=== PATIENT | male | born 1955 | race Caucasian/White ===

== ENCOUNTER 2021-01-13 07:46 | Outpatient (REF) | payer MEDICARE, SELFPAY ==
[2021-01-13 11:33] LABS: Basophils Absolute Auto 0.1 X10*3/uL (0.0-0.2); Imm Gran Pct Auto 0.3 % (0.0-0.4); MANUAL DIFF FLAG SCAN; Neutrophils Percent Auto 70.7 % (45-73); Red Blood Count 5.29 X10*6/uL (4.60-5.80); SCAN SMEAR FLAG 1
[2021-01-13 11:35] LABS: Eosinophils Absolute Auto 0.4 X10*3/uL (0.0-0.4); Eosinophils Percent Auto 3.5 % (0-4); Hematocrit 48.9 % (42-52); Hemoglobin 17.1 g/dl (14.0-18.0); Imm Gran Abs Auto 0.04 X10*3/uL (0.00-0.03); Lymphocytes Absolute Auto 2.1 X10*3/uL (1.2-4.9); Lymphocytes Percent Auto 17.7 % (20-40); Mean Corpuscular Hemoglobin 32.3 pg (27.0-33.0); Mean Corpuscular Volume 92.4 fL (80-98); Monocytes Absolute Auto 0.8 X10*3/uL (0.1-1.2); Monocytes Percent Auto 6.8 % (2-11); Neutrophils Absolute Auto 8.3 X10*3/uL (2.0-8.3); PLT ABN DIST 1; PLT CLUMP 1; Red Cell Distribution Width 12.3 % (11.0-16.0)
[2021-01-13 12:03] LABS: White Blood Count 11.7 X10*3/uL (4.8-10.8)
[2021-01-13 12:04] LABS: Platelet Count 174 X10*3/uL (160-400); SLIDE REVIEW VERIFIED
== END 2021-01-13 07:47 | disposition home or self-care (01) ==
LOC: HO.WFDLDS 07:46
PROVIDERS: Visit Provider Student in an Organized Health Care Education/Training Program
DX: J44.9 Chronic obstructive pulmonary disease, unspecified (principal)
CPT/HCPCS: 36415; 85025

== ENCOUNTER 2021-04-29 11:26 | Outpatient (REF) | payer MEDICARE, SELFPAY ==
[2021-04-29 14:57] LABS: Prostate Specific Antigen Scr < 0.05 ng/mL (<0.05-4.0); TSH reflex Free T4 0.65 uIU/mL (0.32-4.0)
[2021-04-29 15:07] LABS: Alanine Aminotransferase 53 U/L (0-40); Alkaline Phosphatase 85 U/L (39-117); Anion Gap 10 (12-20); Aspartate Amino Transferase 38 U/L (5-37); Bilirubin Total 0.3 mg/dL (0.0-1.0); Blood Urea Nitrogen 22 mg/dL (9-16); Carbon Dioxide 29 mmol/L (22-29); Chloride 107 mmol/L (96-108); Cholesterol 89 mg/dL; Estimated Glomerular Filt Rate > 60; Glucose Fasting 89 mg/dL (60-99); HDL Cholesterol 24 mg/dL; LDL Cholesterol Calculated 54 mg/dl; Potassium 4.1 mmol/L (3.3-5.1); Sodium 142 mmol/L (135-145); Total Protein 6.6 g/dL (6.5-8.0); Triglycerides 57 mg/dL
== END 2021-04-29 11:27 | disposition home or self-care (01) ==
LOC: HO.WFDLDS 11:26
PROVIDERS: Visit Provider Family Medicine
DX: Z00.00 Encounter for general adult medical examination without abnormal findings (principal); Z12.5 Encounter for screening for malignant neoplasm of prostate
CPT/HCPCS: 36415; 80053; 80061; 84153; 84443

== ENCOUNTER → 2021-05-19 10:18 | Outpatient (BNVA) | payer MEDICARE, SELFPAY | PROVIDERS: PCP Family Medicine; Visit Provider Surgery Vascular Surgery | DX: I73.9 Peripheral vascular disease, unspecified (principal); I65.21 Occlusion and stenosis of right carotid artery; Z79.82 Long term (current) use of aspirin; Z79.899 Other long term (current) drug therapy | CPT/HCPCS: 99202 ==

== ENCOUNTER → 2021-06-02 13:10 | Outpatient (BNVA) | payer MEDICARE, SELFPAY | PROVIDERS: PCP Family Medicine; Referring Provider Family Medicine; Visit Provider Internal Medicine | DX: I25.10 Atherosclerotic heart disease of native coronary artery without angina pectoris (principal); I10 Essential (primary) hypertension; I73.9 Peripheral vascular disease, unspecified; F17.200 Nicotine dependence, unspecified, uncomplicated; I25.2 Old myocardial infarction; Z79.82 Long term (current) use of aspirin; Z79.899 Other long term (current) drug therapy; Z95.5 Presence of coronary angioplasty implant and graft | CPT/HCPCS: 93005; 99202 ==

== ENCOUNTER 2021-06-16 10:06 | Outpatient (REF) | payer MEDICARE, SELFPAY ==
--- NOTE | ~2021-06-16 | US_ITS ---
EXAMINATION: US EXTRACRANIAL CAROTID DUPLEX, BILATERAL CLINICAL INFORMATION: History of endarterectomy. COMPARISON: None TECHNIQUE: Real-time ultrasound and Doppler techniques (integrating B-mode 2-D vascular images, Doppler spectral analysis and color-flow Doppler imaging) were utilized to interrogate the extracranial carotid arteries, the vertebral arteries and proximal subclavian arteries bilaterally. The degree of stenosis is determined by criteria similar to NASCET. FINDINGS: Right Side: 1. There is moderate atherosclerotic plaque seen in the proximal ICA region. 2. The common carotid artery PSV proximally is 95 cm/s and distally 94 cm/s. 3. The proximal internal carotid artery velocities are 160 cm/s systolic and 27 cm/s diastolic. 4. The proximal external carotid artery PSV is 317 cm/s. 5. The vertebral artery shows antegrade flow. 6. The subclavian artery waveforms are normal. Left Side: 1. There is mild atherosclerotic plaque seen in the bifurcation/proximal ICA region. 2. The common carotid artery PSV proximally is 110 cm/s and distally 110 cm/s. 3. The proximal internal carotid artery velocities are 117 cm/s systolic and 24 cm/s diastolic. 4. The proximal external carotid artery PSV is 132 cm/s. 5. The vertebral artery shows antegrade flow. 6. The subclavian artery waveforms are normal. US/US carotid duplex BI IMPRESSION: 1. RIGHT: Moderate, hemodynamically significant stenosis of the proximal right internal carotid artery corresponding to a 50-79% stenosis by velocity criteria. 2. LEFT: Minimal, non-hemodynamically significant stenosis of the proximal left internal carotid artery corresponding to a 0-49% stenosis by velocity criteria.
--- NOTE | ~2021-06-16 | US_ITS ---
EXAMINATION: COLOR-FLOW DUPLEX IMAGING OF THE BILATERAL LOWER EXTREMITY ARTERIAL SYSTEM. VELOCITY MEASUREMENTS THROUGHOUT THE FEMORAL ARTERIES WITH ANKLE-BRACHIAL PERIPHERAL ARTERIAL TESTING. Interventional Radiologist: Jarad Vázquez M.D., F.S.I.R., F.A.C.R. CLINICAL INFORMATION: This is a 66-year-old male with peripheral vascular disease. RIGHT FEMORAL RUNOFF VELOCITIES: The right common femoral artery measures 164 cm/s and triphasic. The right profunda femoral artery is 195 cm/s and is triphasic. Right proximal superficial femoral artery measures 128 cm/s and triphasic. Mid superficial femoral artery is 75 cm/s and monophasic. Distal right superficial femoral artery measures 118 cm/s and is monophasic. Right popliteal velocity measures 44 cm/s and is monophasic. The posterior tibial artery velocity measures 25 cm/s and was biphasic. The right ankle-brachial index is 0.72. LEFT FEMORAL RUNOFF VELOCITIES: The left common femoral artery measures 148 cm/s and triphasic. The left profunda femoral artery is 176 cm/s and is biphasic. Left proximal superficial femoral artery measures 63 cm/s and biphasic. Mid superficial femoral artery is occluded. Distal left superficial femoral artery measures 12 cm/s and is monophasic. Left popliteal velocity measures 12 cm/s and is monophasic. The posterior tibial artery velocity measures 23 cm/s and was monophasic. The left ankle-brachial index is 0.45. US/US arterial duplex LE BI IMPRESSION: 1. There is a suspicion for a hemodynamically significant stenosis in the mid right superficial femoral artery with a decreased ankle-brachial index of 0.7. 2. There is a an occlusion in the left mid superficial femoral artery with a hemodynamically significant decreased ankle-brachial index of 0.5.
--- NOTE | ~2021-06-16 | US_ITS ---
EXAMINATION: COLOR-FLOW DUPLEX IMAGING OF THE BILATERAL LOWER EXTREMITY ARTERIAL SYSTEM. VELOCITY MEASUREMENTS THROUGHOUT THE FEMORAL ARTERIES WITH ANKLE-BRACHIAL PERIPHERAL ARTERIAL TESTING. Interventional Radiologist: Jarad Vázquez M.D., F.S.I.R., F.A.C.R. CLINICAL INFORMATION: This is a 66-year-old male with peripheral vascular disease. RIGHT FEMORAL RUNOFF VELOCITIES: The right common femoral artery measures 164 cm/s and triphasic. The right profunda femoral artery is 195 cm/s and is triphasic. Right proximal superficial femoral artery measures 128 cm/s and triphasic. Mid superficial femoral artery is 75 cm/s and monophasic. Distal right superficial femoral artery measures 118 cm/s and is monophasic. Right popliteal velocity measures 44 cm/s and is monophasic. The posterior tibial artery velocity measures 25 cm/s and was biphasic. The right ankle-brachial index is 0.72. LEFT FEMORAL RUNOFF VELOCITIES: The left common femoral artery measures 148 cm/s and triphasic. The left profunda femoral artery is 176 cm/s and is biphasic. Left proximal superficial femoral artery measures 63 cm/s and biphasic. Mid superficial femoral artery is occluded. Distal left superficial femoral artery measures 12 cm/s and is monophasic. Left popliteal velocity measures 12 cm/s and is monophasic. The posterior tibial artery velocity measures 23 cm/s and was monophasic. The left ankle-brachial index is 0.45. US/US NATALYA complete IMPRESSION: 1. There is a suspicion for a hemodynamically significant stenosis in the mid right superficial femoral artery with a decreased ankle-brachial index of 0.7. 2. There is a an occlusion in the left mid superficial femoral artery with a hemodynamically significant decreased ankle-brachial index of 0.5.
== END 2021-06-16 10:07 | disposition home or self-care (01) ==
LOC: HO.US 10:06
PROVIDERS: PCP Family Medicine; Visit Provider Surgery Vascular Surgery
DX: I73.9 Peripheral vascular disease, unspecified (principal); I65.29 Occlusion and stenosis of unspecified carotid artery
CPT/HCPCS: 93880; 93923; 93925

== ENCOUNTER → 2021-06-30 13:43 | Outpatient (BNVA) | payer MEDICARE, SELFPAY | PROVIDERS: PCP Family Medicine; Visit Provider Surgery Vascular Surgery | DX: I65.29 Occlusion and stenosis of unspecified carotid artery (principal); I73.9 Peripheral vascular disease, unspecified | CPT/HCPCS: 99212 ==

== ENCOUNTER → 2021-07-07 14:54 | Outpatient (BNVA) | payer MEDICARE, SELFPAY | PROVIDERS: PCP Family Medicine; Visit Provider Urology | DX: C61 Malignant neoplasm of prostate (principal) | CPT/HCPCS: 99202 ==

== ENCOUNTER 2021-07-15 05:57 | Day surgery (SDC) | payer MEDICARE, SELFPAY ==
[2021-07-15] VITALS (9 sets, daily range): BP systolic 120–152; BP diastolic 43–67; PULSE 45–61; RESP 16–17; TEMP 36.1–36.8; O2SAT 96–100; BMI 26.8
[2021-07-15 06:39] LABS: MANUAL DIFF FLAG NO
[2021-07-15] MEDS: 0.9 % Sodium Chloride 1,000 ML 100 ML IVCONT (06:41)
[2021-07-15 06:44] LABS: Basophils Absolute Auto 0.1 X10*3/uL (0.0-0.2); Eosinophils Absolute Auto 0.6 X10*3/uL (0.0-0.4); Eosinophils Percent Auto 5.1 % (0-4); Hematocrit 48.9 % (42.0-52.0); Hemoglobin 16.9 g/dl (14.0-18.0); Imm Gran Abs Auto 0.02 X10*3/uL (0.00-0.03); Imm Gran Pct Auto 0.2 % (0.0-0.4); Lymphocytes Absolute Auto 2.4 X10*3/uL (1.2-4.9); Lymphocytes Percent Auto 21.3 % (20-40); Mean Corpuscular HGB Conc 34.6 g/dl (31.0-36.0); Mean Corpuscular Hemoglobin 31.9 pg (27.0-33.0); Mean Corpuscular Volume 92.3 fL (80.0-98.0); Mean Platelet Volume 12.7 fL (9.4-12.4); Monocytes Absolute Auto 0.7 X10*3/uL (0.1-1.2); Monocytes Percent Auto 6.2 % (2-11); Neutrophils Absolute Auto 7.3 x10*3/uL (2.0-8.3); Neutrophils Percent Auto 66.2 % (45-73); Platelet Count 166 X10*3/uL (160-400); Red Cell Distribution Width 12.6 % (11.0-16.0); White Blood Count 11.1 X10*3/uL (4.8-10.8)
[2021-07-15 06:55] LABS: Blood Urea Nitrogen 24 mg/dL (9-16); Creatinine Clr Calc Pharmacy 54.5; Estimated Glomerular Filt Rate > 60
--- NOTE | 2021-07-15 09:32 | P.OP_ITS ---
Operative Note Operative Note Date of Service: 07/15/21 Narrative: Angiogram report from [facility] Preoperative diagnosis: Atherosclerosis of right lower extremity with activity limiting claudication Postoperative diagnosis: Same Procedure: 1. Ultrasound-guided left common femoral access 2. Aortogram with bilateral lower extremity runoff 3. Right SFA atherectomy and stent Surgeon:Naveed Mckeon M.D., FACS, RPVI Automation Operator:None Anesthesia: Local with moderate conscious sedation. Total intraservice moderat e sedation time was 66 minutes. I monitored the patient's level of consciousness and physiologic status continuously throughout the procedure. Specimens:none Drains:none Estimated blood loss: Less than 10 ml Implant: Medtronic Ev-3 5 x 60 stent Indications: 66-year-old gentleman with prior smoking history has severe activity limiting claudication on bilateral lower extremities. He reports symptomatic Masha he is right worse than left. He now presents for endovascular intervention The patient has signed the informed consent after reviewing risks, complications, benefits, and alternatives previously discussed with the patient. The patient was given the opportunity to ask any additional questions or voice any concerns. All questions were answered to the patient's satisfaction. Procedure in detail: Patient was brought to the angiography suite prior to which a time-out was called for patient identification and site verification. Bilateral groins were prepped and draped in the standard surgical fashion. Under ultrasound guidance leftcommon femoral was punctured with micro puncture needle and wire. Subsequently a precision 5 [place] sheath was then placed. Bentson wire was advanced to the level of the aorta. 5 [place] Flush catheter was brought up and parked at the level of the renal arteries. Aortogram was then undertaken. Catheter was brought down to the level of the iliac bifurcation. Iliacs were subsequently imaged. Catheter was then brought in up and over to the right side SFA. Runoff study was then undertaken. We noted in the right distal SFA near Gallo's canal there was a near total occlusion. We then gave 5000 units of systemic heparin. After 5 minutes of circulation time up and over 6 [place] sheath was then placed. We advanced a Glidewire Advantage. We were able to traverse the lesion. Once across we exchanged out for 5 [place] spider wire. Hawk-1 atherectomy device was then used. Multiple unidirectional passes were then undertaken. This did reduce the atherosclerotic burden. There was still residual stenosis and a question of a focal dissection. At this time we plasty the area with a 5 x 40 balloon. Subsequently we brought in a 5 x 60 regular stent. Once in position this was then subsequently deployed. Post deployment we plasty this area with a 5 x 40 balloon. This was to obtain good wall apposition. Once this was accomplished we but the catheter wire sheath back to the ipsilateral side which was the left lower extremity. Runoff of this still extremity was undertaken as well. No intervention was performed on the left lower extremity. Once this was all accomplished StarClose closure device was deployed. At the end the case sponge instrument counts were correct. Patient tolerated the procedure well. Returned to recovery with stable vitals. Interpretation of films: 1. Ultrasound demonstrates appropriate femoral puncture. Image of which was saved. 2. Aortogram demonstrates appropriate caliber aorta. Minimal disease. Appropriate take-off of the renals. 3. Iliac images demonstrate small in caliber and mild disease at the takeoff of the right iliac. 4. Right Leg Common femoral artery: Mild disease in the common femoral area Profundus Femoris: No significant disease Superficial femoral artery: Smaller in caliber and high-grade stenosis at Gallo's canal Popliteal artery (p1,p2,p3): Reconstitutes Anterior tibial artery: Patent all the way down to the ankle Peroneal artery: Occluded Posterior tibial artery: Occluded Dorsalis pedis/plantar arch: Incomplete 4. Left Leg Common femoral artery: No significant disease Profundus Femoris: No significant disease Superficial femoral artery: Total occlusion from origin with reconstitution at the above knee popliteal Popliteal artery (p1,p2,p3): Small in caliber with significant disease at the P2 segment of the behind knee popliteal Anterior tibial artery: Patent all the way down to the ankle Peroneal artery: Occluded Posterior tibial artery: Occluded Dorsalis pedis/plantar arch: Incomplete Conclusion: 1. Successful atherectomy and stent of right SFA. Should left lower extremity need intervention this would be an open fem below-knee bypass. 2. Anticoagulation status: Continue aspirin and Plavix for 6 months This note is constructed using voice recognition software. While every effort has been made to ensure accuracy, what job titles mean errors may have been included. Thank you for allowing me to participate in the care of your patient. Yours sincerely, Naveed Mckeon MD, FACS, R.P.V.I.
[2021-07-15] MEDS: Clopidogrel Bisulfate 300 MG TABLET PO (09:38)
== END 2021-07-15 12:26 | disposition home or self-care (01) ==
PROVIDERS: PCP Family Medicine; Visit Provider Surgery Vascular Surgery
DX: I70.211 Atherosclerosis of native arteries of extremities with intermittent claudication, right leg (principal); I10 Essential (primary) hypertension; I25.2 Old myocardial infarction; E78.00 Pure hypercholesterolemia, unspecified; Z79.02 Long term (current) use of antithrombotics/antiplatelets; Z79.82 Long term (current) use of aspirin; Z79.899 Other long term (current) drug therapy; F17.210 Nicotine dependence, cigarettes, uncomplicated
CPT/HCPCS: 36415; 37227; 76937; 82565; 84520; 85025; 99152; 99153; C1714; C1725; C1760; C1769; C1876; C1884; C1887; J2250; J3010; Q9967

== ENCOUNTER 2021-07-21 07:28 | Outpatient (REF) | payer MEDICARE, SELFPAY ==
[2021-07-21 12:13] LABS: Alanine Aminotransferase 49 U/L (0-40); Albumin Level 4.1 g/dL (3.5-5.0); Alkaline Phosphatase 84 U/L (39-117); Anion Gap 14 (12-20); Aspartate Amino Transferase 31 U/L (5-37); Bilirubin Total 0.8 mg/dL (0.0-1.0); Blood Urea Nitrogen 24 mg/dL (9-16); Calcium 9.3 mg/dL (8.4-10.2); Carbon Dioxide 26 mmol/L (22-29); Chloride 103 mmol/L (96-108); Cholesterol 110 mg/dL; Estimated Glomerular Filt Rate > 60; Glucose Random 95 mg/dL (60-115); HDL Cholesterol 28 mg/dL; LDL Cholesterol Calculated 70 mg/dl; Potassium 4.2 mmol/L (3.3-5.1); Sodium 139 mmol/L (135-145); Total Protein 6.7 g/dL (6.5-8.0); Triglycerides 61 mg/dL
== END 2021-07-21 07:29 | disposition home or self-care (01) ==
LOC: HO.WFDLDS 07:28
PROVIDERS: Visit Provider Family Medicine
DX: E78.6 Lipoprotein deficiency (principal); R74.8 Abnormal levels of other serum enzymes
CPT/HCPCS: 36415; 80053; 80061

== ENCOUNTER → 2021-07-29 09:24 | Outpatient (REF) | payer MEDICARE, SELFPAY ==
--- NOTE | 2021-07-29 09:28 | CA_ITS ---
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 Study Quality: Adequate ECG Rhythm: Bradycardia Conclusions: - The left ventricular systolic function is normal. The calculated ejection fraction is 67% by biplane method. - There is mild calcification of the aortic valve. - The mid inferior segment is hypokinetic. - The basal inferior segment is akinetic. Findings Left Ventricle Normal left ventricular cavity size. The left ventricular systolic function is normal. The calculated ejection fraction is 67% by biplane method. There is evidence of regional wall motion abnormalities. E/E prime ratio is >15, consistent with elevated filling pressures. Evidence suggests grade I (mild) diastolic dysfunction. There is mild septal asymmetric hypertrophy. LV peak GLS -17.5%. Wall Motion Rest Echo Findings The mid inferior segment is hypokinetic. The basal inferior segment is akinetic. Right Ventricle Normal right ventricular cavity size and systolic function. Atria Both atria are normal in size. Aortic Valve There is a normal trileaflet aortic valve. There is mild calcification of the aortic valve. There is no aortic valve stenosis. There is no aortic valve regurgitation. Mitral Valve The mitral valve appears normal. There is trace mitral valve regurgitation. There is no mitral valve stenosis. Pulmonic Valve The pulmonic valve is likely normal. Tricuspid Valve Normal tricuspid valve structure. There is no tricuspid valve regurgitation. Tricuspid regurgitation envelope is inadequate for calculation of right ventricular systolic pressure. Great Vessels The aortic annulus, sinuses of valsalva, and asc aorta are normal in size. Venous The inferior vena cava is normal in size and collapses greater than 50% with inspiration. Pericardium/Pleural There is no evidence of pericardial effusion. Prior Study Comparison No prior study available for comparison. Measurements 2D Linear Measurements IVSd: 1.21 0.6-0.9/0.6-1.0 cm LVIDd: 4.52 3.9-5.3/4.2-5.9 cm LVIDs: 3.16 2.0-3.6 cm LVPWd: 0.81 0.7-1.1 cm LA Diam: 3.60 2.7-3.8/3.0-4.0 cm LV Mass: 195.01 67-162/88-224 g LVOT Diam: 2.00 3.0+(-)1.3 cm 2D Systolic Function EF 4C: 64.70 >55% EF 2C: 67.70 >55% EF BiP: 66.60 >55% Mitral Valve MV Pk E: 1.02 MV PK A: 0.69 MV Decel Time: 210.00 E/A: 1.50 E'Lateral: 7.62 E'Medial: 5.55 E/E' Med: 18.40 E/E' Lat: 13.40 PHT: 62.00 MVA PHT: 3.55 Decel [place]: 4.83 Aortic Valve AoV Pk Derrell: 1.11 AoV Mn Derrell: 0.74 AoV VTI: 0.24 AoV Pk Grad: 5.00 Aov Mn Grad: 2.00 QUE Cont.VTI: 2.69 LVOT LVOT Pk Derrell: 1.04 LVOT Mn Derrell: 0.67 LVOT VTI: 0.21 LVOT Pk Grad: 4.00 LVOT Mn Grad: 2.00 LVOT Diam: 2.00 LVOT Area: 3.14 Diastolic Function MV Pk E: 1.02 MV Pk A: 0.69 E/A: 1.50 E'Medial: 5.55 E/E' Med: 18.40 E' Laterial: 7.62 E/E' Lat: 13.40 Right Ventricle TAPSE (mm): 18.20 TVS' Derrell: 10.10 Tricuspid Valve RA Press: 3.00 Great Vessels Aorta Sinus of Valsalva: 2.87 2.0-3.[address] [place]: 2.56 1.7-3.4 cm Ao Asc: 3.20 2.1-3.4 cm Pulmonary Veins Pulm Vein S/D 1.30 Pulmonary Valve PV Pk Derrell: 0.98 Peak PV Grad: 4.00 Updated in Other Vendor System with Status of Final Toro Solo MD electronically signed on 07/30/2021 1:50:34 PM with status of Final
== END ==
LOC: HO.CARD 09:24
PROVIDERS: Visit Provider Internal Medicine
DX: I25.10 Atherosclerotic heart disease of native coronary artery without angina pectoris (principal)
CPT/HCPCS: 93306

== ENCOUNTER → 2021-07-30 13:50 | Outpatient (BNVA) | payer MEDICARE, SELFPAY | PROVIDERS: PCP Family Medicine; Visit Provider Surgery Vascular Surgery | DX: I73.9 Peripheral vascular disease, unspecified (principal) | CPT/HCPCS: 99212 ==

== ENCOUNTER → 2021-09-01 09:19 | Outpatient (BNVA) | payer MEDICARE, SELFPAY | PROVIDERS: PCP Family Medicine; Referring Provider Family Medicine; Visit Provider Internal Medicine | DX: I25.10 Atherosclerotic heart disease of native coronary artery without angina pectoris (principal); I73.9 Peripheral vascular disease, unspecified; I10 Essential (primary) hypertension; F17.210 Nicotine dependence, cigarettes, uncomplicated; Z95.5 Presence of coronary angioplasty implant and graft | CPT/HCPCS: 99212 ==

== ENCOUNTER 2021-09-28 09:20 | Outpatient (REF) | payer MEDICARE, SELFPAY ==
--- NOTE | ~2021-09-28 | US_ITS ---
EXAMINATION: COLOR-FLOW DUPLEX IMAGING OF THE BILATERAL LOWER EXTREMITY ARTERIAL SYSTEM. VELOCITY MEASUREMENTS THROUGHOUT THE FEMORAL ARTERIES WITH ANKLE-BRACHIAL PERIPHERAL ARTERIAL TESTING. Interventional Radiologist: Jarad Vázquez M.D., F.S.I.R., F.A.C.R. CLINICAL INFORMATION: This is a 66-year-old male with bilateral peripheral vascular disease. Previous right femoral stent. COMPARISON: Comparison is made to the previous study dated 06/16/2021 which demonstrated a 0.5 left ankle-brachial index and a 0.7 right ankle-brachial index. Monophasic waveforms were also noted throughout the right superficial femoral artery. RIGHT FEMORAL RUNOFF VELOCITIES: The right common femoral artery measures 194 cm/s and triphasic. Previously, this measured 164 cm/s. The right profunda femoral artery is 221 cm/s and is triphasic. Previously, this measured 195 cm/s. Right proximal superficial femoral artery measures 145 cm/s and biphasic. Mid superficial femoral artery is 103 cm/s and biphasic. Previously, this was 75 cm/s and monophasic. Distal right superficial femoral artery measures 86 cm/s and is biphasic. Previously, this was 118 cm/s and monophasic. Right popliteal velocity measures 49 cm/s and is biphasic. Previously, this was 44 cm/s and monophasic. The posterior tibial artery velocity measures 52 cm/s and was biphasic. Previously, this was 25 cm/s and biphasic. The right ankle-brachial index is 0.89. Previously, this measured 0.7. RIGHT SUPERFICIAL FEMORAL ARTERY STENT VELOCITIES: [place] artery proximal to stent: 126 cm/s and biphasic. Proximal stent: 113 cm/s and biphasic. Mid stent: 108 cm/s and biphasic. Distal stent: 107 cm/s and biphasic. [place] artery distal to stent 96 cm/s and biphasic. LEFT FEMORAL RUNOFF VELOCITIES: The left common femoral artery measures 134 cm/s and monophasic. The left profunda femoral artery is 399 cm/s and is monophasic. Left proximal superficial femoral artery measures 108 cm/s. Previously, this was noted to be occluded and confirmed on the angiogram. Mid superficial femoral artery is occluded. This was previously noted to be occluded with low flows distally. Distal left superficial femoral artery is occluded. Left popliteal velocity measures 13 cm/s and is monophasic. Some flow was demonstrated on the previous study in the posterior tibial artery. No flow is seen on the current study. The posterior tibial artery is occluded. The left ankle-brachial index is 0.49. Previously, this measured 0.5. US/US NATALYA complete IMPRESSION: 1. The patient is now status post right superficial femoral artery stenting. The stent appears to be patent. There is improvement in the right ankle-brachial index. There is a focal stenosis in the proximal right profunda femoral artery. 2. The left superficial femoral artery appears to be occluded. There appears to be a high-grade stenosis in the left profunda femoral artery.
--- NOTE | ~2021-09-28 | US_ITS ---
EXAMINATION: COLOR-FLOW DUPLEX IMAGING OF THE BILATERAL LOWER EXTREMITY ARTERIAL SYSTEM. VELOCITY MEASUREMENTS THROUGHOUT THE FEMORAL ARTERIES WITH ANKLE-BRACHIAL PERIPHERAL ARTERIAL TESTING. Interventional Radiologist: Jarad Vázquez M.D., F.S.I.R., F.A.C.R. CLINICAL INFORMATION: This is a 66-year-old male with bilateral peripheral vascular disease. Previous right femoral stent. COMPARISON: Comparison is made to the previous study dated 06/16/2021 which demonstrated a 0.5 left ankle-brachial index and a 0.7 right ankle-brachial index. Monophasic waveforms were also noted throughout the right superficial femoral artery. RIGHT FEMORAL RUNOFF VELOCITIES: The right common femoral artery measures 194 cm/s and triphasic. Previously, this measured 164 cm/s. The right profunda femoral artery is 221 cm/s and is triphasic. Previously, this measured 195 cm/s. Right proximal superficial femoral artery measures 145 cm/s and biphasic. Mid superficial femoral artery is 103 cm/s and biphasic. Previously, this was 75 cm/s and monophasic. Distal right superficial femoral artery measures 86 cm/s and is biphasic. Previously, this was 118 cm/s and monophasic. Right popliteal velocity measures 49 cm/s and is biphasic. Previously, this was 44 cm/s and monophasic. The posterior tibial artery velocity measures 52 cm/s and was biphasic. Previously, this was 25 cm/s and biphasic. The right ankle-brachial index is 0.89. Previously, this measured 0.7. RIGHT SUPERFICIAL FEMORAL ARTERY STENT VELOCITIES: [place] artery proximal to stent: 126 cm/s and biphasic. Proximal stent: 113 cm/s and biphasic. Mid stent: 108 cm/s and biphasic. Distal stent: 107 cm/s and biphasic. [place] artery distal to stent 96 cm/s and biphasic. LEFT FEMORAL RUNOFF VELOCITIES: The left common femoral artery measures 134 cm/s and monophasic. The left profunda femoral artery is 399 cm/s and is monophasic. Left proximal superficial femoral artery measures 108 cm/s. Previously, this was noted to be occluded and confirmed on the angiogram. Mid superficial femoral artery is occluded. This was previously noted to be occluded with low flows distally. Distal left superficial femoral artery is occluded. Left popliteal velocity measures 13 cm/s and is monophasic. Some flow was demonstrated on the previous study in the posterior tibial artery. No flow is seen on the current study. The posterior tibial artery is occluded. The left ankle-brachial index is 0.49. Previously, this measured 0.5. US/US arterial duplex LE BI IMPRESSION: 1. The patient is now status post right superficial femoral artery stenting. The stent appears to be patent. There is improvement in the right ankle-brachial index. There is a focal stenosis in the proximal right profunda femoral artery. 2. The left superficial femoral artery appears to be occluded. There appears to be a high-grade stenosis in the left profunda femoral artery.
== END 2021-09-28 09:21 | disposition home or self-care (01) ==
LOC: HO.US 09:20
PROVIDERS: Visit Provider Surgery Vascular Surgery
DX: I73.9 Peripheral vascular disease, unspecified (principal)
CPT/HCPCS: 93923; 93925

== ENCOUNTER → 2021-10-06 10:04 | Outpatient (BNVA) | payer MEDICARE, SELFPAY | PROVIDERS: PCP Family Medicine; Visit Provider Surgery Vascular Surgery | DX: I73.9 Peripheral vascular disease, unspecified (principal); Z79.02 Long term (current) use of antithrombotics/antiplatelets; Z79.82 Long term (current) use of aspirin; Z79.899 Other long term (current) drug therapy | CPT/HCPCS: 99212 ==

== ENCOUNTER 2021-10-27 08:31 | Outpatient (REF) | payer MEDICARE, SELFPAY ==
[2021-10-27 12:27] LABS: Prostate Specific Antigen < 0.05 ng/mL (<0.05-4.0)
== END 2021-10-27 08:32 | disposition home or self-care (01) ==
LOC: HO.WFDLDS 08:31
PROVIDERS: Visit Provider Urology
DX: Z12.5 Encounter for screening for malignant neoplasm of prostate (principal); C61 Malignant neoplasm of prostate
CPT/HCPCS: 36415; 84153

== ENCOUNTER → 2021-11-06 11:12 | Outpatient (BNVA) | payer MEDICARE, SELFPAY | PROVIDERS: PCP Family Medicine; Visit Provider Urology | DX: C61 Malignant neoplasm of prostate (principal) | CPT/HCPCS: Q3014 ==

== ENCOUNTER 2022-01-06 08:42 | Outpatient (REF) | payer MEDICARE, SELFPAY ==
[2022-01-06 11:41] LABS: Alanine Aminotransferase 57 U/L (0-40); Albumin Level 4.1 g/dL (3.5-5.0); Alkaline Phosphatase 86 U/L (39-117); Anion Gap 17 (12-20); Aspartate Amino Transferase 40 U/L (5-37); Bilirubin Total 0.6 mg/dL (0.0-1.0); Blood Urea Nitrogen 23 mg/dL (9-16); Calcium 8.6 mg/dL (8.4-10.2); Carbon Dioxide 20 mmol/L (22-29); Chloride 101 mmol/L (96-108); Estimated Glomerular Filt Rate > 60; Glucose Random 75 mg/dL (60-115); Potassium 4.2 mmol/L (3.3-5.1); Sodium 134 mmol/L (135-145); Total Protein 6.9 g/dL (6.5-8.0)
[2022-01-06 11:59] LABS: Creatinine Urine 31.59 mg/dL; Microalbumin Urine < 5.0 mg/L
== END 2022-01-06 08:43 | disposition home or self-care (01) ==
LOC: HO.WFDLDS 08:42
PROVIDERS: Visit Provider Family Medicine
DX: I10 Essential (primary) hypertension (principal); R74.8 Abnormal levels of other serum enzymes
CPT/HCPCS: 36415; 80053; 82043

== ENCOUNTER → 2022-03-02 09:26 | Outpatient (BNVA) | payer MEDICARE, SELFPAY | PROVIDERS: PCP Family Medicine; Referring Provider Family Medicine; Visit Provider Internal Medicine | DX: I25.10 Atherosclerotic heart disease of native coronary artery without angina pectoris (principal); I73.9 Peripheral vascular disease, unspecified; I10 Essential (primary) hypertension; F17.210 Nicotine dependence, cigarettes, uncomplicated; Z95.5 Presence of coronary angioplasty implant and graft | CPT/HCPCS: 99212 ==

== ENCOUNTER 2022-03-02 10:40 | Outpatient (REF) | payer MEDICARE, SELFPAY ==
[2022-03-02 14:45] LABS: Prostate Specific Antigen < 0.10 ng/mL (<0.05-4.0)
== END 2022-03-02 10:41 | disposition home or self-care (01) ==
LOC: HO.WFDLDS 10:40
PROVIDERS: Visit Provider Urology
DX: Z12.5 Encounter for screening for malignant neoplasm of prostate (principal); C61 Malignant neoplasm of prostate
CPT/HCPCS: 36415; 84153

== ENCOUNTER 2022-03-03 08:22 | Outpatient (REF) | payer MEDICARE, SELFPAY ==
--- NOTE | ~2022-03-03 | US_ITS ---
EXAMINATION: US ABDOMEN LIMITED WITH LIVER ELASTOGRAPHY CLINICAL INFORMATION: Abnormal liver enzymes. COMPARISON: None. TECHNIQUE: Real-time imaging of the abdominal viscera. Noninvasive ultrasound liver fibrosis assessment is performed using Vikas ElastPQ point quantification shear wave elastography (2D-SWE) with a C5-2 MHz transducer. Multiple elastography samples are obtained. FINDINGS: PANCREAS: The pancreas is mostly obscured by overlying gas.. LIVER: Normal. The liver demonstrates normal size, contour and echogenicity. No focal lesion or intrahepatic biliary duct dilatation. The right lobe measures 12.8 cm in length. The left lobe measures 8.0 cm in length. Portal flow is hepatopedal Shear wave liver elastography median stiffness is 1.92 m/s (reference: normal median stiffness is 1.3 m/s or less). IQR/median stiffness to assess sampling precision is 0.14 (reference: good quality data set is IQR/median stiffness of 0.15 or less). GALLBLADDER: The gallbladder is physiologically distended without evidence of stones, sludge, polyps, wall thickening or pericholecystic fluid. There are several echogenic nonmobile polyps in the gallbladder neck largest measuring 0.5 x 0.3 x 0.5 cm. COMMON BILE DUCT: Normal in caliber measuring 0.5 cm in diameter. RIGHT KIDNEY: Normal. No hydronephrosis. No renal calculi or focal parenchymal lesions. The kidney measures 10.0 cm in maximum dimension. FREE FLUID: None. US/US abdomen billy w elastography IMPRESSION: 1. Multiple gallbladder polyps at least 4. No echogenic gallstones or wall thickening. Limited abdominal ultrasound is unremarkable. 2. Liver elastography: Median liver stiffness measures 1.92 m/s which corresponds to cACLD (suggestive). REFERENCE: Society of Radiologists in Ultrasound Liver Stiffness Thresholds (2020): LIVER STIFFNESS THRESHOLDS: *Liver Stiffness equal or less than 1.3 m/s: High probability of being normal. *Liver Stiffness less than 1.7 m/s: In the absence of other known clinical signs, rules out compensated advanced chronic liver disease. *Liver Stiffness 1.7-2.1 m/s: Suggestive of compensated advanced chronic liver disease but need further test for confirmation. *Liver Stiffness over 2.1 m/s: Rules in compensated advanced chronic liver disease. *Liver Stiffness over 2.4 m/s: Suggestive of clinically significant portal hypertension. QUALITY OF DATA SET: *IQR/Median value equal or less than 0.15 implies a quality data set. *IQR/Median value over 0.15 implies a poor quality data set. SIGNIFICANT CHANGE FROM PRIOR EXAM: Significant change if liver stiffness measurement is 10% or greater from prior exam. OTHER CONSIDERATIONS: The stage of liver fibrosis may be overestimated in the setting of acute hepatitis, liver inflammation, elevated liver function tests, hepatic vascular congestion, obstructive cholestasis, non-fasting state, and infiltrative diseases such as amyloidosis and lymphoma. In some patients with NAFLD, the liver stiffness thresholds for compensated advanced chronic liver disease may be lower. In causes other than viral hepatitis and NAFLD, liver stiffness thresholds are not well established.
== END 2022-03-03 08:23 | disposition home or self-care (01) ==
LOC: HO.US 08:22
PROVIDERS: Visit Provider Family Medicine
DX: R74.8 Abnormal levels of other serum enzymes (principal)
CPT/HCPCS: 76705; 76981

== ENCOUNTER 2022-04-08 08:13 | Outpatient (REF) | payer MEDICARE, SELFPAY ==
--- NOTE | ~2022-04-08 | US_ITS ---
EXAMINATION: Noninvasive assessment of the bilateral lower extremities with ARTERIAL DUPLEX and ANKLE BRACHIAL INDICES (ABIs). CLINICAL INFORMATION: Peripheral vascular disease. History of right lower extremity atherectomy with superficial femoral artery stent TECHNIQUE: Duplex Doppler techniques with waveform analysis and measurement of velocities in the bilateral common femoral, profunda femoris, superficial femoral, popliteal and tibial arteries were performed. Additionally, ankle pulse volume recordings, ankle pressure measurements and ankle brachial indices were obtained of the lower extremity arterial system bilaterally. The study was performed only at rest. COMPARISON: 09/28/2021 and 06/16/2021 FINDINGS: DIRECT DUPLEX DOPPLER FINDINGS: RIGHT LEG: Common femoral artery: 152 cm/s, phasicity: Triphasic. Moderate calcified plaque Profunda femoris artery: 64.8 cm/s, phasicity: Triphasic Superficial femoral artery (proximal): 114 cm/s, phasicity: Biphasic Superficial femoral artery (mid/stent): 116 cm/s, phasicity: Biphasic Superficial femoral artery (distal/stent): 149 cm/s, phasicity: Biphasic Popliteal artery: 56.6 cm/s, phasicity: Biphasic Posterior tibial artery: 52.6 cm/s in the proximal segment and 12.4 cm/s in the distal segment, phasicity: Biphasic Peroneal artery: 57.4 cm/s, phasicity: Biphasic LEFT LEG: Common femoral artery: 158 cm/s, phasicity: Monophasic. Moderate calcified plaque Profunda femoris artery: 311 cm/s, phasicity: Monophasic Superficial femoral artery (proximal): 167 cm/s, phasicity: Monophasic Superficial femoral artery (mid): Occluded Superficial femoral artery (distal): Occluded Popliteal artery: 10.4 cm/s, phasicity: Monophasic Posterior tibial artery: 21.8 cm/s, phasicity: Monophasic Peroneal artery: 18.3 cm/s, phasicity: Monophasic ANKLE-BRACHIAL INDEX: Right: 0.77, previously 0.89? Left: 0.52, previously 0.49 ANKLE PRESSURES: Right: PT 120, DP 109 Left: PT?72, DP?74 ANKLE PVR WAVEFORMS: Right: Abnormal Left: Abnormal US/US arterial duplex LE BI IMPRESSION: Right leg: Mildly decreased ankle brachial index. Stent is seen in the right superficial femoral artery is patent without evidence of significant restenosis Left leg: Moderately decreased ankle brachial index which is stable. Occlusion of the left superficial femoral artery which is unchanged with reconstituted markedly dampened flow in the popliteal artery and below-knee runoff vessels NATALYA Reference: - >1.4 = calcified vessels - 0.9 - 1.4 = normal - no significant arterial disease - 0.7 - 0.89 = mild peripheral arterial disease - 0.51 - 0.69 = moderate peripheral arterial disease - ? 0.50 = severe peripheral arterial disease - < .30 = critical arterial disease
== END 2022-04-08 08:14 | disposition home or self-care (01) ==
LOC: HO.US 08:13
PROVIDERS: Visit Provider Surgery Vascular Surgery
DX: I73.9 Peripheral vascular disease, unspecified (principal)
CPT/HCPCS: 93923; 93925

== ENCOUNTER → 2022-04-15 10:19 | Outpatient (BNVA) | payer MEDICARE, SELFPAY | PROVIDERS: PCP Family Medicine; Visit Provider Nurse Practitioner Family | DX: C61 Malignant neoplasm of prostate (principal) | CPT/HCPCS: Q3014 ==

== ENCOUNTER → 2022-05-07 12:30 | Outpatient (BNVA) | payer MEDICARE, SELFPAY | PROVIDERS: PCP Family Medicine; Visit Provider Internal Medicine | DX: R79.89 Other specified abnormal findings of blood chemistry (principal); K82.4 Cholesterolosis of gallbladder | CPT/HCPCS: 99202 ==

== ENCOUNTER → 2022-05-13 09:20 | Outpatient (BNVA) | payer MEDICARE, SELFPAY | PROVIDERS: PCP Family Medicine; Visit Provider Surgery Vascular Surgery | DX: I73.9 Peripheral vascular disease, unspecified (principal); I65.29 Occlusion and stenosis of unspecified carotid artery | CPT/HCPCS: 99212 ==

== ENCOUNTER 2022-05-18 10:00 | Outpatient (REF) | payer MEDICARE, SELFPAY ==
[2022-05-18 10:50] LABS: Hematocrit 49.8 % (42.0-52.0); Hemoglobin 16.8 g/dl (14.0-18.0); Mean Corpuscular HGB Conc 33.7 g/dl (31.0-36.0); Mean Corpuscular Hemoglobin 29.9 pg (27.0-33.0); Mean Corpuscular Volume 88.8 fL (80.0-98.0); Mean Platelet Volume 12.4 fL (9.4-12.4); Platelet Count 174 X10*3/uL (160-400); Red Blood Count 5.61 X10*6/uL (4.60-5.80); Red Cell Distribution Width 12.7 % (11.0-16.0); White Blood Count 10.2 X10*3/uL (4.8-10.8)
[2022-05-18 10:59] LABS: INTERNATIONAL NORM RATIO 1.1 (0.9-1.1); Prothrombin Time 12.2 SEC (10.0-13.1)
[2022-05-18 11:30] LABS: Alanine Aminotransferase 38 U/L (0-40); Albumin Level 4.2 g/dL (3.5-5.0); Alkaline Phosphatase 91 U/L (39-117); Anion Gap 15 (12-20); Aspartate Amino Transferase 26 U/L (5-37); Bilirubin Direct 0.3 mg/dL (0.0-0.5); Blood Urea Nitrogen 20 mg/dL (9-16); Calcium 9.2 mg/dL (8.4-10.2); Carbon Dioxide 26 mmol/L (22-29); Chloride 105 mmol/L (96-108); Estimated Glomerular Filt Rate 59; Glucose Random 82 mg/dL (60-115); Iron 186 mcg/dL (45-160); Percent Iron Saturation 73 % (15-50); Potassium 4.8 mmol/L (3.3-5.1); Sodium 141 mmol/L (135-145); Total Iron Binding Capacity 254 mcg/dL (228-428); Total Protein 6.5 g/dL (6.5-8.0); Unsaturated Iron Binding 68 ug/dL
[2022-05-18 11:38] LABS: Ferritin 734 ng/mL (20-250)
[2022-05-19 04:40] LABS: ~Hepatitis C Antibody Nonreactive (Nonreactive)
[2022-05-19 04:55] LABS: Hepatitis A Antibody IgG Nonreactive (Nonreactive); ~Hepatitis A Antibody IgG 0.39 S/CO (0.00-0.99)
[2022-05-19 04:57] LABS: HBS Num1 0.06 mIU/mL (0-7.99); HBc Num1 0.29 S/CO (0.00-0.79); HBsAGNum1 0.28 S/CO (0.00-0.99); HIV AB/AG Nonreactive (Nonreactive); HIV Num 1 0.05 S/CO (0.00-0.99); Hepatitis B Core Antibody Nonreactive (Nonreactive); Hepatitis B Surface Antigen Negative (Negative); ~Hepatitis B Surface Antibody NONREACTIVE (Nonreactive)
[2022-05-20 14:19] LABS: Immunoglobulin A 176 mg/dL (70-320)
[2022-05-21 13:43] LABS: Transglutaminase IgA <1.0 U/mL
[2022-06-06 07:09] LABS: Phosphatidylethanol 16:0-18:1 SEE COMMENTS
== END 2022-05-18 10:01 | disposition home or self-care (01) ==
LOC: HO.LAB 10:00
PROVIDERS: PCP Family Medicine; Visit Provider Internal Medicine
DX: Z11.4 Encounter for screening for human immunodeficiency virus [HIV] (principal); R79.89 Other specified abnormal findings of blood chemistry; K74.60 Unspecified cirrhosis of liver; R74.8 Abnormal levels of other serum enzymes
CPT/HCPCS: 36415; 80053; 80321; 82248; 82728; 82784; 83540; 85027; 85610; 86364; 86704; 86706; 86708; 86803; 87340; 87389

== ENCOUNTER → 2022-05-21 10:23 | Outpatient (BNVA) | payer MEDICARE, SELFPAY | PROVIDERS: PCP Family Medicine; Visit Provider Surgery | DX: K82.4 Cholesterolosis of gallbladder (principal) | CPT/HCPCS: 99202 ==

== ENCOUNTER 2022-05-26 07:41 | Outpatient (REF) | payer MEDICARE, SELFPAY ==
[2022-05-26 08:45] LABS: Iron 132 mcg/dL (45-160); Percent Iron Saturation 57 % (15-50); Total Iron Binding Capacity 233 mcg/dL (228-428); Unsaturated Iron Binding 101 ug/dL
[2022-05-26 08:50] LABS: Ferritin 788 ng/mL (20-250)
[2022-06-04 15:13] LABS: Phosphatidylethanol 16:0-18:1 None Detected
== END 2022-05-26 07:42 | disposition home or self-care (01) ==
LOC: HO.LAB 07:41
PROVIDERS: PCP Family Medicine; Visit Provider Internal Medicine
DX: R79.89 Other specified abnormal findings of blood chemistry (principal)
CPT/HCPCS: 36415; 80321; 82728; 83540

== ENCOUNTER 2022-06-07 09:27 | Outpatient (REF) | payer MEDICARE, SELFPAY ==
[2022-06-07 09:42] LABS: MANUAL DIFF FLAG NO
[2022-06-07 10:40] LABS: Appearance Urine Clear; Color Urine Yellow; Glucose Urine UA Negative (Negative); Leukocyte Esterase Urine Small (1+) (Negative); Nitrite Urine Negative (Negative); PH 6.5 (5.0-9.0); UMIC TRIGGER UA YES; Urine Blood Negative (Negative); Urine Ketones Negative (Negative); Urine Protein Negative (Neg-Trace)
[2022-06-07 10:45] LABS: Bacteria Urine 4+ (None Seen); Hyaline Casts Urine 0-2 /LPF (0-2); RBC Urine 0-2 /HPF (0-2); Squamous Epithelial Cell Urine 0-2 /HPF (0-2)
[2022-06-07 11:02] LABS: Basophils Absolute Auto 0.2 X10*3/uL (0.0-0.2); Basophils Percent Auto 1.8 % (0-2); Eosinophils Absolute Auto 0.4 X10*3/uL (0.0-0.4); Eosinophils Percent Auto 4.4 % (0-4); Hematocrit 47.3 % (42.0-52.0); Hemoglobin 16.2 g/dl (14.0-18.0); Imm Gran Abs Auto 0.03 X10*3/uL (0.00-0.03); Imm Gran Pct Auto 0.3 % (0.0-0.4); Lymphocytes Absolute Auto 2.1 X10*3/uL (1.2-4.9); Lymphocytes Percent Auto 22.3 % (20-40); Mean Corpuscular HGB Conc 34.2 g/dl (31.0-36.0); Mean Corpuscular Hemoglobin 30.7 pg (27.0-33.0); Mean Corpuscular Volume 89.8 fL (80.0-98.0); Mean Platelet Volume 13.2 fL (9.4-12.4); Monocytes Absolute Auto 0.6 X10*3/uL (0.1-1.2); Monocytes Percent Auto 6.5 % (2-11); Neutrophils Absolute Auto 6.1 x10*3/uL (2.0-8.3); Neutrophils Percent Auto 64.7 % (45-73); Platelet Count 173 X10*3/uL (160-400); Red Blood Count 5.27 X10*6/uL (4.60-5.80); Red Cell Distribution Width 12.9 % (11.0-16.0); White Blood Count 9.5 X10*3/uL (4.8-10.8)
[2022-06-07 11:20] LABS: Creatinine Urine 62.62 mg/dL; Microalbumin Urine < 5.0 mg/L
[2022-06-07 11:34] LABS: Alanine Aminotransferase 30 U/L (0-40); Albumin Level 4.1 g/dL (3.5-5.0); Alkaline Phosphatase 86 U/L (39-117); Anion Gap 14 (12-20); Aspartate Amino Transferase 24 U/L (5-37); Bilirubin Total 0.9 mg/dL (0.0-1.0); Blood Urea Nitrogen 24 mg/dL (9-16); Calcium 8.7 mg/dL (8.4-10.2); Carbon Dioxide 27 mmol/L (22-29); Chloride 106 mmol/L (96-108); Cholesterol 101 mg/dL; Estimated Glomerular Filt Rate 55; Glucose Fasting 77 mg/dL (60-99); HDL Cholesterol 31 mg/dL; Iron 160 mcg/dL (45-160); LDL Cholesterol Calculated 58 mg/dl; Percent Iron Saturation 64 % (15-50); Potassium 4.9 mmol/L (3.3-5.1); Sodium 142 mmol/L (135-145); Total Iron Binding Capacity 249 mcg/dL (228-428); Total Protein 6.6 g/dL (6.5-8.0); Triglycerides 61 mg/dL; Unsaturated Iron Binding 89 ug/dL
[2022-06-07 12:02] LABS: Ferritin 757 ng/mL (20-250); TSH reflex Free T4 1.33 uIU/mL (0.32-4.0)
[2022-06-07 12:38] LABS: Prostate Specific Antigen Scr < 0.10 ng/mL (<0.05-4.0)
== END 2022-06-07 09:28 | disposition home or self-care (01) ==
LOC: HO.LAB 09:27
PROVIDERS: PCP Family Medicine; Visit Provider Internal Medicine
DX: Z00.00 Encounter for general adult medical examination without abnormal findings (principal); E83.19 Other disorders of iron metabolism; I10 Essential (primary) hypertension; Z12.5 Encounter for screening for malignant neoplasm of prostate
CPT/HCPCS: 36415; 80053; 80061; 81001; 82043; 82728; 83540; 84153; 84443; 85025

== ENCOUNTER 2022-06-18 15:26 | Outpatient (REF) | payer MEDICARE, SELFPAY ==
[2022-06-18 19:47] LABS: Appearance Urine Clear; Color Urine Yellow; Glucose Urine UA Negative (Negative); Leukocyte Esterase Urine Small (1+) (Negative); Nitrite Urine Negative (Negative); Specific Gravity - Urine 1.015 (1.005-1.025); UMIC TRIGGER UA YES; Urine Blood Negative (Negative); Urine Ketones Negative (Negative); Urine Protein Negative (Neg-Trace)
[2022-06-18 20:03] LABS: Bacteria Urine 4+ (None Seen); Hyaline Casts Urine 0-2 /LPF (0-2); RBC Urine 0-2 /HPF (0-2); Squamous Epithelial Cell Urine 0-2 /HPF (0-2)
== END 2022-06-18 15:27 | disposition home or self-care (01) ==
LOC: HO.LAB 15:26
PROVIDERS: PCP Family Medicine; Referring Provider Family Medicine; Visit Provider Internal Medicine
DX: R79.89 Other specified abnormal findings of blood chemistry (principal); E83.119 Hemochromatosis, unspecified; K82.4 Cholesterolosis of gallbladder
CPT/HCPCS: 81001; 99212

== ENCOUNTER 2022-07-16 12:38 | Outpatient (REF) | payer MEDICARE, SELFPAY ==
[2022-07-28 13:54] LABS: Phosphatidylethanol 16:0-18:1 None Detected
== END 2022-07-16 12:39 | disposition home or self-care (01) ==
LOC: HO.LAB 12:38
PROVIDERS: PCP Family Medicine; Visit Provider Internal Medicine
DX: E83.19 Other disorders of iron metabolism (principal); R79.89 Other specified abnormal findings of blood chemistry; K82.4 Cholesterolosis of gallbladder
CPT/HCPCS: 36415; 80321; 81256; 99212

== ENCOUNTER 2022-08-06 12:42 | Outpatient (REF) | payer MEDICARE, SELFPAY ==
[2022-08-06 17:31] LABS: Prostate Specific Antigen < 0.10 ng/mL (<0.05-4.0)
== END 2022-08-06 12:43 | disposition home or self-care (01) ==
LOC: HO.WFDLDS 12:42
PROVIDERS: Visit Provider Nurse Practitioner Family
DX: Z12.5 Encounter for screening for malignant neoplasm of prostate (principal); C61 Malignant neoplasm of prostate
CPT/HCPCS: 36415; 84153

== ENCOUNTER → 2022-08-11 10:28 | Outpatient (BNVA) | payer MEDICARE, SELFPAY | PROVIDERS: PCP Family Medicine; Visit Provider Urology | DX: C61 Malignant neoplasm of prostate (principal) | CPT/HCPCS: 99212 ==

== ENCOUNTER → 2022-08-20 14:35 | Outpatient (BNVA) | payer MEDICARE, SELFPAY | PROVIDERS: PCP Family Medicine; Visit Provider Internal Medicine | DX: Z12.11 Encounter for screening for malignant neoplasm of colon (principal); K82.4 Cholesterolosis of gallbladder; R79.89 Other specified abnormal findings of blood chemistry; E83.19 Other disorders of iron metabolism | CPT/HCPCS: Q3014 ==

== ENCOUNTER 2022-09-02 10:30 | Outpatient (REF) | payer MEDICARE, SELFPAY ==
[2022-09-02 14:31] LABS: MANUAL DIFF FLAG NO
[2022-09-02 14:44] LABS: Basophils Absolute Auto 0.2 X10*3/uL (0.0-0.2); Basophils Percent Auto 1.8 % (0-2); Eosinophils Absolute Auto 0.5 X10*3/uL (0.0-0.4); Eosinophils Percent Auto 5.8 % (0-4); Hemoglobin 15.5 g/dl (14.0-18.0); Imm Gran Abs Auto 0.09 X10*3/uL (0.00-0.03); Lymphocytes Absolute Auto 2.5 X10*3/uL (1.2-4.9); Lymphocytes Percent Auto 27.4 % (20-40); Mean Corpuscular HGB Conc 33.7 g/dl (31.0-36.0); Mean Corpuscular Hemoglobin 30.1 pg (27.0-33.0); Mean Corpuscular Volume 89.3 fL (80.0-98.0); Mean Platelet Volume 13.9 fL (9.4-12.4); Monocytes Absolute Auto 0.7 X10*3/uL (0.1-1.2); Monocytes Percent Auto 7.2 % (2-11); Neutrophils Absolute Auto 5.3 x10*3/uL (2.0-8.3); Neutrophils Percent Auto 56.8 % (45-73); Platelet Count 151 X10*3/uL (160-400); Red Blood Count 5.15 X10*6/uL (4.60-5.80); Red Cell Distribution Width 13.1 % (11.0-16.0); White Blood Count 9.3 X10*3/uL (4.8-10.8)
[2022-09-02 15:04] LABS: Alanine Aminotransferase 30 U/L (0-40); Albumin Level 3.7 g/dL (3.5-5.0); Alkaline Phosphatase 91 U/L (39-117); Anion Gap 10 (12-20); Aspartate Amino Transferase 23 U/L (5-37); Bilirubin Total 0.7 mg/dL (0.0-1.0); Blood Urea Nitrogen 22 mg/dL (9-16); Calcium 8.5 mg/dL (8.4-10.2); Carbon Dioxide 25 mmol/L (22-29); Chloride 106 mmol/L (96-108); Cholesterol 93 mg/dL; Estimated Glomerular Filt Rate > 60; Glucose Fasting 88 mg/dL (60-99); HDL Cholesterol 26 mg/dL; LDL Cholesterol Calculated 56 mg/dl; Potassium 4.4 mmol/L (3.3-5.1); Sodium 137 mmol/L (135-145); Total Protein 6.1 g/dL (6.5-8.0); Triglycerides 57 mg/dL
[2022-09-02 15:27] LABS: Prostate Specific Antigen Scr < 0.10 ng/mL (<0.05-4.0); TSH reflex Free T4 1.44 uIU/mL (0.32-4.0)
== END 2022-09-02 10:31 | disposition home or self-care (01) ==
LOC: HO.WFDLDS 10:30
PROVIDERS: Visit Provider Family Medicine
DX: Z00.00 Encounter for general adult medical examination without abnormal findings (principal); Z12.5 Encounter for screening for malignant neoplasm of prostate
CPT/HCPCS: 36415; 80053; 80061; 84153; 84443; 85025

== ENCOUNTER 2022-10-19 11:01 | Outpatient (AMB) | payer MEDICARE, SELFPAY ==
[2022-10-19 10:56] VITALS: BP 142/60; PULSE 49; RESP 13; TEMP 37.2; O2SAT 98; BMI 28.3
--- NOTE | 2022-10-19 10:56 | MHC.PC.OV ---
Vital Signs 10/19/22 10:56 Height 5 ft 4 in Weight 165 lb BMI 28.3 BP 142/60 H Blood Pressure Location Rt brachial Position Sitting Respiration 13 Pulse 49 L Pulse Source Pulse Oximeter Temp 98.9 F Temp Source Oral Pulse Oximetry (%) 98 Oxygen Delivery Method Room Air Intake Visit Reasons: f/u hypertension and elevated liver enzymes Intake Note: Patient is here to follow up for hypertension and liver enzymes, patient's last labs were completed on 09/02/2022. Patient reports he is not smoking anymore for about 1 month. 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 Blood pressure today is 142/60. He is on hydrochlorothiazide 12.5mg, losartan 100mg and metoprolol 12.5mg daily. He states he is not certain if he took his medications today. He reports he had been unable to get a MRI as they did not have the equipment to do so. Pt had an abnormal chest x-ray. He reports he had quit smoking [facility] Medical History Heart attack High cholesterol Hypertension CT (myocardial infarction) PVD (peripheral vascular disease) Surgical History History of carotid angioplasty History of esophagogastroduodenoscopy (EGD) History of heart artery stent History of prostate surgery Hx of colonoscopy Family History Maternal Grandfather Colon cancer Social History (Updated 10/19/22 @ 11:07 by Matilde Dao) Housing: House Alcohol intake: current Alcohol intake frequency: a few times a month Patient Tobacco Use Status: Former Tobacco user Quit Date: 1 month smoke free Cigarettes Per Day: 5 Years Smoked: 50 years e-Cigarette/Vaping Use: Never Used Second Hand Smoke Exposure: No service: No Current occupational status: retired Current occupational exposures/hazards: No Cognitive needs: No Hearing needs: No Vision needs: No Questionnaire Thrive Questionnaire Date Thrive assessed: 04/15/21 VITA-7 AMB Questionnaire VITA-7 Date VITA - 7 assessed: 10/22/21 Source: Developed by Drs. Victoriano Baxter, Odessa Moscoso, Jered Schneider and colleagues, with an educational edwina from [employer]. Review of Systems Const Denies chills, Denies fatigue, Denies fever(s), Denies headache(s) and Denies weakness ENT Denies dizziness and Denies headache(s) Card Denies chest pain, Denies lightheadedness, Denies dyspnea and Denies other (Palpitations) Resp Denies cough, Denies dyspnea, Denies wheezing and Denies other ( shortness of breath) Musc Denies numbness and Denies tingling Neuro Denies dizziness, Denies headache(s), Denies numbness, Denies tingling, Denies paresthesias and Denies weakness Psych Denies anxiety and Denies depression Endo Denies fatigue Aller/Immun Denies wheezing Physical exam (Primary Care) Vital Signs: Last Vital Signs Temp 98.9 F 10/19/22 10:56 Pulse 49 L 10/19/22 10:56 Resp 13 10/19/22 10:56 BP 142/60 H 10/19/22 10:56 Pulse Ox 98 10/19/22 10:56 Oxygen Delivery Method Room Air 10/19/22 10:56 BMI result Body Mass Index 28.3 Tobacco/Smoking Status: Tobacco use Status Tobacco use date assessed 09/29/22 10/19/22 10:58 Patient Tobacco Use Status Former Tobacco user 10/19/22 11:07 e-Cigarette/Vaping Use Never Used 10/19/22 11:07 Thrive Assessment: Date of Thrive Assessment Date Thrive assessed 04/15/21 10/19/22 10:58 Const General: no acute distress and well developed Nutritional Appearance: well nourished Orientation/consciousness: patient oriented x3 HENMT Head: Yes normocephalic and Yes atraumatic Eyes General: appearance normal, both eyes and all related structures Pupils: Equal, round and reactive pupils present EOM: EOMs intact bilaterally Resp Effort & Inspection: normal respiratory effort Auscultation: clear to auscultation bilaterally Cardio Rate: regular rate Rhythm: regular rhythm Heart sounds: S1 normal heart sound present, S2 normal heart sound present, no gallops, no murmurs and no rubs Neuro General: patient oriented x3 and gait normal Cranial nerves: Yes Equal, round and reactive pupils present Psych Affect: normal affect Assessment and Plan Assessment & Plan (1) Essential hypertension: Code(s): I10 - Essential (primary) hypertension Plan: Blood pressure is too high today; goal is less than 130/90 He is uncertain he took his medication today and I suspect he has for gotten it. He will take it today when he gets home if he has not. He has a blood pressure cuff at home and will check his blood pressures -if SBP consistently above 130, he will let me know and I will adjust his medication. He has a follow-up appointment with cardiology on the (2) Abnormal chest x-ray: Code(s): R93.89 - Abnormal findings on diagnostic imaging of other specified body structures Plan: He had an abnormal chest x-ray and has only recently quit smoking. Likely nipple artifact so chest x-ray with nipple markers is ordered. I have asked him to get this done again. He says he will get this done today. (3) Elevated LFTs: Code(s): R79.89 - Other specified abnormal findings of blood chemistry Plan: He had had an MRI ordered and would be following up with Dr. He. He says the MRI was canceled because they did not have the required equipment and would need to do this in [place] which he does not want to do. Asked him to follow-up with Dr. He regarding imaging. (4) Stented coronary artery: Code(s): Z95.5 - Presence of coronary angioplasty implant and graft Plan: Stable As above, has follow-up with Cardiology on the (5) Smoker: Code(s): F17.200 - Nicotine dependence, unspecified, uncomplicated Plan: Recently quit smoking after CT and stent Encouraged ongoing abstinence Has outstanding chest x-ray as above Coding Level of Care Code Est Pt Level 4 (39096) Diagnoses Essential hypertension I10 Abnormal chest x-ray R93.89 Elevated LFTs R79.89 Stented coronary artery Z95.5 Smoker F17.200
== END 2022-10-19 11:43 | disposition home or self-care (01) ==
PROVIDERS: PCP Family Medicine; Visit Provider Family Medicine
DX: I10 Essential (primary) hypertension (principal); R93.89 Abnormal findings on diagnostic imaging of other specified body structures; Z95.5 Presence of coronary angioplasty implant and graft; F17.200 Nicotine dependence, unspecified, uncomplicated; R79.89 Other specified abnormal findings of blood chemistry
CPT/HCPCS: 99214

== ENCOUNTER 2022-10-29 10:19 | Outpatient (REF) | payer MEDICARE, SELFPAY ==
--- NOTE | ~2022-10-29 | US_ITS ---
EXAMINATION: US ABDOMEN LIMITED CLINICAL INFORMATION: History of gallbladder polyps. COMPARISON: Ultrasound abdomen limited 03/03/2022. TECHNIQUE: Real-time imaging of the right upper quadrant abdominal viscera. FINDINGS: PANCREAS: Obscured by bowel gas. LIVER: Normal. The liver is normal in size. The liver contour is normal. Parenchymal echogenicity is normal. No focal hepatic lesion. There is no intrahepatic biliary duct dilatation seen. GALLBLADDER: The gallbladder is physiologically distended. Multiple mobile gallstones are present. No evidence of gallbladder wall thickening or pericholecystic fluid. COMMON BILE DUCT: Normal in caliber measuring 0.5 cm in diameter. RIGHT KIDNEY: Normal. No hydronephrosis. No renal calculi or focal parenchymal lesions. The kidney measures 9.1 cm in maximum dimension. FREE FLUID: None. US/US abdomen limited IMPRESSION: Cholelithiasis without evidence of cholecystitis.
--- NOTE | ~2022-10-29 | XR_ITS ---
EXAMINATION: XR CHEST 2 VIEWS CLINICAL INFORMATION: Cough. COMPARISON: None. TECHNIQUE: Frontal and lateral views of the chest were obtained. Nipple markers are applied. FINDINGS: The heart, great vessels, pulmonary vasculature and mediastinum are normal. The lungs show no focal infiltrate, effusion or pneumothorax. There is no mass, nodule or lymphadenopathy noted. There is no acute osseous abnormality. XR/XR chest 2V IMPRESSION: No active cardiopulmonary disease.
== END 2022-10-29 10:20 | disposition home or self-care (01) ==
LOC: HO.US 10:19
PROVIDERS: PCP Family Medicine; Visit Provider Surgery
DX: K82.4 Cholesterolosis of gallbladder (principal); R93.89 Abnormal findings on diagnostic imaging of other specified body structures
CPT/HCPCS: 71046; 76705

== ENCOUNTER 2022-11-01 08:54 | Outpatient (AMB) | payer MEDICARE, SELFPAY ==
[2022-11-01 08:59] VITALS: BP 118/70; BMI 28.0
--- NOTE | 2022-11-01 08:59 | A.OFFVIS_ITS ---
Intake Vital Signs 11/01/22 08:59 Height 5 ft 4 in Weight 163 lb 2.273 oz BMI 28.0 BP 118/70 Blood Pressure Location Lt brachial Position Sitting Intake Visit Reasons: [facility] Follow up Intake Note: [facility] f/u Allergies No Known Allergies Allergy (Verified 11/01/22 09:04) Medication List - Last Reconciled 11/01/22 by Kae Medel NP-C aspirin (Adult Low Dose Aspirin) 81 mg PO DAILY atorvastatin 80 mg PO DAILY 90 days clopidogrel (Plavix) 75 mg PO DAILY hydrochlorothiazide 12.5 mg PO DAILY 90 days losartan 100 mg PO DAILY 3 months metoprolol tartrate 12.5 mg PO Q12H HPI [facility] Follow up HPI Details Ilya is a 67-year-old male with past medical history of hypertension, hyperlipidemia, smoking, peripheral vascular disease, CAD, RCA stent who recently had NSTEMI with GALI placed to OM 1. Today he reports he has been feeling well since his hospital discharge. He no longer has heartburn which she described as a burning in his mid chest. He tells me he had been getting episodes on and off for a few days prior to his hospital admission. He finally called EMS on the morning of admit because the chest burning kept him up all night. No recurrent concerning symptoms. No exertional chest discomfort. No shortness of breath, palpitations, PND, orthopnea or edema. No bleeding issues with aspirin and Plavix. Taking all meds as directed however he has been taking metoprolol twice daily. He admits to being mostly sedentary and is interested in cardiac rehab. [facility] Medical History Heart attack High cholesterol Hypertension [place] (myocardial infarction) PVD (peripheral vascular disease) Surgical History History of carotid angioplasty History of esophagogastroduodenoscopy (EGD) History of heart artery stent History of prostate surgery Hx of colonoscopy S/P cardiac catheterization Family History Maternal Grandfather Colon cancer Social History Housing: House Alcohol intake: current Alcohol intake frequency: a few times a month Patient Tobacco Use Status: Former Tobacco user Quit Date: 1 month smoke free Cigarettes Per Day: 5 Years Smoked: 50 years e-Cigarette/Vaping Use: Never Used Second Hand Smoke Exposure: No service: No Current occupational status: retired Current occupational exposures/hazards: No Cognitive needs: No Hearing needs: No Vision needs: No Review of Systems Const Details: Fatigue All systems reviewed & are unremarkable except as noted in HPI and below ENT Reports dizziness Card Denies chest pain, Denies chest pain at rest, Denies chest pain with activity, Denies rapid heart rate, Denies pedal edema, Denies edema, Denies leg edema, Denies lightheadedness, Denies palpitations, Denies dyspnea and Denies orthopnea Resp Denies cough and Denies dyspnea GI Denies hematochezia and Denies change in stool character Musc Denies abnormal gait, Reports limited range of motion, Reports muscle cramps, Denies muscle weakness, Denies numbness, Denies radiating pain into limb, Denies stiffness and Denies tingling Neuro Denies abnormal gait, Reports dizziness, Denies numbness and Denies tingling Endo Denies palpitations Physical Exam Vital Signs: Last Vital Signs BP 118/70 11/01/22 08:59 BMI result Body Mass Index 28.0 Const General: cooperative, comfortable and no acute distress Orientation/consciousness: patient oriented x3 Neck Neck: Yes normal visual inspection Resp Effort & Inspection: normal respiratory effort Auscultation: clear to auscultation bilaterally, no crackles, no rales, no rhonchi and no wheezes Cardio Jugular venous distension: no JVD Rate: regular rate Rhythm: regular rhythm Heart sounds: S1 normal heart sound present, S2 normal heart sound present, no murmurs and no rubs GI Inspection: Yes normal to inspection Neuro General: patient oriented x3 Extrem General: Yes normal to inspection Psych Appearance: grossly normal Mental Status: mental status grossly normal Speech and movement: Normal speech and movement present Office Procedures EKG Details: Today, read by me, marked sinus bradycardia, inferior infarct, age undetermined, ST and T-wave abnormality inferior lateral leads, QTC 408 milliseconds, rate 44 [id number], Complete Assessment & Plan Assessment & Plan (1) NSTEMI (non-ST elevated myocardial infarction): Code(s): I21.4 - Non-ST elevation (NSTEMI) myocardial infarction Plan: [place] [facility] [place] for mid chest burning which he thought was heartburn occurring intermittently for a few days prior to admission. He ruled in for NSTEMI and underwent urgent cardiac catheterization showing severe stenosis of OM1, GALI was placed. He tells me he has not had recurrent heartburn sensation since that time. An echocardiogram was [place] performed [place] [facility] His EKG done today shows marked sinus bradycardia with T-wave inversions inferiorly and V4 through V6. Compared to [facility] [place] which shows upright T-waves V4 through V6. He currently denies any chest discomfort and tells me he has been doing well. He has been taking metoprolol 12.5 mg b.i.d.. According to [facility] notes he should be on 12.5 mg once daily. Will have him make this correction. His heart rate is slow which he denies any dizziness, presyncope, syncope, falls. He reports good energy levels. He is interested in cardiac rehab. Will order echocardiogram to assess for wall motion abnormalities and EF. Continue aspirin indefinitely. Continue Plavix uninterrupted for at least 1 year. Continue high-dose atorvastatin, losartan, hydrochlorothiazide and will have him reduce his metoprolol dose. Cardiology follow-up in 3 months, sooner if needed. Plan to call him with echo results (2) S/P cardiac catheterization: Comment: 09/23/22 severe mid OM1 stenosis, PCI to OM1 Code(s): Z98.890 - Other specified postprocedural states Plan: As above (3) Essential hypertension: Code(s): I10 - Essential (primary) hypertension Plan: Well controlled at present, normal range at 118/70 (4) CAD (coronary artery disease): Code(s): I25.10 - Atherosclerotic heart disease of [place] coronary artery without angina pectoris (5) Stented coronary artery: Code(s): Z95.5 - Presence of coronary angioplasty implant and graft (6) Hospital discharge follow-up: Code(s): Z09 - Encounter for follow-up examination after completed treatment for conditions other than malignant neoplasm (7) Abnormal EKG: Code(s): R94.31 - Abnormal electrocardiogram [ECG] [EKG] Plan: Inferior lateral T-wave inversions. Orders: Orders CA echo transthoracic complete Today I21.4 - Non-ST elevation (NSTEMI) myocardial infarction, R94.31 - Abnormal electrocardiogram [ECG] [EKG] Coding Level of Care Code Est Pt Level 4 (25210) Diagnoses NSTEMI (non-ST elevated myocardial infarction) I21.4 S/P cardiac catheterization Z98.890 Essential hypertension I10 CAD (coronary artery disease) I25.10 Stented coronary artery Z95.5 Hospital discharge follow-up Z09 Abnormal EKG R94.31 CPT Codes EKG - CPT: [id number], Complete ([id number]) Time Spent (min) 28 Comment Chart review, documentation, interview assessment
== END 2022-11-01 09:30 | disposition home or self-care (01) ==
PROVIDERS: PCP Family Medicine; Visit Provider Nurse Practitioner Family
DX: I21.4 Non-ST elevation (NSTEMI) myocardial infarction (principal); Z98.890 Other specified postprocedural states; I10 Essential (primary) hypertension; I25.10 Atherosclerotic heart disease of native coronary artery without angina pectoris; Z95.5 Presence of coronary angioplasty implant and graft; Z09 Encounter for follow-up examination after completed treatment for conditions other than malignant neoplasm; R94.31 Abnormal electrocardiogram [ECG] [EKG]
CPT/HCPCS: 93010; 99214

== ENCOUNTER → 2022-11-01 08:54 | Outpatient (BNVA) | payer MEDICARE, SELFPAY | PROVIDERS: PCP Family Medicine; Visit Provider Nurse Practitioner Family | DX: I21.4 Non-ST elevation (NSTEMI) myocardial infarction (principal); I10 Essential (primary) hypertension; I25.10 Atherosclerotic heart disease of native coronary artery without angina pectoris; R94.31 Abnormal electrocardiogram [ECG] [EKG]; Z95.5 Presence of coronary angioplasty implant and graft; Z98.890 Other specified postprocedural states | CPT/HCPCS: 93005; 99212 ==

== ENCOUNTER → 2022-11-09 13:10 | Outpatient (REF) | payer MEDICARE, SELFPAY ==
--- NOTE | 2022-11-09 13:13 | CA_ITS ---
Transthoracic Echocardiogram Patient (Last, First, Middle): Ilya Corbett D Gender: Male Date of : 1955 Age: 67 Procedure Date: 11/09/2022 Procedure Type: Transthoracic Echocardiogram Location: OP Height: 162.56 cm Weight: 74.84 kg BSA: 1.80 m2 Heart Rate: bpm BP: 118 / 60 mmHg Mailroom Courier: NATY Referring MD: Kea Medel PRODUCT CRAFTSMANMeagan Symptoms: I21.4 - Non-ST elevation (NSTEMI) myocardial infarction Study Quality: Adequate ECG Rhythm: Sinus Conclusions: - The left ventricular systolic function is normal. The calculated ejection fraction is 65% by biplane method. - The basal inferior and basal inferolateral segments are akinetic. - There is mild calcification of the aortic valve. Findings Left Ventricle Normal left ventricular cavity size. The left ventricular systolic function is normal. The calculated ejection fraction is 65% by biplane method. There is no evidence of regional wall motion abnormalities. There is mild septal asymmetric hypertrophy. LV peak GLS -20.8%, Wall Motion Rest Echo Findings The basal inferior and basal inferolateral segments are akinetic. Right Ventricle Normal right ventricular cavity size and systolic function. Atria Both atria are normal in size. Aortic Valve There is a normal trileaflet aortic valve. There is mild calcification of the aortic valve. There is no aortic valve stenosis. There is no aortic valve regurgitation. Mitral Valve The mitral valve appears normal. There is trace mitral valve regurgitation. There is no mitral valve stenosis. Pulmonic Valve The pulmonic valve is likely normal. Tricuspid Valve There is no tricuspid valve regurgitation. Tricuspid regurgitation envelope is inadequate for calculation of right ventricular systolic pressure. Great Vessels The asc aorta is normal in size. Small plaque is seen in the sino tubular ridge. Venous The inferior vena cava is normal in size and collapses greater than 50% with inspiration. Pericardium/Pleural There is no evidence of pericardial effusion. Prior Study Comparison No significant change compared to prior study dated: 07/29/2021. Measurements 2D Linear Measurements IVSd: 1.16 0.6-0.9/0.6-1.0 cm LVIDd: 4.60 3.9-5.3/4.2-5.9 cm LVIDd Index: 2.56 2.4-3.2/2.2-3.1 cm/m2 LVIDs: 3.17 2.0-3.6 cm LVPWd: 1.00 0.7-1.1 cm LA Diam: 3.20 2.7-3.8/3.0-4.0 cm LAIDs Index: 1.78 1.5-2.3 cm/m2 LV Mass: 220.04 67-162/88-224 g LV Mass Index: 122.25 43-95/49-115 g/m2 LVOT Diam: 2.00 3.0+(-)1.3 cm 2D Systolic Function EF 4C: 61.80 >55% EF 2C: 66.40 >55% EF BiP: 65.30 >55% Mitral Valve MV Pk E: 1.00 MV PK A: 0.77 MV Decel Time: 245.00 E/A: 1.30 E'Lateral: 7.83 E'Medial: 5.66 E/E' Med: 17.70 E/E' Lat: 12.80 PHT: 72.00 MVA PHT: 3.06 Decel [place]: 4.10 Aortic Valve AoV Pk [place]: 1.30 AoV Mn [place]rell: 0.91 AoV VTI: 0.33 AoV Pk Grad: 7.00 Aov Mn Grad: 4.00 QUE Cont.VTI: 2.56 LVOT LVOT Pk Derrell: 1.26 LVOT Mn Derrell: 0.76 LVOT VTI: 0.27 LVOT Pk Grad: 6.00 LVOT Mn Grad: 3.00 LVOT Diam: 2.00 LVOT Area: 3.14 Diastolic Function MV Pk E: 1.00 MV Pk A: 0.77 E/A: 1.30 E'Medial: 5.66 E/E' Med: 17.70 E' Laterial: 7.83 E/E' Lat: 12.80 Right Ventricle TAPSE (mm): 2.22 TVS' Derrell: 10.90 Tricuspid Valve RA Press: 3.00 Great Vessels Aorta Sinus of Valsalva: 3.55 2.0-3.[address] [place]: 2.06 1.7-3.4 cm Ao Asc: 3.30 2.1-3.4 cm Updated in Other Vendor System with Status of Final Toro Solo MD electronically signed on 11/09/2022 3:13:19 PM with status of Final
== END ==
LOC: HO.CARD 13:10
PROVIDERS: PCP Family Medicine; Visit Provider Nurse Practitioner Family
DX: I21.4 Non-ST elevation (NSTEMI) myocardial infarction (principal); R94.31 Abnormal electrocardiogram [ECG] [EKG]
CPT/HCPCS: 93306; 93356

== ENCOUNTER → 2022-11-09 13:13 | Outpatient (BNV) | payer MEDICARE, SELFPAY | PROVIDERS: PCP Family Medicine; Visit Provider Internal Medicine | DX: I35.8 Other nonrheumatic aortic valve disorders (principal) | CPT/HCPCS: 93306 ==

== ENCOUNTER 2022-11-18 11:13 | Outpatient (AMB) | payer MEDICARE, SELFPAY ==
[2022-11-18 11:20] VITALS: BP 146/66; PULSE 56; BMI 27.8
--- NOTE | 2022-11-18 11:20 | A.OFFVIS_ITS ---
Intake Vital Signs 11/18/22 11:20 Height 5 ft 4 in Weight 162 lb BMI 27.8 BP 146/66 H Blood Pressure Location Rt brachial Position Sitting Pulse 56 Intake Visit Reasons: Cholesterolosis of gallbladder, 6 mo follow up Intake Note: Patient here for 6m f/u gallbladder. Abd US on 10-29-22. 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 He has time diet base having regular bowel habits. Occasionally has heartburn symptoms. Incidentally, patient just recent underwent cardiac stent placement. Ultrasound demonstrates no evidence of polyp and only cholelithiasis. PFS Medical History Heart attack High cholesterol Hypertension [place] (myocardial infarction) PVD (peripheral vascular disease) Surgical History History of carotid angioplasty History of esophagogastroduodenoscopy (EGD) History of heart artery stent History of prostate surgery Hx of colonoscopy S/P cardiac catheterization Family History Maternal Grandfather Colon cancer Social History Housing: House Alcohol intake: current Alcohol intake frequency: a few times a month Patient Tobacco Use Status: Former Tobacco user Quit Date: 1 month smoke free Cigarettes Per Day: 5 Years Smoked: 50 years e-Cigarette/Vaping Use: Never Used Second Hand Smoke Exposure: No service: No Current occupational status: retired Current occupational exposures/hazards: No Cognitive needs: No Hearing needs: No Vision needs: No Physical Exam Vital Signs: Last Vital Signs Pulse 56 11/18/22 11:20 BP 146/66 H 11/18/22 11:20 BMI result Body Mass Index 27.8 GI Other: Abdomen soft, benign Assessment & Plan Assessment & Plan (1) Cholelithiasis: Code(s): K80.20 - Calculus of gallbladder without cholecystitis without obstruction Plan Current plan is continue current conservative therapy. Patient has no biliary symptoms or complaints. He will follow-up p.r.n.. Coding Level of Care Code Est Pt Level 3 (62125) Diagnoses Cholelithiasis K80.20
== END 2022-11-18 11:25 | disposition home or self-care (01) ==
PROVIDERS: PCP Family Medicine; Visit Provider Surgery
DX: K80.20 Calculus of gallbladder without cholecystitis without obstruction (principal)
CPT/HCPCS: 99213

== ENCOUNTER → 2022-11-18 11:13 | Outpatient (BNVA) | payer MEDICARE, SELFPAY | PROVIDERS: PCP Family Medicine; Visit Provider Surgery | DX: K80.20 Calculus of gallbladder without cholecystitis without obstruction (principal) | CPT/HCPCS: 99212 ==

== ENCOUNTER 2022-11-29 09:15 | Outpatient (REF) | payer MEDICARE, SELFPAY ==
[2022-11-29 11:44] LABS: Appearance Urine Clear; Color Urine Yellow; Glucose Urine UA Negative (Negative); Leukocyte Esterase Urine Trace (Negative); Nitrite Urine Negative (Negative); PH 5.5 (5.0-9.0); UMIC TRIGGER UA YES; Urine Blood Negative (Negative); Urine Ketones Negative (Negative); Urine Protein Negative (Neg-Trace)
[2022-11-29 11:46] LABS: Bacteria Urine 2+ (None Seen); Hyaline Casts Urine 0-2 /LPF (0-2); RBC Urine 0-2 /HPF (0-2); Squamous Epithelial Cell Urine 0-2 /HPF (0-2); WBC Urine 0-5 /HPF (0-5)
[2022-11-29 12:07] LABS: Anion Gap 11 (12-20); Blood Urea Nitrogen 25 mg/dL (9-16); Carbon Dioxide 27 mmol/L (22-29); Chloride 105 mmol/L (96-108); Estimated Glomerular Filt Rate > 60; Glucose Random 98 mg/dL (60-115); Potassium 4.5 mmol/L (3.3-5.1); Sodium 138 mmol/L (135-145)
[2022-11-29 13:09] LABS: Creatinine Urine 47.34 mg/dL; Microalbumin Urine < 5.0 mg/L
[2022-11-29 13:23] LABS: Prostate Specific Antigen < 0.10 ng/mL (<0.05-4.0)
== END 2022-11-29 09:16 | disposition home or self-care (01) ==
LOC: HO.WFDLDS 09:15
PROVIDERS: Family Medicine; Visit Provider Urology
DX: Z00.00 Encounter for general adult medical examination without abnormal findings (principal); Z12.5 Encounter for screening for malignant neoplasm of prostate; I25.10 Atherosclerotic heart disease of native coronary artery without angina pectoris; I10 Essential (primary) hypertension; C61 Malignant neoplasm of prostate
CPT/HCPCS: 36415; 80048; 81001; 82043; 84153

== ENCOUNTER 2022-12-14 08:59 | Outpatient (AMB) | payer MEDICARE, SELFPAY ==
[2022-11-30 13:14] VITALS: BP 120/58; BP 132/56; BMI 27.8
--- NOTE | 2022-12-14 09:01 | MHC.OFFVIS ---
Intake Intake Visit Reasons: 4m/PSA(set) Intake Note: Patient is present for Telephone PSA Urology Med: None Antibiotic Allergy: None Blood Thinner: Plavix, Aspirin [facility] Allergies No Known Allergies Allergy (Verified 12/14/22 09:05) HPI HPI Comments History of Present Illness Details Ilya is a pleasant male. He is a patient of Dr. Swift. He is seen with the following urologic conditions - prostate cancer Telemedicine Evaluation 15 min Consultation Doximity Aidan Video attempted PSA continues to remain well controlled 1 liner per day - sometimes 2 Does have leakage with activity Continue to follow acute 4 months out to 2 years Prostate cancer [place] 3 + 3 initial management RALP pT3aN0 11/22 Prostate cancer initial diagnosis and procedure by Dr. Shahid [facility] - 04/25 <0.1, 10/23 <0.1, 06/24 <0.1, 11/24 <0.1 No evidence of erections Baseline did use PDE5 Follow in 4 months with PSA then can move to 6m [facility] Medical History Heart attack High cholesterol Hypertension [place] (myocardial infarction) PVD (peripheral vascular disease) Surgical History History of carotid angioplasty History of esophagogastroduodenoscopy (EGD) History of heart artery stent History of prostate surgery Hx of colonoscopy S/P cardiac catheterization Family History Maternal Grandfather Colon cancer Social History Housing: House Alcohol intake: current Alcohol intake frequency: a few times a month Patient Tobacco Use Status: Current everyday Tobacco user Tobacco use type: Cigarette Cigarettes Per Day: 5 Years Smoked: 50 e-Cigarette/Vaping Use: Never Used Second Hand Smoke Exposure: No service: No Current occupational status: retired Current occupational exposures/hazards: No Cognitive needs: No Hearing needs: No Vision needs: No Review of Systems Const All systems reviewed & are unremarkable except as noted in HPI and below Reports no additional complaints Resp Reports no additional complaints GI Reports no additional complaints Reports as per HPI Musc Reports no additional complaints Physical Exam Telemedicine evaluation Appropriate responses Regular breathing rate and rhythm HEENT Head: Yes normal to inspection Ears: hearing grossly normal bilaterally Eyes General: appearance normal, both eyes and all related structures Neck Neck: Yes normal visual inspection Chest Chest palpation & inspection: normal inspection of the chest Resp Effort & Inspection: normal respiratory effort and able to speak in complete sentences Assessment & Plan Assessment & Plan (1) Prostate cancer: Comment: 11/22 [place] 3 + 3 RALP T3aN0 [facility] Code(s): C61 - Malignant neoplasm of prostate Plan PSA 4m Orders: Orders Prostate Specific Antigen 4 Months C61 - Malignant neoplasm of prostate Patient Instructions: Imaging studies, laboratory and physical exam results were discussed and reviewed in detail. No major barriers to patient understanding were identified. An opportunity to ask questions regarding the treatment plan was provided. All questions were answered. The patient expressed understanding and agreement with the above treatment plan. The patient is aware they should contact our office by phone for worsening of their current condition or the appearance of new urologic symptoms. Compliance is encouraged with any medications and followup testing that is ordered. It is a privilege to participate in the urologic care of your patient. If you have any questions or concerns regarding treatment for the above conditions, or other urologic issues, please do not hesitate to contact me. The office telephone contact is [phone]. This note is constructed using voice recognition software. While every effort has been made to ensure accuracy talent management manager errors may have been included. Yours sincerely, Dr George William MD, MATTY [facility] - Urology Providers of Expert, Compassionate Care for the Genitourinary System Telehealth Telehealth Location of provider rendering services: practice address Location of patient: address on file Patient Identification confirmed using: Name, : Yes Telehealth method: video Patient verbally consented to treatment: Yes Patient verbally consented to billing insurance company: Yes Patient informed of any privacy concerns related to visit: Yes Coding Level of Care Code Tele Est Pt Level 3 (47198) Diagnoses Prostate cancer C61
== END 2022-12-14 09:29 | disposition home or self-care (01) ==
LOC: HO.HUSH 08:59
PROVIDERS: PCP Family Medicine; Visit Provider Urology
DX: C61 Malignant neoplasm of prostate (principal)
CPT/HCPCS: 99213

== ENCOUNTER → 2022-12-14 08:59 | Outpatient (BNVA) | payer MEDICARE, SELFPAY ==
[2022-11-30 13:14] VITALS: BP 120/58; BP 132/56; BMI 27.8
== END ==
PROVIDERS: PCP Family Medicine; Visit Provider Urology

== ENCOUNTER 2022-12-16 08:36 | Outpatient (AMB) | payer MEDICARE, SELFPAY ==
[2022-11-30 13:14] VITALS: BP 120/58; BP 132/56; BMI 27.8
[2022-12-16 08:43] VITALS: BP 122/62; PULSE 52; RESP 13; TEMP 37; O2SAT 99; BMI 28.0
--- NOTE | 2022-12-16 08:43 | A.OFFPC_ITS ---
Vital Signs 12/16/22 08:43 Height 5 ft 4 in Weight 163 lb BMI 28.0 BP 122/62 Blood Pressure Location Rt brachial Position Sitting Respiration 13 Pulse 52 Pulse Source Pulse Oximeter Temp 98.6 F Temp Source Temporal Artery Scan Pulse Oximetry (%) 99 Oxygen Delivery Method Room Air Intake Visit Reasons: f/u hypertension and chronic conditions Intake Note: Patient expresses no concerns at this time and reports he is just here for a follow up. Patient reports he is down to 1-2 cigarettes per day. 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 Blood pressure today 122/62, 49p. He is on hydrochlorothiazide 12.5mg, losartan 100mg and metoprolol 12.5mg daily. Pt had been having complaints of a cough but he states this has resolved. Chest x-ray was clear. Pt notes he has been undergoing cardiac rehab. He continues to f/u with Stewart Vazquez for his prostate. [facility] Medical History Heart attack High cholesterol Hypertension [place] (myocardial infarction) PVD (peripheral vascular disease) Surgical History History of carotid angioplasty History of esophagogastroduodenoscopy (EGD) History of heart artery stent History of prostate surgery Hx of colonoscopy S/P cardiac catheterization Family History Maternal Grandfather Colon cancer Social History Housing: House Alcohol intake: current Alcohol intake frequency: a few times a month Patient Tobacco Use Status: Current everyday Tobacco user Tobacco use type: Cigarette Cigarettes Per Day: 2 Years Smoked: 50 e-Cigarette/Vaping Use: Never Used Second Hand Smoke Exposure: No service: No Current occupational status: retired Current occupational exposures/hazards: No Cognitive needs: No Hearing needs: No Vision needs: No Questionnaire Thrive Questionnaire Date Thrive assessed: 04/15/21 VITA-7 AMB Questionnaire VITA-7 Date VITA - 7 assessed: 10/22/21 Source: Developed by Drs. Victoriano Baxter, Odessa Moscoso, Jered Schneider and colleagues, with an educational edwina from [employer]. Review of Systems Const Denies chills, Denies fatigue, Denies fever(s), Denies headache(s) and Denies weakness ENT Denies dizziness and Denies headache(s) Card Denies chest pain, Denies lightheadedness, Denies dyspnea and Denies other (Palpitations) Resp Denies cough, Denies dyspnea, Denies wheezing and Denies other ( shortness of breath) Musc Denies numbness and Denies tingling Neuro Denies dizziness, Denies headache(s), Denies numbness, Denies tingling, Denies paresthesias and Denies weakness Psych Denies anxiety and Denies depression Endo Denies fatigue Aller/Immun Denies wheezing Physical exam (Primary Care) Vital Signs: Last Vital Signs Temp 98.6 F 12/16/22 08:43 Pulse 49 L 12/16/22 08:43 Resp 13 12/16/22 08:43 BP 122/62 12/16/22 08:43 Pulse Ox 99 12/16/22 08:43 Oxygen Delivery Method Room Air 12/16/22 08:43 BMI result Body Mass Index 28.0 Tobacco/Smoking Status: Tobacco use Status Tobacco use date assessed 09/29/22 12/16/22 08:48 Patient Tobacco Use Status Current everyday Tobacco 12/16/22 08:48 Tobacco use type Cigarette 12/16/22 08:48 e-Cigarette/Vaping Use Never Used 12/16/22 08:48 Thrive Assessment: Date of Thrive Assessment Date Thrive assessed 04/15/21 12/16/22 08:48 Const General: no acute distress and well developed Nutritional Appearance: well nourished Orientation/consciousness: patient oriented x3 HENMT Head: Yes normocephalic and Yes atraumatic Eyes General: appearance normal, both eyes and all related structures Pupils: Equal, round and reactive pupils present EOM: EOMs intact bilaterally Resp Effort & Inspection: normal respiratory effort Auscultation: clear to auscultation bilaterally Cardio Rate: regular rate Rhythm: regular rhythm Heart sounds: S1 normal heart sound present, S2 normal heart sound present, no gallops, no murmurs and no rubs Neuro General: patient oriented x3 and gait normal Cranial nerves: Yes Equal, round and reactive pupils present Psych Affect: normal affect Assessment and Plan Assessment & Plan (1) Essential hypertension: Code(s): I10 - Essential (primary) hypertension Plan: Blood pressure again shows good control. Goal is less than 130/80. Taking medications as prescribed Still has significantly low heart rate and on low dose of metoprolol. This has been decreased from b.i.d. to daily dosing. Still bradycardic but has no symptoms from this and is tolerating cardiac rehab well. (2) CAD (coronary artery disease): Code(s): I25.10 - Atherosclerotic heart disease of [place] coronary artery without angina pectoris Plan: Status post NSTEMI and stent. He is on clopidogrel, atorvastatin and aspirin and a low-dose of metoprolol. Has been bradycardic as above. He is asymptomatic. Follow-up with Cardiology. Has questions regarding cardiac rehab and I advised he discuss with his food science technician. (3) NSTEMI (non-ST elevated myocardial infarction): Code(s): I21.4 - Non-ST elevation (NSTEMI) myocardial infarction Plan: As above (4) Cholelithiasis: Code(s): K80.20 - Calculus of gallbladder without cholecystitis without obstruction Plan: Asymptomatic cholelithiasis without cholecystitis. Can monitor (5) Knee pain: Code(s): M25.569 - Pain in unspecified knee Plan: Right lateral knee leg and thigh pain Will give him a script for diclofenac gel Form leg up prior to exercise and rehab Demonstrated gentle stretches He can follow-up with me if not improving (6) Prostate cancer: Comment: 11/22 [place] 3 + 3 RALP T3aN0 [facility] Code(s): C61 - Malignant neoplasm of prostate Plan: Doing well, followed by Dr. William He will follow-up with Dr. William as recommended (7) Bradycardia: Code(s): R00.1 - Bradycardia, unspecified Medications: New diclofenac sodium 1% apply to single knee, ankle, foot; for foot includes sole/toes/top of foot 4 grams topical QID 30 days PRN 100 grams 3RF pain Coding Level of Care Code Est Pt Level 4 (91683) Diagnoses Essential hypertension I10 CAD (coronary artery disease) I25.10 NSTEMI (non-ST elevated myocardial infarction) I21.4 Cholelithiasis K80.20 Knee pain M25.569 Prostate cancer C61 Bradycardia R00.1
== END 2022-12-16 09:34 | disposition home or self-care (01) ==
PROVIDERS: PCP Family Medicine; Visit Provider Family Medicine
DX: I10 Essential (primary) hypertension (principal); C61 Malignant neoplasm of prostate; I25.10 Atherosclerotic heart disease of native coronary artery without angina pectoris; K80.20 Calculus of gallbladder without cholecystitis without obstruction; M25.561 Pain in right knee; R00.1 Bradycardia, unspecified; I21.4 Non-ST elevation (NSTEMI) myocardial infarction
CPT/HCPCS: 99214

== ENCOUNTER → 2022-12-20 09:54 | Outpatient (REF) | payer MEDICARE, SELFPAY ==
[2022-11-30 13:14] VITALS: BP 120/58; BP 132/56; BMI 27.8
--- NOTE | 2022-12-20 09:57 | HM_ITS ---
Conclusion: 1. Patient was monitored for total period of 3 days 2. Baseline was normal sinus rhythm with average heart of 56 beats per minute with frequent sinus bradycardia, 66% of the time 3. No significant pauses noted 4. Frequent isolated PVCs noted with total burden of 2.4% 5. No patient reported events MTDD
== END ==
LOC: HO.CARD 09:54
PROVIDERS: PCP Family Medicine; Visit Provider Nurse Practitioner Family
DX: R00.1 Bradycardia, unspecified (principal)
CPT/HCPCS: 93242

== ENCOUNTER → 2022-12-20 09:57 | Outpatient (BNV) | payer MEDICARE, SELFPAY ==
[2022-12-24 05:51] VITALS: BP 120/58; BP 132/56; BMI 27.8
== END ==
PROVIDERS: PCP Family Medicine; Visit Provider Internal Medicine Cardiovascular Disease
DX: R00.1 Bradycardia, unspecified (principal)
CPT/HCPCS: 93244

== ENCOUNTER 2023-02-01 08:15 | Outpatient (AMB) | payer MEDICARE, SELFPAY ==
[2022-12-24 05:51] VITALS: BP 120/58; BP 132/56; BMI 27.8
--- NOTE | 2023-02-01 08:17 | A.OFFVIS_ITS ---
Intake Vital Signs 02/01/23 08:20 Height 5 ft 4 in Weight 162 lb 4.163 oz BMI 27.8 BP 132/64 Blood Pressure Location Lt brachial Position Sitting Pulse 63 Pulse Source Pulse Oximeter Pulse Oximetry (%) 99 Oxygen Delivery Method Room Air Intake Visit Reasons: 3 MON FUP AFTER ECHO + CARD. REHAB Intake Note: Pt presents to the office today for a 3 month follow up after echo and card rehab. Pt states he is feeling well and has no complaints at this time. Allergies No Known Allergies Allergy (Verified 02/01/23 08:22) Medication List - Last Reconciled 02/01/23 by Kae Medel NP-C aspirin (Adult Low Dose Aspirin) 81 mg PO DAILY atorvastatin 80 mg PO DAILY 90 days clopidogrel (Plavix) 75 mg PO DAILY diclofenac sodium 1% 4 grams topical QID PRN 30 days hydrochlorothiazide 12.5 mg PO DAILY 90 days losartan 100 mg PO DAILY 3 months HPI 3 MON FUP AFTER ECHO + CARD. REHAB HPI Details Ilya is a 67-year-old male with past medical history of hypertension, hyperlipidemia, smoking, peripheral vascular disease, CAD, RCA stent, who had NSTEMI 09/2022 with GALI placed to OM 1. Today he reports he has been doing well since his last visit in October. He attended approximally 6 sessions of cardiac rehab which he says he tolerated well. 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 He is able to climb stairs without any concerning symptoms. He denies any chest discomfort at rest or with activity. No shortness of breath, palpitations, presyncope, syncope, PND, orthopnea or edema. Overall pleased with how he feels. He is taking his meds as directed. No bleeding issues reported. Family member present. [facility] Medical History [place] (myocardial infarction) PVD (peripheral vascular disease) Heart attack High cholesterol Hypertension Surgical History S/P cardiac catheterization Hx of colonoscopy History of esophagogastroduodenoscopy (EGD) History of carotid angioplasty History of prostate surgery History of heart artery stent Family History Maternal Grandfather Colon cancer Social History Housing: House Alcohol intake: current Alcohol intake frequency: a few times a month Patient Tobacco Use Status: Current everyday Tobacco user Tobacco use type: Cigarette Cigarettes Per Day: 2 Years Smoked: 50 e-Cigarette/Vaping Use: Never Used Second Hand Smoke Exposure: No service: No Current occupational status: retired Current occupational exposures/hazards: No Cognitive needs: No Hearing needs: No Vision needs: No Review of Systems Const All systems reviewed & are unremarkable except as noted in HPI and below Physical Exam Vital Signs: Last Vital Signs Pulse 63 02/01/23 08:20 BP 132/64 02/01/23 08:20 Pulse Ox 99 02/01/23 08:20 Oxygen Delivery Method Room Air 02/01/23 08:20 BMI result Body Mass Index 27.8 Const General: cooperative, comfortable and no acute distress Orientation/consciousness: patient oriented x3 Neck Neck: Yes normal visual inspection Resp Effort & Inspection: normal respiratory effort Auscultation: clear to auscultation bilaterally, no crackles, no rales, no rhonchi and no wheezes Cardio Jugular venous distension: no JVD Rate: regular rate Rhythm: regular rhythm Heart sounds: S1 normal heart sound present, S2 normal heart sound present, no murmurs and no rubs GI Inspection: Yes normal to inspection Neuro General: patient oriented x3 Extrem General: Yes normal to inspection Psych Appearance: grossly normal Mental Status: mental status grossly normal Speech and movement: Normal speech and movement present Office Procedures EKG Details: Today, read by me Sinus Bradycardia, LVH, inferior infarct, ST/ T wave abn - no change from prior EKG, rate 56, QTc 418ms [id number], Complete Assessment & Plan Assessment & Plan (1) NSTEMI (non-ST elevated myocardial infarction): Code(s): I21.4 - Non-ST elevation (NSTEMI) myocardial infarction Plan: [facility] admission 09/2022 for mid chest burning which he thought was heartburn occurring intermittently for a few days prior to admission. He ruled in for NSTEMI and underwent urgent cardiac catheterization showing severe stenosis of OM1, GALI was placed. His EKG done last visit showed marked sinus bradycardia with T-wave inversions inferiorly and V4 through V6. EKG done today is unchanged. Echocardiogram was done on 11/09/2022 showing EF 65%, basal inferior, basal inferior lateral akinetic overall no change from 07/29/2021. Did attend 6 sessions of cardiac rehab. He was taken off metoprolol due to sinus bradycardia. A follow-up Holter was done on 12/20/2022 for 3 days showed sinus b radycardia/sinus rhythm, average heart rate 56, 66 % of the time heart rate less than 60, frequent PVCs 2.4% of time. Today he reports no recurrent chest discomfort, no heart palpitations. Signs and symptoms of angina reviewed. Continue aspirin indefinitely. Continue Plavix uninterrupted for at least 1 year. Continue high-dose atorvastatin with ideal LDL goal less than 70. Labs done 09/02/2022 showed LDL 56. Continue losartan, hydrochlorothiazide. Will keep off of beta-perlita. Cardiology follow-up in 6 months, sooner if needed. (2) S/P cardiac catheterization: Comment: 09/23/22 severe mid OM1 stenosis, PCI to OM1 Code(s): Z98.890 - Other specified postprocedural states Plan: As above (3) Essential hypertension: Code(s): I10 - Essential (primary) hypertension Plan: Well controlled at present, normal range at 132/64 (4) CAD (coronary artery disease): Code(s): I25.10 - Atherosclerotic heart disease of [place] coronary artery without angina pectoris (5) Stented coronary artery: Code(s): Z95.5 - Presence of coronary angioplasty implant and graft Plan: History of RCA stent. Also newer OM1 stent. (6) Abnormal EKG: Code(s): R94.31 - Abnormal electrocardiogram [ECG] [EKG] Plan: Inferior lateral T-wave inversions. No changes between last EKG and today. Asymptomatic Coding Level of Care Code Est Pt Level 3 (55651) Diagnoses NSTEMI (non-ST elevated myocardial infarction) I21.4 S/P cardiac catheterization Z98.890 Essential hypertension I10 CAD (coronary artery disease) I25.10 Stented coronary artery Z95.5 Abnormal EKG R94.31 CPT Codes EKG - CPT: [id number], Complete ([id number]) Time Spent (min) 24
[2023-02-01 08:20] VITALS: BP 132/64; PULSE 63; O2SAT 99; BMI 27.8
== END 2023-02-01 08:46 | disposition home or self-care (01) ==
PROVIDERS: PCP Family Medicine; Visit Provider Nurse Practitioner Family
DX: I21.4 Non-ST elevation (NSTEMI) myocardial infarction (principal); Z98.890 Other specified postprocedural states; I10 Essential (primary) hypertension; I25.10 Atherosclerotic heart disease of native coronary artery without angina pectoris; Z95.5 Presence of coronary angioplasty implant and graft; R94.31 Abnormal electrocardiogram [ECG] [EKG]
CPT/HCPCS: 93010; 99213

== ENCOUNTER → 2023-02-01 08:15 | Outpatient (BNVA) | payer MEDICARE, SELFPAY ==
[2022-12-24 05:51] VITALS: BP 120/58; BP 132/56; BMI 27.8
== END ==
PROVIDERS: PCP Family Medicine; Visit Provider Nurse Practitioner Family
DX: I21.4 Non-ST elevation (NSTEMI) myocardial infarction (principal); I10 Essential (primary) hypertension; I25.10 Atherosclerotic heart disease of native coronary artery without angina pectoris; R94.31 Abnormal electrocardiogram [ECG] [EKG]; Z95.5 Presence of coronary angioplasty implant and graft; Z98.890 Other specified postprocedural states
CPT/HCPCS: 93005; 99212

== ENCOUNTER 2023-04-07 09:23 | Outpatient (REF) | payer MEDICARE, SELFPAY ==
[2022-12-24 05:51] VITALS: BP 120/58; BP 132/56; BMI 27.8
[2023-04-07 11:51] LABS: Prostate Specific Antigen < 0.10 ng/mL (<0.05-4.0)
== END 2023-04-07 09:24 | disposition home or self-care (01) ==
LOC: HO.WFDLDS 09:23
PROVIDERS: Urology; Visit Provider Family Medicine
DX: Z12.5 Encounter for screening for malignant neoplasm of prostate (principal); I10 Essential (primary) hypertension; C61 Malignant neoplasm of prostate
CPT/HCPCS: 36415; 80053; 82043; 82570; 84153

== ENCOUNTER 2023-04-12 09:49 | Outpatient (AMB) | payer MEDICARE, SELFPAY ==
[2022-11-30 13:14] VITALS: BP 120/58; BP 132/56; BMI 27.8
[2022-12-24 05:51] VITALS: BP 120/58; BP 132/56; BMI 27.8
--- NOTE | 2023-04-12 09:48 | A.OFFVIS_ITS ---
Intake Intake Visit Reasons: 4m/PSA(set) Intake Note: Patient is Present for Follow Up PSA Urology Medication: None Antibiotic Allergies: None Blood Thinners: Aspirin, Plavix Current PSA: 04/07/2023- <0.10 Allergies No Known Allergies Allergy (Verified 04/12/23 09:50) HPI HPI Comments History of Present Illness Details Ilya is a pleasant male. He is a patient of Dr. Swift. He is seen with the following urologic conditions - prostate cancer PSA continues to remain well controlled States 2-3 liners per day 50% leakage Does have leakage with activity Discussed bladder sling At this point he is not interested Continue surveillance Q 6 month Prostate cancer [place] 3 + 3 initial management RALP pT3aN0 11/22 Prostate cancer initial diagnosis and procedure by Dr. [facility]id [facility] - 04/25 <0.1, 10/23 <0.1, 06/24 <0.1, 11/24 <0.1, 04/27 <0.1 No evidence of erections Baseline did use PDE5 Follow in 4 months with PSA then can move to q6m [facility] Medical History [place] (myocardial infarction) PVD (peripheral vascular disease) Heart attack High cholesterol Hypertension Surgical History S/P cardiac catheterization Hx of colonoscopy History of esophagogastroduodenoscopy (EGD) History of carotid angioplasty History of prostate surgery History of heart artery stent Family History Maternal Grandfather Colon cancer Social History Housing: House Alcohol intake: current Alcohol intake frequency: a few times a month Patient Tobacco Use Status: Current everyday Tobacco user Tobacco use type: Cigarette Cigarettes Per Day: 2 Years Smoked: 50 e-Cigarette/Vaping Use: Never Used Second Hand Smoke Exposure: No service: No Current occupational status: retired Current occupational exposures/hazards: No Cognitive needs: No Hearing needs: No Vision needs: No Review of Systems Const Denies chills and Denies fever(s) Card Reports no additional complaints and Denies syncope Resp Denies cough GI Denies abdominal pain and Denies heartburn Reports as per HPI and Denies change in libido Neuro Denies syncope Psych Denies change in libido Endo Denies change in libido Physical Exam Const General: cooperative, healthy appearing, comfortable and no acute distress Orientation/consciousness: patient oriented x3 HEENT Face and sinus: Yes normal facial exam Mouth: moist mucous membranes Neck Neck: Yes normal visual inspection, Yes full ROM and Yes trachea midline Chest Chest palpation & inspection: normal inspection of the chest Resp Effort & Inspection: normal respiratory effort, able to speak in complete sentences and no respiratory distress GI Inspection: Yes normal to inspection Back/Spine/Pelvis Cervical Spine: normal cervical lordosis Thoracic/Lumbar Spine: thoracic and lumbar spine normal to inspection Skin General skin exam: no rashes or lesions noted Neuro General: patient oriented x3, gait normal, tone normal and moves all extremities Extrem General: Yes normal to inspection and Yes capillary refill normal Assessment & Plan Assessment & Plan (1) Prostate cancer: Comment: 11/22 [place] 3 + 3 RALP T3aN0 [facility] Code(s): C61 - Malignant neoplasm of prostate (2) Male stress incontinence: Code(s): N39.3 - Stress incontinence (female) (male) Plan Six month follow-up PSA tele Patient Instructions: Imaging studies, laboratory and physical exam results were discussed and reviewed in detail. No major barriers to patient understanding were identified. An opportunity to ask questions regarding the treatment plan was provided. All questions were answered. The patient expressed understanding and agreement with the above treatment plan. The patient is aware they should contact our office by phone for worsening of their current condition or the appearance of new urologic symptoms. Compliance is encouraged with any medications and followup testing that is ordered. It is a privilege to participate in the urologic care of your patient. If you have any questions or concerns regarding treatment for the above conditions, or other urologic issues, please do not hesitate to contact me. The office telephone contact is [phone]. This note is constructed using voice recognition software. While every effort has been made to ensure accuracy breading machine tender errors may have been included. Yours sincerely, Dr George William MD, MATTY [facility] - Urology Providers of Expert, Compassionate Care for the Genitourinary System Coding Level of Care Code Est Pt Level 4 (63344) Diagnoses Prostate cancer C61 Male stress incontinence N39.3
== END 2023-04-12 10:11 | disposition home or self-care (01) ==
PROVIDERS: PCP Family Medicine; Visit Provider Urology
DX: C61 Malignant neoplasm of prostate (principal); N39.3 Stress incontinence (female) (male)
CPT/HCPCS: 99214

== ENCOUNTER → 2023-04-12 09:49 | Outpatient (BNVA) | payer MEDICARE, SELFPAY ==
[2022-12-24 05:51] VITALS: BP 120/58; BP 132/56; BMI 27.8
== END ==
PROVIDERS: PCP Family Medicine; Visit Provider Urology
DX: C61 Malignant neoplasm of prostate (principal); N39.3 Stress incontinence (female) (male)
CPT/HCPCS: 99212

== ENCOUNTER 2023-05-02 11:22 | Outpatient (AMB) | payer MEDICARE, SELFPAY ==
[2022-12-24 05:51] VITALS: BP 120/58; BP 132/56; BMI 27.8
--- NOTE | 2023-05-02 11:28 | A.OFFPC_ITS ---
Vital Signs 05/02/23 11:29 Height 5 ft 4 in Weight 161 lb 4 oz BMI 27.7 BP 124/62 Blood Pressure Location Lt brachial Position Sitting Pulse 56 Pulse Source Pulse Oximeter Pulse Oximetry (%) 100 Oxygen Delivery Method Room Air Intake Visit Reasons: HTN/chronic conditions Intake Note: Patient is here to follow up on hypertension. Allergies No Known Allergies Allergy (Verified 05/02/23 11:31) Tobacco use date assessed: 05/02/23 Fall risk assessment: No Falls in past year Last assessed Fall Risk: 05/02/23 Dental Screening Dental Screen Date: 05/02/23 Did you have a dental visit in the last 12 months?: No Did you have a dental problem in the last 6 months where you did not have access to dental care?: No Was dental information given to patient?: Patient declined HPI HTN/chronic conditions HPI Details 68 y/o male presents to f/u hypertension and chronic conditions. Blood pressure today 124/62. He is on hydrochlorothiazide 12.5mg and losartan 100mg daily. [facility] Medical History [place] (myocardial infarction) PVD (peripheral vascular disease) Heart attack High cholesterol Hypertension Surgical History S/P cardiac catheterization Hx of colonoscopy History of esophagogastroduodenoscopy (EGD) History of carotid angioplasty History of prostate surgery History of heart artery stent Family History Maternal Grandfather Colon cancer Social History Housing: House Alcohol intake: current Alcohol intake frequency: a few times a month Patient Tobacco Use Status: Current everyday Tobacco user Tobacco use type: Cigarette Cigarettes Per Day: 2 Years Smoked: 50 e-Cigarette/Vaping Use: Never Used Second Hand Smoke Exposure: No service: No Current occupational status: retired Current occupational exposures/hazards: No Cognitive needs: No Hearing needs: No Vision needs: No Questionnaire PHQ-9 Over the last 2 weeks, how often have you been bothered by any of the following problems? 1. Little interest or pleasure in doing things: not at all 2. Feeling down, depressed, or hopeless: not at all 3. Trouble falling or staying asleep, or sleeping too much: not at all 4. Feeling tired or having little energy: not at all 5. Poor appetite or overeating: not at all 6. Feeling bad about yourself - or that you are a failure or have let yourself or your family down: not at all 7. Trouble concentrating on things, such as reading the newspaper or watching television: not at all 8. Moving or speaking so slowly that other people could have noticed. Or the opposite - being so fidgety or restless that you have been moving around a lot more than usual: not at all 9. Thoughts that you would be better off or of hurting yourself in some way: not at all Total score: 0 Depression Screening Interpretation: Negative Depression Screening Done: Yes Source: Developed by Drs. Victoriano Baxter, Odessa Moscoso, Jered Schneider and colleagues, with an educational edwina from [employer]. Thrive Questionnaire Date Thrive assessed: 05/02/23 I am a: Patient What is your living situation today?: I have a steady place to live Within the past 12 months, did the food you bought not last and you didn't have the money to get more?: Never true Within the past 12 months, did you worry whether your food would run out before you got money to buy more?: Never true Do you have trouble paying for medicines?: No Do you have trouble getting transportation to medical appointments?: No Do you have trouble paying your heating and electricity bill?: No Do you have trouble taking care of your child, family member or friend?: No Do you have trouble with day-to-day activities such as bathing, preparing meals, shopping, managing finances, etc.?: No Are you currently unemployed and looking for a job?: No Are you interested in more education?: No THRIVE Score: 0 AUDIT C Alcohol Use Questionnaire (AUDIT-C) 1. How often do you have a drink containing alcohol?: Never 3. How often do you have six or more drinks on one occasion?: Never Total Score: 0 VITA-7 AMB Questionnaire VITA-7 Date VITA - 7 assessed: 05/02/23 Feeling nervous, anxious, or on edge: 0 = Not at all Not being able to stop or control worryin = Not at all Worrying too much about different things: 0 = Not at all Trouble relaxin = Not at all Being so restless that it is hard to sit still: 0 = Not at all Becoming easily annoyed or irritable: 0 = Not at all Feeling afraid as if something awful might happen: 0 = Not at all Total VITA-7 score (0-4 normal; 5-9 mild; 10-14 moderate; 15-21 severe): 0 Source: Developed by Drs. Victoriano Baxter, Odessa Moscoso, Jered Schneider and colleagues, with an educational edwina from [employer]. Review of Systems Const Denies chills, Denies fatigue, Denies fever(s), Denies headache(s) and Denies weakness ENT Denies dizziness and Denies headache(s) Card Denies chest pain, Denies lightheadedness, Denies dyspnea and Denies other (Palpitations) Resp Denies cough, Denies dyspnea, Denies wheezing and Denies other ( shortness of breath) Musc Denies numbness and Denies tingling Neuro Denies dizziness, Denies headache(s), Denies numbness, Denies tingling, Denies paresthesias and Denies weakness Psych Denies anxiety and Denies depression Endo Denies fatigue Aller/Immun Denies wheezing Physical exam (Primary Care) Vital Signs: Last Vital Signs Pulse 56 05/02/23 11:29 BP 124/62 05/02/23 11:29 Pulse Ox 100 05/02/23 11:29 Oxygen Delivery Method Room Air 05/02/23 11:29 BMI result Body Mass Index 27.7 Tobacco/Smoking Status: Tobacco use Status Tobacco use date assessed 05/02/23 05/02/23 11:32 Patient Tobacco Use Status Current everyday Tobacco 05/02/23 11:32 Tobacco use type Cigarette 05/02/23 11:32 e-Cigarette/Vaping Use Never Used 05/02/23 11:32 PHQ-9: PHQ-9 Score PHQ-9: Total score 0 05/02/23 11:37 Depression Screening Interpretation: Negative Thrive Assessment: Date of Thrive Assessment Date Thrive assessed 05/02/23 05/02/23 11:37 Const General: no acute distress and well developed Nutritional Appearance: well nourished Orientation/consciousness: patient oriented x3 HENPA Head: Yes normocephalic and Yes atraumatic Eyes General: appearance normal, both eyes and all related structures Pupils: Equal, round and reactive pupils present EOM: EOMs intact bilaterally Resp Effort & Inspection: normal respiratory effort Auscultation: clear to auscultation bilaterally Cardio Rate: regular rate Rhythm: regular rhythm Heart sounds: S1 normal heart sound present, S2 normal heart sound present, no gallops, no murmurs and no rubs Neuro General: patient oriented x3 and gait normal Cranial nerves: Yes Equal, round and reactive pupils present Psych Affect: normal affect Assessment and Plan Assessment & Plan (1) Essential hypertension: Code(s): I10 - Essential (primary) hypertension Plan: Blood?pressure?is?controlled.??Goal?is?less?berny n?130/80?for?patient?with?coronary?artery?disease Continue?losartan?and?hydrochlorothiazide (2) CAD (coronary artery disease): Code(s): I25.10 - Atherosclerotic heart disease of [place] coronary artery without angina pectoris Plan: Continue?aspirin?and?clopidogrel Follow-up?with?Cardiology?as?recommended (3) Smoker: Code(s): F17.200 - Nicotine dependence, unspecified, uncomplicated Plan: Recommended?cessation Will?have?patient?referred?for?low-dose?CT?screening?for?lung?cancer (4) Elevated LFTs: Code(s): R79.89 - Other specified abnormal findings of blood chemistry Plan: Mildly?elevated?liver?enzymes. Prior?ultrasound?did?not?show?hepatic?steatosis Will?continue?to?follow Orders: Orders Complete Blood Count Auto Diff Today Z00.00 - Encounter for general adult medical examination without abnormal findings Prostate Specific Antigen Scr Today Z12.5 - Encounter for screening for malignant neoplasm of prostate UA and rflx microscopic Today Z00.00 - Encounter for general adult medical examination without abnormal findings TSH reflex Free T4 Today Z00.00 - Encounter for general adult medical examination without abnormal findings Vitamin D 25-OH Total Today E55.9 - Vitamin D deficiency, unspecified Vitamin B12 and Folate Today E53.8 - Deficiency of other specified B group vitamins Comprehensive [place]. Panel Fast Today Z00.00 - Encounter for general adult medical examination without abnormal findings Lipid Panel Today Z00.00 - Encounter for general adult medical examination without abnormal findings Microalbumin, Random (w Creat) Today I10 - Essential (primary) hypertension Coding Level of Care Code Est Pt Level 4 (01775) Diagnoses Essential hypertension I10 CAD (coronary artery disease) I25.10 Smoker F17.200 Elevated LFTs R79.89
[2023-05-02 11:29] VITALS: BP 124/62; PULSE 56; O2SAT 100; BMI 27.7
== END 2023-05-02 12:16 | disposition home or self-care (01) ==
PROVIDERS: PCP Family Medicine; Visit Provider Family Medicine
DX: I10 Essential (primary) hypertension (principal); I25.10 Atherosclerotic heart disease of native coronary artery without angina pectoris; F17.200 Nicotine dependence, unspecified, uncomplicated; R79.89 Other specified abnormal findings of blood chemistry
CPT/HCPCS: 99214

== ENCOUNTER 2023-05-10 08:48 | Outpatient (REF) | payer MEDICARE, SELFPAY ==
[2022-12-24 05:51] VITALS: BP 120/58; BP 132/56; BMI 27.8
--- NOTE | ~2023-05-10 | US_ITS ---
EXAMINATION: 1. US RETROPERITONEAL LIMITED (AORTA) 2. Noninvasive assessment of the bilateral lower extremities with ARTERIAL DUPLEX and ANKLE BRACHIAL INDICES (ABIs). CLINICAL INFORMATION: Peripheral vascular disease. History of right lower extremity atherectomy with superficial femoral artery stent COMPARISON: Ultrasound arterial duplex of the lower extremities dated 04/08/2022 TECHNIQUE: 1. Wisdom-scale, color Doppler and spectral Doppler evaluation of the abdominal aorta. 2. Duplex Doppler techniques with waveform analysis and measurement of velocities in the bilateral common femoral, profunda femoris, superficial femoral, popliteal and tibial arteries were performed. Additionally, ankle pulse volume recordings, ankle pressure measurements and ankle brachial indices were obtained of the lower extremity arterial system bilaterally. The study was performed only at rest. FINDINGS: AORTOILIAC VESSELS: The aorta is normal. The measurements of the aorta in maximum AP and transverse dimensions respectively are as follows: Proximal: 2.3 cm, 78 cm/s Mid: 1.5 cm, 77 cm/s Distal: 1.6 cm, 63 cm/s The iliac bifurcation is obscured by bowel gas. The measurements of the common iliac arteries in maximum AP and TRV dimensions are as follows: Right Common Iliac Artery: Obscured by bowel gas Right external iliac artery: 142 cm/s Left Common Iliac Artery: Obscured by bowel gas Left external iliac artery: 188 cm/s DIRECT DUPLEX DOPPLER FINDINGS: RIGHT LEG: Common femoral artery: 200 cm/s, phasicity: Triphasic Profunda femoris artery: 187 cm/s, phasicity: Triphasic Superficial femoral artery (proximal): 80 cm/s, phasicity: Biphasic Superficial femoral artery (mid stent): 106 cm/s, phasicity: Biphasic Superficial femoral artery (distal stent): 121 cm/s, phasicity: Biphasic Popliteal artery: 55 cm/s, phasicity: Biphasic Posterior tibial artery: 44 cm/s, phasicity: Biphasic Peroneal artery: Not visualized Anterior tibial artery: 72 cm/s, phasicity: Biphasic Dorsalis pedis artery: 28 cm/s, phasicity:Biphasic LEFT LEG: Common femoral artery: 149 cm/s, phasicity: Monophasic Profunda femoris artery: 203 cm/s, phasicity: Monophasic Superficial femoral artery (proximal): Occluded Superficial femoral artery (mid): Occluded Superficial femoral artery (distal): Occluded Popliteal artery: 15 cm/s, phasicity: Monophasic Posterior tibial artery: 17 cm/s, phasicity: Monophasic Peroneal artery: Not visualized Anterior tibial artery: 11 cm/s, phasicity: Monophasic Dorsalis pedis artery: 12 cm/s, phasicity: Monophasic ANKLE-BRACHIAL INDEX: Right: 0.85, previously 0.77? Left: 0.43, previously 0.52 ANKLE PRESSURES: Right: PT 99, DP 103 Left: PT?52, DP?48 ANKLE PVR WAVEFORMS: Right: Abnormal Left: Abnormal US/US abdominal aortic aneurysm IMPRESSION: Aorta iliac vessels: 1. Patent aorta and bilateral external iliac arteries without significant stenosis. Right le. Mildly decreased ankle brachial index. 2. The stent in the right superficial femoral artery remains patent but with decreased flows compared to prior exam. Left le. Severely decreased ankle brachial index, which is worsened when compared to prior at which time it was moderately decreased. 2. Monophasic flow of the common femoral artery is unchanged from prior. 3. Occlusion of the entire left superficial femoral artery, previously only occluded in the mid and distal segments. 4. Reconstitution of the popliteal artery and below the knee runoff vessels, which contain markedly dampened flow. NATALYA Reference: - >1.4 = calcified vessels - 0.9 - 1.4 = normal - no significant arterial disease - 0.7 - 0.89 = mild peripheral arterial disease - 0.51 - 0.69 = moderate peripheral arterial disease - ? 0.50 = severe peripheral arterial disease - < .30 = critical arterial disease
== END 2023-05-10 08:49 | disposition home or self-care (01) ==
LOC: HO.US 08:48
PROVIDERS: PCP Family Medicine; Visit Provider Surgery Vascular Surgery
DX: I70.213 Atherosclerosis of native arteries of extremities with intermittent claudication, bilateral legs (principal)
CPT/HCPCS: 76706; 93923; 93925

== ENCOUNTER 2023-05-31 10:07 | Outpatient (AMB) | payer MEDICARE, SELFPAY ==
[2022-12-24 05:51] VITALS: BP 120/58; BP 132/56; BMI 27.8
--- NOTE | 2023-05-31 10:19 | MHC.OFFVIS ---
Intake Vital Signs 05/31/23 10:20 Height 5 ft 4 in Weight 161 lb BMI 27.6 Intake Visit Reasons: 1 yr fu after ul Intake Note: Patient here for 1 year follow up arterial. States his legs are fine no pain , swelling or discoloration. Accompanied by: Self / Same As Patient Allergies No Known Allergies Allergy (Verified 05/31/23 10:21) HPI 1 yr fu after ul HPI Details Very pleasant 68-year-old female presents for follow-up regarding peripheral vascular disease. He is able to ambulate a block and carry out his activities of daily living. It has been nearly 2 years since we had performed an endovascular procedure on him. He reports he is doing fairly well. He has no other interval issues. He now presents for routine follow-up with noninvasive testing PENDING SALE TO [facility] Medical History [place] (myocardial infarction) PVD (peripheral vascular disease) Heart attack High cholesterol Hypertension Surgical History S/P cardiac catheterization Hx of colonoscopy History of esophagogastroduodenoscopy (EGD) History of carotid angioplasty History of prostate surgery History of heart artery stent Family History Maternal Grandfather Colon cancer Social History Housing: House Alcohol intake: current Alcohol intake frequency: a few times a month Patient Tobacco Use Status: Current everyday Tobacco user Tobacco use type: Cigarette Cigarettes Per Day: 2 Years Smoked: 50 e-Cigarette/Vaping Use: Never Used Second Hand Smoke Exposure: No service: No Current occupational status: retired Current occupational exposures/hazards: No Cognitive needs: No Hearing needs: No Vision needs: No Review of Systems Const All systems reviewed & are unremarkable except as noted in HPI and below Reports no additional complaints ENT Reports Normal hearing present Card Denies chest pain, Denies chest pain at rest, Denies chest pain with activity and Denies pedal edema Resp Denies cough GI Denies abdominal pain Musc Denies abnormal gait, Denies muscle cramps and Denies radiating pain into limb Skin/Breast Denies skin ulcer and Denies wounds Neuro Reports Normal hearing present and Denies abnormal gait Psych Reports no additional complaints Physical Exam Vital Signs: BMI result Body Mass Index 27.6 Const General: cooperative, healthy appearing and comfortable Orientation/consciousness: oriented to person, oriented to place and oriented to time HEENT Head: Yes normal to inspection Neck Neck: Yes normal visual inspection Carotids: no bruits Chest Chest palpation & inspection: normal inspection of the chest Resp Effort & Inspection: normal respiratory effort and able to speak in complete sentences Auscultation: clear to auscultation bilaterally, no crackles, no rales, no rhonchi and no wheezes Cardio Rate: regular rate Rhythm: regular rhythm Heart sounds: S1 normal heart sound present and S2 normal heart sound present Bruits: no carotid bruits Peripheral pulses: Peripheral pulses 2+ throughout GI Inspection: Yes normal to inspection Skin Wounds: no wounds Hair: normal Neuro General: oriented to person, oriented to place and oriented to time Cranial nerves: Yes CN's II-XII intact bilaterally and Yes Normal hearing present Cognition (Neuro): normal cognition Motor exam (neuro): 5/5 motor strength present throughout Extrem Other: venous exam: No significant superficial varicosities or spider telangiectasias, minimal edema General: No clubbing, No cyanosis and No edema Psych Appearance: grossly normal Mental Status: mental status grossly normal Speech and movement: Normal speech and movement present Results Reviewed Results Reviewed: Noninvasive arterial testing dated 05/10/2023 demonstrates NATALYA on the right of 0.85 and on the left of 0.43 with occluded left SFA. Assessment & Plan Assessment & Plan (1) Carotid stenosis: Comment: 06/26/2020 - right carotid endarterectomy by Dr. Murillo at [facility] Code(s): I65.29 - Occlusion and stenosis of unspecified carotid artery Qualifiers: Laterality: bilateral Qualified Code(s): I65.23 - Occlusion and stenosis of bilateral carotid arteries Plan: The patient does have carotid disease. It has not been surveilled in some time. Will schedule for annual surveillance. (2) PVD (peripheral vascular disease): Comment: 07/15/2021- right SFA atherectomy and stent Code(s): I73.9 - Peripheral vascular disease, unspecified Plan: At the current time has stable claudication. We did discuss routine risk factor modification. We will schedule him for annual surveillance. Thank you for allowing us to assist in his care. Orders: Orders US arterial duplex LE BI 364 Days I73.9 - Peripheral vascular disease, unspecified US carotid duplex BI 364 Days I65.23 - Occlusion and stenosis of bilateral carotid arteries Coding Level of Care Code Est Pt Level 4 (59408) Diagnoses Bilateral carotid artery stenosis I65.23 Laterality: bilateral PVD (peripheral vascular disease) I73.9
[2023-05-31 10:20] VITALS: BMI 27.6
== END 2023-05-31 10:43 | disposition home or self-care (01) ==
PROVIDERS: PCP Family Medicine; Visit Provider Surgery Vascular Surgery
DX: I65.23 Occlusion and stenosis of bilateral carotid arteries (principal); I73.9 Peripheral vascular disease, unspecified
CPT/HCPCS: 99214

== ENCOUNTER → 2023-05-31 10:07 | Outpatient (BNVA) | payer MEDICARE, SELFPAY ==
[2022-12-24 05:51] VITALS: BP 120/58; BP 132/56; BMI 27.8
== END ==
PROVIDERS: PCP Family Medicine; Visit Provider Surgery Vascular Surgery
DX: I65.23 Occlusion and stenosis of bilateral carotid arteries (principal); I73.9 Peripheral vascular disease, unspecified
CPT/HCPCS: 99212

== ENCOUNTER 2023-08-02 08:09 | Outpatient (AMB) | payer MEDICARE, SELFPAY ==
[2022-12-24 05:51] VITALS: BP 120/58; BP 132/56; BMI 27.8
[2023-08-02 08:15] VITALS: BP 114/64; PULSE 54; BMI 27.5
--- NOTE | 2023-08-02 08:15 | MHC.OFFVIS ---
Vital Signs 08/02/23 08:15 Height 5 ft 4 in Weight 160 lb 0.889 oz BMI 27.5 BP 114/64 Blood Pressure Location Rt brachial Position Sitting Pulse 54 Pulse Source Doppler Intake Visit Reasons: 6 mth f/up Allergies No Known Allergies Allergy (Verified 08/02/23 08:17) HPI HPI 6 mth f/up: Details: Ilya is a 68-year-old male with past medical history of hypertension, hyperlipidemia, smoking, peripheral vascular disease, CAD, RCA stent, who had NSTEMI 09/2022 with GALI placed to OM 1. Today he reports he has been doing well since his last visit in May. 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 He attends record shows. He is able to climb stairs without any concerning symptoms. He denies any chest discomfort at rest or with activity. No shortness of breath, palpitations, presyncope, syncope, PND, orthopnea or edema. Continues to bel pleased with how he feels. He is taking his meds as directed. No bleeding issues reported. [facility] Medical History [place] (myocardial infarction) PVD (peripheral vascular disease) Heart attack High cholesterol Hypertension Surgical History S/P cardiac catheterization Hx of colonoscopy History of esophagogastroduodenoscopy (EGD) History of carotid angioplasty History of prostate surgery History of heart artery stent Family History Maternal Grandfather Colon cancer Social History Housing: House Alcohol intake: current Alcohol intake frequency: a few times a month Patient Tobacco Use Status: Current everyday Tobacco user Tobacco use type: Cigarette Cigarettes Per Day: 2 Years Smoked: 50 e-Cigarette/Vaping Use: Never Used Second Hand Smoke Exposure: No service: No Current occupational status: retired Current occupational exposures/hazards: No Cognitive needs: No Hearing needs: No Vision needs: No Review of Systems Const All systems reviewed & are unremarkable except as noted in HPI and below ENT Denies dizziness Card Denies chest pain, Denies chest pain at rest, Denies chest pain with activity, Denies rapid heart rate, Denies pedal edema, Denies edema, Denies leg edema, Denies lightheadedness, Denies palpitations, Denies dyspnea, Denies dyspnea on exertion and Denies orthopnea Resp Denies cough, Denies dyspnea and Denies dyspnea on exertion GI Denies hematochezia and Denies change in stool character Musc Denies abnormal gait, Denies limited range of motion, Denies muscle cramps, Denies muscle weakness, Denies numbness, Denies radiating pain into limb, Denies stiffness and Denies tingling Neuro Denies abnormal gait, Denies dizziness, Denies numbness and Denies tingling Endo Denies palpitations Physical Exam Vital Signs: Last Vital Signs Resp 53 H 08/02/23 08:15 BP 114/64 08/02/23 08:15 BMI result Body Mass Index 27.5 Const General: cooperative, healthy appearing, comfortable and no acute distress Orientation/consciousness: patient oriented x3 Neck Neck: Yes normal visual inspection and Yes no JVD Resp Effort & Inspection: normal respiratory effort Auscultation: clear to auscultation bilaterally, no crackles, no rales, no rhonchi and no wheezes Cardio Jugular venous distension: no JVD Rate: regular rate Rhythm: regular rhythm Heart sounds: S1 normal heart sound present, S2 normal heart sound present, no murmurs and no rubs Neuro General: patient oriented x3 Extrem General: Yes normal to inspection, No no pedal edema and No calf tenderness Psych Appearance: grossly normal Mental Status: mental status grossly normal Speech and movement: Normal speech and movement present Assessment & Plan Assessment & Plan (1) NSTEMI (non-ST elevated myocardial infarction): Code(s): I21.4 - Non-ST elevation (NSTEMI) myocardial infarction Category: Medical Plan: [facility] [place] 09/2022 for mid chest burning which he thought was heartburn occurring intermittently for a few days prior to admission. He ruled in for NSTEMI and underwent urgent cardiac catheterization showing severe stenosis of OM1, GALI was placed. His EKG done last visit showed marked sinus bradycardia with T-wave inversions inferiorly and V4 through V6. EKG done today is unchanged. Echocardiogram was done on 11/09/2022 showing EF 65%, basal inferior, basal inferior lateral akinetic overall no change from 07/29/2021. Did attend 6 sessions of cardiac rehab. He was taken off metoprolol due to sinus bradycardia. A follow-up Holter was done on 12/20/2022 for 3 days showed sinus bradycardia/sinus rhythm, average heart rate 56, 66 % of the time heart rate less than 60, frequent PVCs 2.4% of time. Today he reports no recurrent chest discomfort, no heart palpitations. Signs and symptoms of angina reviewed. Continue aspirin indefinitely. Continue Plavix uninterrupted for at least 1 year. Informed him he may stop Plavix as of 10/03/2023. Continue high-dose atorvastatin with ideal LDL goal less than 70. Labs done 09/02/2022 showed LDL 56. Order for repeat lipid profile in the system. Patient informed. Continue losartan, hydrochlorothiazide. Will keep off of beta-perlita. Cardiology follow-up in 6 months, sooner if needed. (2) S/P cardiac catheterization: Comment: 09/23/22 severe mid OM1 stenosis, PCI to OM1 Code(s): Z98.890 - Other specified postprocedural states Category: Surgical Plan: As above (3) Essential hypertension: Code(s): I10 - Essential (primary) hypertension Category: Medical Plan: Well controlled at present, normal range at 132/64 (4) CAD (coronary artery disease): Code(s): I25.10 - Atherosclerotic heart disease of [place] coronary artery without angina pectoris Category: Medical Plan: As above (5) Stented coronary artery: Code(s): Z95.5 - Presence of coronary angioplasty implant and graft Category: Surgical Plan: History of RCA stent. Also newer OM1 stent. (6) Abnormal EKG: Code(s): R94.31 - Abnormal electrocardiogram [ECG] [EKG] Category: Medical Plan: Inferior lateral T-wave inversions. No changes between prior EKG and 1 done last visit. Asymptomatic Patient Instructions: Time spent on chart review, documentation, interview and assessment Coding Level of Care Code Est Pt Level 3 (82643) Diagnoses NSTEMI (non-ST elevated myocardial infarction) I21.4 S/P cardiac catheterization Z98.890 Essential hypertension I10 CAD (coronary artery disease) I25.10 Stented coronary artery Z95.5 Abnormal EKG R94.31 Time Spent (min) 24
== END 2023-08-02 08:34 | disposition home or self-care (01) ==
PROVIDERS: PCP Family Medicine; Visit Provider Nurse Practitioner Family
DX: I21.4 Non-ST elevation (NSTEMI) myocardial infarction (principal); Z98.890 Other specified postprocedural states; I10 Essential (primary) hypertension; I25.10 Atherosclerotic heart disease of native coronary artery without angina pectoris; Z95.5 Presence of coronary angioplasty implant and graft; R94.31 Abnormal electrocardiogram [ECG] [EKG]
CPT/HCPCS: 99213

== ENCOUNTER → 2023-08-02 08:09 | Outpatient (BNVA) | payer MEDICARE, SELFPAY ==
[2022-12-24 05:51] VITALS: BP 120/58; BP 132/56; BMI 27.8
== END ==
PROVIDERS: PCP Family Medicine; Visit Provider Nurse Practitioner Family
DX: I25.2 Old myocardial infarction (principal); I10 Essential (primary) hypertension; I25.10 Atherosclerotic heart disease of native coronary artery without angina pectoris; R94.31 Abnormal electrocardiogram [ECG] [EKG]; Z95.5 Presence of coronary angioplasty implant and graft; Z98.890 Other specified postprocedural states
CPT/HCPCS: 99212

== ENCOUNTER 2023-08-24 11:52 | Outpatient (AMB) | payer MEDICARE, SELFPAY ==
[2022-12-24 05:51] VITALS: BP 120/58; BP 132/56; BMI 27.8
[2023-08-24 12:44] VITALS: BP 140/86; PULSE 50; O2SAT 97; BMI 27.4
--- NOTE | 2023-08-24 12:44 | MHC.PC.OV ---
Vital Signs 08/24/23 12:44 Height 5 ft 4 in Weight 159 lb 6 oz BMI 27.4 BP 140/86 H Blood Pressure Location Lt brachial Position Sitting Pulse 50 Pulse Source Pulse Oximeter Pulse Oximetry (%) 97 Oxygen Delivery Method Room Air Intake Visit Reasons: CPE Intake Note: Patient is here for his physical today. Allergies No Known Allergies Allergy (Verified 08/24/23 12:45) Medication List - Last Reconciled 08/24/23 by Brett Swift MD aspirin (Adult Low Dose Aspirin) 81 mg PO DAILY atorvastatin 80 mg PO DAILY 90 days clopidogrel (Plavix) 75 mg PO DAILY diclofenac sodium 1% 4 grams topical QID PRN 30 days hydrochlorothiazide 12.5 mg PO DAILY 90 days losartan 100 mg PO DAILY 3 months Tobacco use date assessed: 08/24/23 Fall risk assessment: No Falls in past year Last assessed Fall Risk: 08/24/23 Dental Screening Dental Screen Date: 05/02/23 HPI CPE HPI Details 68 y/o male presents for an extended exam with f/u labs and health maintenance. No recent labs to review. Blood pressure today 140/86. He is on losartan 100mg, HCTZ 12.5mg daily. Hx of CAD. PSA level up to date. He states last colonoscopy was before he retired around 2020. 10 year f/u per pt. [facility] Medical History [place] (myocardial infarction) PVD (peripheral vascular disease) Heart attack High cholesterol Hypertension Surgical History S/P cardiac catheterization Hx of colonoscopy History of esophagogastroduodenoscopy (EGD) History of carotid angioplasty History of prostate surgery History of heart artery stent Family History Maternal Grandfather Colon cancer Social History Housing: House Alcohol intake: current Alcohol intake frequency: a few times a month Patient Tobacco Use Status: Current everyday Tobacco user Tobacco use type: Cigarette Cigarettes Per Day: 2 Years Smoked: 50 e-Cigarette/Vaping Use: Never Used Second Hand Smoke Exposure: No service: No Current occupational status: retired Current occupational exposures/hazards: No Cognitive needs: No Hearing needs: No Vision needs: No Questionnaire Thrive Questionnaire Date Thrive assessed: 05/02/23 VITA-7 AMB Questionnaire VITA-7 Date VITA - 7 assessed: 05/02/23 Source: Developed by Drs. Victoriano Baxter, Odessa Moscoso, Jered Schneider and colleagues, with an educational edwina from [employer]. Review of Systems Const Denies chills, Denies fatigue, Denies fever(s), Denies headache(s) and Denies weakness Eyes Denies change in vision ENT Denies dizziness, Denies headache(s), Denies hearing loss, Denies nasal congestion, Denies sinus pain, Denies sinus pressure and Denies sore throat Card Denies chest pain, Denies lightheadedness, Denies dyspnea and Denies other (palpitations) Resp Denies cough, Denies dyspnea and Denies wheezing GI Denies abdominal pain, Denies melena, Denies hematochezia, Denies change in bowel habits, Denies dyspepsia and Denies nausea Denies hematuria and Denies dysuria Musc Denies abnormal gait, Denies myalgias, Denies arthralgias, Denies numbness and Denies tingling Skin/Breast Denies rash, Denies unusual bruising and Denies wounds Neuro Denies abnormal gait, Denies dizziness, Denies headache(s), Denies memory loss, Denies numbness, Denies Sensory deficit (Neuro), Denies tingling and Denies weakness Psych Denies anxiety, Denies depression and Denies memory loss Endo Denies cold intolerance, Denies fatigue, Denies heat intolerance, Denies polydipsia and Denies polyuria Napoleon/Lymph Denies easy bleeding and Denies easy bruising Aller/Immun Denies wheezing Physical exam (Primary Care) Vital Signs: Last Vital Signs Pulse 50 08/24/23 12:44 BP 140/86 H 08/24/23 12:44 Pulse Ox 97 08/24/23 12:44 Oxygen Delivery Method Room Air 08/24/23 12:44 BMI result Body Mass Index 27.4 Tobacco/Smoking Status: Tobacco use Status Tobacco use date assessed 08/24/23 08/24/23 12:46 Patient Tobacco Use Status Current everyday Tobacco 08/24/23 12:46 Tobacco use type Cigarette 08/24/23 12:46 e-Cigarette/Vaping Use Never Used 08/24/23 12:46 Thrive Assessment: Date of Thrive Assessment Date Thrive assessed 05/02/23 08/24/23 12:46 Const General: no acute distress, well developed, alert and awake Nutritional Appearance: well nourished Orientation/consciousness: patient oriented x3 HENMT Head: Yes normocephalic and Yes atraumatic Ears: hearing grossly normal bilaterally and TM's normal bilaterally General nose exam: Normal external nose present and Normal nares present Mouth: Normal oral and palatal mucosa present and moist mucous membranes Teeth and gingiva: dentition normal Throat: Yes posterior oropharynx normal Eyes General: appearance normal, both eyes and all related structures Pupils: Equal, round and reactive pupils present and Pupil accommodation reflex normal EOM: EOMs intact bilaterally Neck Neck: Yes normal visual inspection, Yes no lymphadenopathy and Yes trachea midline Thyroid: Thyroid normal Carotids: no bruits Lymphatic: no lymphadenopathy noted Chest Chest palpation & inspection: normal inspection of the chest Resp Effort & Inspection: normal respiratory effort Auscultation: clear to auscultation bilaterally Cardio Rate: regular rate Rhythm: regular rhythm Heart sounds: S1 normal heart sound present, S2 normal heart sound present, no gallops, no murmurs and no rubs Bruits: no abdominal aortic bruits and no carotid bruits GI Palpation (GI): No Abdominal aortic bruit present, Soft to palpation, nontender, No hepatosplenomegaly present and No Rebound tenderness present Auscultation: normal bowel sounds General: Yes no CVA tenderness Back/Spine/Pelvis Back: no CVA tenderness Cervical Spine: cervical ROM normal and No Cervical spine tenderness Thoracic/Lumbar Spine: thoraco-lumbar ROM normal, No pain with thoraco-lumbar ROM, No thoracic spinal tenderness and No lumbar spinal tenderness Skin Lesions: no lesions Rashes: no rashes Trauma: no lacerations or abrasions Wounds: no wounds Nails: normal Neuro General: patient oriented x3 Cranial nerves: Yes Equal, round and reactive pupils present Cognition (Neuro): normal cognition Gait exam (Neuro): Normal gait present Motor exam (neuro): 5/5 motor strength present throughout Sensory Exam: No Sensory deficit (Neuro) Deep tendon reflexes (DTR's): Right patellar reflex intensity grade: 2+ and Left patellar reflex intensity grade: 2+ Extrem General: Yes normal to inspection and No edema Psych Appearance: grossly normal Affect: normal affect Attitude: cooperative Thought process: Normal thought process present Assessment and Plan Assessment & Plan (1) Adult general medical exam: Code(s): Z00.00 - Encounter for general adult medical examination without abnormal findings Plan: 68-year-old?male?presents?for?complete?physical?exam Encouraged?healthy?diet?with?active?lifestyle?and?plenty?of?exercise (2) Essential hypertension: Code(s): I10 - Essential (primary) hypertension Plan: Blood?pressure?is?too?high?today?for?patient?with?coronary?artery?disease.??Goal?is?less?than?130/80 His?blood?pressures?have?been?fairly?well?controlled?so?this?may?just?be?an?anomaly?today. Will?have?him?come?back?in?a?month?for?follow-up.??If?still?elevated?I?will?adjust?his?medications.??Metoprolol?was?discontinued?due?to?significant?bradycardia. (3) CAD (coronary artery disease): Code(s): I25.10 - Atherosclerotic heart disease of [place] coronary artery without angina pectoris Plan: Stable?and?followed?by?cardiology Continue?current?medication?regimen?and?follow-up?with?Cardiology?as?recommended (4) Screening for colon cancer: Code(s): Z12.11 - Encounter for screening for malignant neoplasm of colon Plan: Patient?says?his?last?colonoscopy?was?in[facility]-will?request?report (5) Screening for prostate cancer: Code(s): Z12.5 - Encounter for screening for malignant neoplasm of prostate Plan: PSA?in?April?was?within?normal?range Coding Level of Care Code Est Pt Level 4 (50142) Diagnoses Adult general medical exam Z00.00 Essential hypertension I10 CAD (coronary artery disease) I25.10 Screening for colon cancer Z12.11 Screening for prostate cancer Z12.5
== END 2023-08-24 16:52 | disposition home or self-care (01) ==
PROVIDERS: PCP Family Medicine; Visit Provider Family Medicine
DX: Z00.00 Encounter for general adult medical examination without abnormal findings (principal); I10 Essential (primary) hypertension; I25.10 Atherosclerotic heart disease of native coronary artery without angina pectoris; Z12.11 Encounter for screening for malignant neoplasm of colon; Z12.5 Encounter for screening for malignant neoplasm of prostate
CPT/HCPCS: 99397

== ENCOUNTER 2023-09-20 07:33 | Outpatient (REF) | payer MEDICARE, SELFPAY ==
[2022-12-24 05:51] VITALS: BP 120/58; BP 132/56; BMI 27.8
[2023-09-20 11:29] LABS: MANUAL DIFF FLAG NO
[2023-09-20 11:38] LABS: Appearance Urine Clear; Color Urine Yellow; Glucose Urine UA Negative (Negative); Leukocyte Esterase Urine Small (1+) (Negative); Nitrite Urine Negative (Negative); Specific Gravity - Urine 1.015 (1.005-1.025); UMIC TRIGGER UA YES; Urine Blood Negative (Negative); Urine Ketones Negative (Negative); Urine Protein Negative (Neg-Trace)
[2023-09-20 11:50] LABS: Bacteria Urine None Seen (None Seen); Hyaline Casts Urine 0-2 /LPF (0-2); RBC Urine 0-2 /HPF (0-2); Squamous Epithelial Cell Urine 0-2 /HPF (0-2)
[2023-09-20 12:05] LABS: Basophils Absolute Auto 0.1 X10*3/uL (0.0-0.2); Basophils Percent Auto 1.4 % (0-2); Eosinophils Absolute Auto 0.4 X10*3/uL (0.0-0.4); Eosinophils Percent Auto 4.6 % (0-4); Hemoglobin 15.3 g/dl (14.0-18.0); Imm Gran Abs Auto 0.03 X10*3/uL (0.00-0.03); Imm Gran Pct Auto 0.3 % (0.0-0.4); Lymphocytes Absolute Auto 1.7 X10*3/uL (1.2-4.9); Lymphocytes Percent Auto 18.1 % (20-40); Mean Corpuscular HGB Conc 34.8 g/dl (31.0-36.0); Mean Corpuscular Hemoglobin 32.4 pg (27.0-33.0); Mean Corpuscular Volume 93.2 fL (80.0-98.0); Mean Platelet Volume 12.9 fL (9.4-12.4); Monocytes Absolute Auto 0.6 X10*3/uL (0.1-1.2); Monocytes Percent Auto 6.5 % (2-11); Neutrophils Absolute Auto 6.4 x10*3/uL (2.0-8.3); Neutrophils Percent Auto 69.1 % (45-73); Platelet Count 148 X10*3/uL (160-400); Red Blood Count 4.72 X10*6/uL (4.60-5.80); Red Cell Distribution Width 12.6 % (11.0-16.0); White Blood Count 9.3 X10*3/uL (4.8-10.8)
[2023-09-20 12:28] LABS: Alanine Aminotransferase 29 U/L (0-40); Alkaline Phosphatase 85 U/L (39-117); Anion Gap 11 (12-20); Aspartate Amino Transferase 21 U/L (5-37); Bilirubin Total 0.8 mg/dL (0.0-1.0); Blood Urea Nitrogen 23 mg/dL (9-16); Calcium 8.8 mg/dL (8.4-10.2); Carbon Dioxide 27 mmol/L (22-29); Chloride 105 mmol/L (96-108); Cholesterol 101 mg/dL (<200); Estimated Glomerular Filt Rate > 60; Glucose Fasting 95 mg/dL (60-99); HDL Cholesterol 26 mg/dL (>40); LDL Cholesterol Calculated 62 mg/dL (<100); Potassium 4.3 mmol/L (3.3-5.1); Sodium 139 mmol/L (135-145); Total Protein 6.6 g/dL (6.5-8.0); Triglycerides 67 mg/dL (<150)
[2023-09-20 12:47] LABS: TSH reflex Free T4 2.34 uIU/mL (0.32-4.0); Vitamin D 25-OH Total 12.3 ng/mL (>30)
[2023-09-20 12:54] LABS: Creatinine Urine 128.34 mg/dL; Microalbumin Urine < 5.0 mg/L
[2023-09-20 12:55] LABS: Folate 4.5 ng/mL (> or = 4.0); Prostate Specific Antigen Scr < 0.10 ng/mL (<0.05-4.0); Vitamin B12 381 pg/mL (200-900)
== END 2023-09-20 07:34 | disposition home or self-care (01) ==
LOC: HO.WFDLDS 07:33
PROVIDERS: Visit Provider Family Medicine
DX: Z00.00 Encounter for general adult medical examination without abnormal findings (principal); E55.9 Vitamin D deficiency, unspecified; I10 Essential (primary) hypertension; Z12.5 Encounter for screening for malignant neoplasm of prostate; E53.8 Deficiency of other specified B group vitamins
CPT/HCPCS: 36415; 80053; 80061; 81001; 82043; 82306; 82570; 82607; 82746; 84153; 84443; 85025

== ENCOUNTER 2023-09-27 09:41 | Outpatient (AMB) | payer MEDICARE, SELFPAY ==
[2022-12-24 05:51] VITALS: BP 120/58; BP 132/56; BMI 27.8
[2023-09-27 09:46] VITALS: BP 128/64; PULSE 54; O2SAT 99; BMI 27.0
--- NOTE | 2023-09-27 09:46 | A.OFFPC_ITS ---
Vital Signs 09/27/23 09:46 Height 5 ft 4 in Weight 157 lb 8 oz BMI 27.0 BP 128/64 Blood Pressure Location Lt brachial Position Sitting Pulse 54 Pulse Source Pulse Oximeter Pulse Oximetry (%) 99 Oxygen Delivery Method Room Air Intake Visit Reasons: f/u hypertension Intake Note: Patient is here for follow up on hypertension. Patient would like Diclofenac and the Atorvastatin refilled. Allergies No Known Allergies Allergy (Verified 09/27/23 09:47) Medication List - Last Reconciled 09/27/23 by Brett Swift MD aspirin (Adult Low Dose Aspirin) 81 mg PO DAILY atorvastatin 80 mg PO DAILY 90 days cholecalciferol (vitamin D3) 1,250 mcg PO QWEEK 28 days clopidogrel (Plavix) 75 mg PO DAILY diclofenac sodium 1% 4 grams topical QID PRN 30 days hydrochlorothiazide 12.5 mg PO DAILY 90 days losartan 100 mg PO DAILY 3 months Tobacco use date assessed: 08/24/23 Fall risk assessment: No Falls in past year Last assessed Fall Risk: 09/27/23 Dental Screening Dental Screen Date: 05/02/23 HPI f/u hypertension HPI Details 68 y/o male presents to f/u hypertension and CPE-labs. Blood pressure today 128/64. Hx of CAD. He is on losartan 100mg, hydrochlorothiazide 12.5mg daily. Labs were drawn 09/20/23. Reviewed labs with pt. Triglycerides 67. TC 101. LDL 62. HDL low at 26. He is on artovastatin 80mg daily. Vitamin D low at 12.3 ng/mL. [facility] Medical History [place] (myocardial infarction) PVD (peripheral vascular disease) Heart attack High cholesterol Hypertension Surgical History S/P cardiac catheterization Hx of colonoscopy History of esophagogastroduodenoscopy (EGD) History of carotid angioplasty History of prostate surgery History of heart artery stent Family History Maternal Grandfather Colon cancer Social History Housing: House Alcohol intake: current Alcohol intake frequency: a few times a month Patient Tobacco Use Status: Current everyday Tobacco user Tobacco use type: Cigarette Cigarettes Per Day: 2 Years Smoked: 50 e-Cigarette/Vaping Use: Never Used Second Hand Smoke Exposure: No service: No Current occupational status: retired Current occupational exposures/hazards: No Cognitive needs: No Hearing needs: No Vision needs: No Questionnaire Thrive Questionnaire Date Thrive assessed: 05/02/23 VITA-7 AMB Questionnaire VITA-7 Date VITA - 7 assessed: 05/02/23 Source: Developed by Drs. Victoriano Baxter, Odessa Moscoso, Jered Schneider and colleagues, with an educational edwina from [employer]. Physical exam (Primary Care) Vital Signs: Last Vital Signs Pulse 54 09/27/23 09:46 BP 128/64 09/27/23 09:46 Pulse Ox 99 09/27/23 09:46 Oxygen Delivery Method Room Air 09/27/23 09:46 BMI result Body Mass Index 27.0 Tobacco/Smoking Status: Tobacco use Status Tobacco use date assessed 08/24/23 09/27/23 09:50 Patient Tobacco Use Status Current everyday Tobacco 09/27/23 09:50 Tobacco use type Cigarette 09/27/23 09:50 e-Cigarette/Vaping Use Never Used 09/27/23 09:50 Thrive Assessment: Date of Thrive Assessment Date Thrive assessed 05/02/23 09/27/23 09:50 Assessment and Plan Assessment & Plan (1) Essential hypertension: Code(s): I10 - Essential (primary) hypertension Plan: Blood?pressure?is?controlled.??Goal?is?less?than?130/80 Continue?current?medication?regimen (2) CAD (coronary artery disease): Code(s): I25.10 - Atherosclerotic heart disease of [place] coronary artery without angina pectoris Plan: Stable Follow-up?with?Cardiology?as?recommended (3) Low vitamin D level: Code(s): R79.89 - Other specified abnormal findings of blood chemistry Plan: Low?vitamin-D?level Start?vitamin-D?supplement Will?repeat?at?next?visit (4) Hyperlipidemia: Code(s): E78.5 - Hyperlipidemia, unspecified Plan: He?is?on?atorvastatin?and?LDL?cholesterol?is?at?goal?of?less?than?70 HDL?is?too?low-see?below (5) Low HDL (under 40): Code(s): E78.6 - Lipoprotein deficiency Plan: Encouraged?increased?exercise Will?follow-up?with?him?on?how?he?is?doing?with?exercise?at?his?next?visit And?subsequently?we?can?recheck?this. Medications: Refilled diclofenac sodium 1% apply to single knee, ankle, foot; for foot includes sole/toes/top of foot 4 grams topical QID 30 days PRN 100 grams 3RF pain atorvastatin 80 mg PO DAILY 90 days 90 tabs 3RF Coding Level of Care Code Est Pt Level 4 (72788) Diagnoses Essential hypertension I10 CAD (coronary artery disease) I25.10 Low vitamin D level R79.89 Hyperlipidemia E78.5 Low HDL (under 40) E78.6
== END 2023-09-27 10:18 | disposition home or self-care (01) ==
LOC: HO.HMGFM 09:41
PROVIDERS: PCP Family Medicine; Visit Provider Family Medicine
DX: I10 Essential (primary) hypertension (principal); I25.10 Atherosclerotic heart disease of native coronary artery without angina pectoris; R79.89 Other specified abnormal findings of blood chemistry; E78.5 Hyperlipidemia, unspecified; E78.6 Lipoprotein deficiency
CPT/HCPCS: 99214

== ENCOUNTER 2023-10-11 09:46 | Outpatient (AMB) | payer MEDICARE, SELFPAY ==
[2022-12-24 05:51] VITALS: BP 120/58; BP 132/56; BMI 27.8
--- NOTE | 2023-10-11 09:59 | A.OFFVIS_ITS ---
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 He is a patient of Dr. Swift. He is seen with the following urologic conditions - prostate cancer - male stress incontinence PSA continues to remain well controlled States 2-3 liners per day 50% leakage Does have leakage with activity Discussed bladder sling At this point he is not interested Continue surveillance Q 6 month Prostate cancer was low-grade, high volume. Has now been 3 years without recurrence Prostate cancer Shanelle 3 + 3 initial management RALP [id number] 11/22 Prostate cancer initial diagnosis and procedure by Dr. Shahid Rosalie [facility]rology [facility] - 04/25 <0.1, 10/23 <0.1, 06/24 <0.1, 11/24 <0.1, 04/27 <0.1, 09/25 <0.1 No evidence of erections Baseline did use PDE5 Continue 6 monthly follow-up for 10 years REPLACED BY [facility] Medical History [place] (myocardial infarction) PVD (peripheral vascular disease) Heart attack High cholesterol Hypertension Surgical History S/P cardiac catheterization Hx of colonoscopy History of esophagogastroduodenoscopy (EGD) History of carotid angioplasty History of prostate surgery History of heart artery stent Family History Maternal Grandfather Colon cancer Social History Housing: House Alcohol intake: current Alcohol intake frequency: a few times a month Patient Tobacco Use Status: Current everyday Tobacco user Tobacco use type: Cigarette Cigarettes Per Day: 2 Years Smoked: 50 e-Cigarette/Vaping Use: Never Used Second Hand Smoke Exposure: No service: No Current occupational status: retired Current occupational exposures/hazards: No Cognitive needs: No Hearing needs: No Vision needs: No Review of Systems Const Denies chills and Denies fever(s) Card Reports no additional complaints and Denies syncope Resp Denies cough GI Denies abdominal pain and Denies heartburn Reports as per HPI and Denies change in libido Neuro Denies syncope Psych Denies change in libido Endo Denies change in libido Physical Exam Const General: cooperative, healthy appearing, comfortable and no acute distress Orientation/consciousness: patient oriented x3 HEENT Face and sinus: Yes normal facial exam Mouth: moist mucous membranes Neck Neck: Yes normal visual inspection, Yes full ROM and Yes trachea midline Chest Chest palpation & inspection: normal inspection of the chest Resp Effort & Inspection: normal respiratory effort, able to speak in complete sentences and no respiratory distress GI Inspection: Yes normal to inspection Back/Spine/Pelvis Cervical Spine: normal cervical lordosis Thoracic/Lumbar Spine: thoracic and lumbar spine normal to inspection Skin General skin exam: no rashes or lesions noted Neuro General: patient oriented x3, gait normal, tone normal and moves all extremities Extrem General: Yes normal to inspection and Yes capillary refill normal Assessment & Plan Assessment & Plan (1) Prostate cancer: Comment: 11/22 Shanelle 3 + 3 RALP T3aN0 [facility] Code(s): C61 - Malignant neoplasm of prostate Category: Medical (2) Male stress incontinence: Code(s): N39.3 - Stress incontinence (female) (male) Category: Medical Plan Continue surveillance Patient Instructions: Imaging studies, laboratory and physical exam results were discussed and reviewed in detail. No major barriers to patient understanding were identified. An opportunity to ask questions regarding the treatment plan was provided. All questions were answered. The patient expressed understanding and agreement with the above treatment plan. The patient is aware they should contact our office by phone for worsening of their current condition or the appearance of new urologic symptoms. Compliance is encouraged with any medications and followup testing that is ordered. It is a privilege to participate in the urologic care of your patient. If you have any questions or concerns regarding treatment for the above conditions, or other urologic issues, please do not hesitate to contact me. The office telephone contact is [phone]. This note is constructed using voice recognition software. While every effort has been made to ensure accuracy director of cloud services errors may have been included. Yours sincerely, Dr George William MD, [facility]ATT[facility] - Urology Providers of Expert, Compassionate Care for the Genitourinary System Coding Level of Care Code Est Pt Level 3 (61241) Complex EM visit Add On G2211 Diagnoses Prostate cancer C61 Male stress incontinence N39.3
== END 2023-10-11 10:11 | disposition home or self-care (01) ==
PROVIDERS: PCP Family Medicine; Visit Provider Urology
DX: C61 Malignant neoplasm of prostate (principal); N39.3 Stress incontinence (female) (male)
CPT/HCPCS: 99213; G2211

== ENCOUNTER → 2023-10-11 09:46 | Outpatient (BNVA) | payer MEDICARE, SELFPAY ==
[2022-12-24 05:51] VITALS: BP 120/58; BP 132/56; BMI 27.8
== END ==
PROVIDERS: PCP Family Medicine; Visit Provider Urology
DX: C61 Malignant neoplasm of prostate (principal); N39.3 Stress incontinence (female) (male)
CPT/HCPCS: 99212

== ENCOUNTER 2023-12-22 08:15 | Outpatient (REF) | payer MEDICARE, SELFPAY ==
[2022-12-24 05:51] VITALS: BP 120/58; BP 132/56; BMI 27.8
[2023-12-22 11:26] LABS: Appearance Urine Cloudy; Color Urine Yellow; Glucose Urine UA Negative (Negative); Leukocyte Esterase Urine Moderate (2+) (Negative); Nitrite Urine Negative (Negative); PH 5.5 (5.0-9.0); Specific Gravity - Urine 1.015 (1.005-1.025); UMIC TRIGGER UA YES; Urine Blood Negative (Negative); Urine Ketones Negative (Negative); Urine Protein Negative (Neg-Trace)
[2023-12-22 11:30] LABS: Bacteria Urine 3+ (None Seen); Hyaline Casts Urine 0-2 /LPF (0-2); RBC Urine 0-2 /HPF (0-2); Squamous Epithelial Cell Urine 0-2 /HPF (0-2); WBC Urine 21-50 /HPF (0-5)
[2023-12-22 12:11] LABS: Anion Gap 14 (12-20); Blood Urea Nitrogen 27 mg/dL (9-16); Calcium 9.1 mg/dL (8.4-10.2); Carbon Dioxide 23 mmol/L (22-29); Chloride 106 mmol/L (96-108); Estimated Glomerular Filt Rate 53; Glucose Random 88 mg/dL (60-115); Potassium 4.7 mmol/L (3.3-5.1); Sodium 138 mmol/L (135-145)
== END 2023-12-22 08:16 | disposition home or self-care (01) ==
LOC: HO.WFDLDS 08:15
PROVIDERS: Visit Provider Family Medicine
DX: Z00.00 Encounter for general adult medical examination without abnormal findings (principal); R79.89 Other specified abnormal findings of blood chemistry; E55.9 Vitamin D deficiency, unspecified
CPT/HCPCS: 36415; 80048; 81001; 82306

== ENCOUNTER 2024-01-02 08:09 | Outpatient (AMB) | payer MEDICARE, SELFPAY ==
[2022-12-24 05:51] VITALS: BP 120/58; BP 132/56; BMI 27.8
--- NOTE | 2024-01-02 08:35 | A.OFFPC_ITS ---
Vital Signs 01/02/24 08:37 Height 5 ft 4 in Weight 161 lb 2 oz BMI 27.7 BP 110/70 Blood Pressure Location Rt brachial Position Sitting Respiration 16 Pulse 53 Pulse Source Pulse Oximeter Temp 97.8 F Temp Source Oral Pulse Oximetry (%) 98 Oxygen Delivery Method Room Air Intake Visit Reasons: f/u hypertension, chronic conditions Intake Note: follow up for HTN chronic conditions Allergies No Known Allergies Allergy (Verified 01/02/24 08:36) Medication List - Last Reconciled 01/02/24 by Brett Swift MD aspirin (Adult Low Dose Aspirin) 81 mg PO DAILY atorvastatin 80 mg PO DAILY 90 days cholecalciferol (vitamin D3) 1,250 mcg PO QWEEK 28 days clopidogrel (Plavix) 75 mg PO DAILY diclofenac sodium 1% 4 grams topical QID PRN 30 days hydrochlorothiazide 12.5 mg PO DAILY 90 days losartan 100 mg PO DAILY 3 months Tobacco use date assessed: 08/24/23 Dental Screening Dental Screen Date: 05/02/23 HPI f/u hypertension, chronic conditions HPI Details 68 y/o male presents to f/u hypertension , chronic conditions. Blood pressure today 110/70. He is on hydrochlorothiazide 12.5mg, losartan 100mg daily. Had started him on vitamin D supplements. Vitamin D went from 12.3 to 56. He continues taking his artovastatin 80mg daily. HPI Comments History of Present Illness Details Documentation assistance for Brett Swift MD, was provided by Lauri Lyn,? It Security Specialist on 01/02/2024 at 8:47 AM EST. I, Dr. Swift, have read, observed, and verified documentation. [facility] Medical History [place] (myocardial infarction) PVD (peripheral vascular disease) Heart attack High cholesterol Hypertension Surgical History S/P cardiac catheterization Hx of colonoscopy History of esophagogastroduodenoscopy (EGD) History of carotid angioplasty History of prostate surgery History of heart artery stent Family History Maternal Grandfather Colon cancer Social History Housing: House Alcohol intake: current Alcohol intake frequency: a few times a month Patient Tobacco Use Status: Current everyday Tobacco user Tobacco use type: Cigarette Cigarettes Per Day: 2 Years Smoked: 50 e-Cigarette/Vaping Use: Never Used Second Hand Smoke Exposure: No service: No Current occupational status: retired Current occupational exposures/hazards: No Cognitive needs: No Hearing needs: No Vision needs: No Questionnaire Thrive Questionnaire Date Thrive assessed: 05/02/23 VITA-7 AMB Questionnaire VITA-7 Date VITA - 7 assessed: 05/02/23 Source: Developed by Drs. Victoriano Baxter, Odessa Moscoso, Jered Schneider and colleagues, with an educational edwina from [employer]. Review of Systems Const Denies chills, Denies fatigue, Denies fever(s), Denies headache(s) and Denies weakness ENT Denies dizziness and Denies headache(s) Card Denies dyspnea Resp Denies cough, Denies dyspnea, Denies wheezing and Denies other (shortness of breath) Musc Denies numbness and Denies tingling Neuro Denies dizziness, Denies headache(s), Denies numbness, Denies tingling and Denies weakness Psych Denies anxiety and Denies depression Endo Denies fatigue Aller/Immun Denies wheezing Physical exam (Primary Care) Vital Signs: Last Vital Signs Temp 97.8 F 01/02/24 08:37 Pulse 53 01/02/24 08:37 Resp 16 01/02/24 08:37 BP 110/70 01/02/24 08:37 Pulse Ox 98 01/02/24 08:37 Oxygen Delivery Method Room Air 01/02/24 08:37 BMI result Body Mass Index 27.7 Tobacco/Smoking Status: Tobacco use Status Tobacco use date assessed 08/24/23 01/02/24 08:40 Patient Tobacco Use Status Current everyday Tobacco 01/02/24 08:40 Tobacco use type Cigarette 01/02/24 08:40 e-Cigarette/Vaping Use Never Used 01/02/24 08:40 Thrive Assessment: Date of Thrive Assessment Date Thrive assessed 05/02/23 01/02/24 08:40 Const General: well developed; No acute distress Nutritional Appearance: well nourished Orientation/consciousness: patient oriented x3 HENMT Head: Yes normocephalic and Yes atraumatic Eyes General: appearance normal, both eyes and all related structures Pupils: Equal, round and reactive pupils present EOM: EOMs intact bilaterally Resp Effort & Inspection: normal respiratory effort Auscultation: clear to auscultation bilaterally Cardio Rate: regular rate Rhythm: regular rhythm Heart sounds: S1 normal heart sound present, S2 normal heart sound present, no gallops, no murmurs and no rubs Neuro General: patient oriented x3 and gait normal Cranial nerves: Yes Equal, round and reactive pupils present Psych Affect: normal affect Assessment and Plan Assessment & Plan (1) Essential hypertension: Code(s): I10 - Essential (primary) hypertension Plan: Hold.??Goal?is?less?than?130/80 Continue?current?medications (2) CAD (coronary artery disease): Code(s): I25.10 - Atherosclerotic heart disease of [place] coronary artery without angina pectoris Plan: Stable (3) Low vitamin D level: Code(s): R79.89 - Other specified abnormal findings of blood chemistry Plan: Vitamin-D?level?had?been?quite?low?and?he?has?repeated?this?after?using?vitamin- D?supplement. Now?at?56?which?is?above?goal?of?greater?than?30 Will?continue?the (4) Low HDL (under 40): Code(s): E78.6 - Lipoprotein deficiency Plan: Encouraged?exercise (5) Hyperlipidemia: Code(s): E78.5 - Hyperlipidemia, unspecified Plan: Reviewed?lipids?with?patient. LDL?cholesterol?is?fairly?controlled?on?pravastatin? - still?a?little?above?goal?of?less?than?70. Will?repeat?next?spring Continue?pravastatin?80?mg?daily Medications: Refilled cholecalciferol (vitamin D3) 1,250 mcg PO QWEEK 28 days 4 caps 4RF Coding Level of Care Code Est Pt Level 4 (80828) Diagnoses Essential hypertension I10 CAD (coronary artery disease) I25.10 Low vitamin D level R79.89 Low HDL (under 40) E78.6 Hyperlipidemia E78.5
[2024-01-02 08:37] VITALS: BP 110/70; PULSE 53; RESP 16; TEMP 36.6; O2SAT 98; BMI 27.7
== END 2024-01-02 08:55 | disposition home or self-care (01) ==
PROVIDERS: PCP Family Medicine; Visit Provider Family Medicine
DX: I10 Essential (primary) hypertension (principal); I25.10 Atherosclerotic heart disease of native coronary artery without angina pectoris; R79.89 Other specified abnormal findings of blood chemistry; E78.6 Lipoprotein deficiency; E78.5 Hyperlipidemia, unspecified

== ENCOUNTER → 2024-01-02 08:09 | Outpatient (BNVA) | payer MEDICARE, SELFPAY ==
[2022-12-24 05:51] VITALS: BP 120/58; BP 132/56; BMI 27.8
== END ==
PROVIDERS: PCP Family Medicine; Visit Provider Family Medicine
DX: I10 Essential (primary) hypertension (principal); I25.10 Atherosclerotic heart disease of native coronary artery without angina pectoris; R79.89 Other specified abnormal findings of blood chemistry; E78.6 Lipoprotein deficiency; E78.5 Hyperlipidemia, unspecified
CPT/HCPCS: 99212

== ENCOUNTER 2024-02-20 15:02 | Outpatient (AMB) | payer MEDICARE, SELFPAY ==
[2022-12-24 05:51] VITALS: BP 120/58; BP 132/56; BMI 27.8
--- NOTE | 2024-02-20 15:15 | MHC.OFFVIS ---
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 Allergies No Known Allergies Allergy (Verified 02/20/24 15:18) Medication List - Last Reconciled 02/20/24 by Kae Medel NP-C aspirin (Adult Low Dose Aspirin) 81 mg PO DAILY atorvastatin 80 mg PO DAILY 90 days cholecalciferol (vitamin D3) 1,250 mcg PO QWEEK 28 days diclofenac sodium 1% 4 grams topical QID PRN 30 days hydrochlorothiazide 12.5 mg PO DAILY 90 days losartan 100 mg PO DAILY 3 months HPI HPI r/s 6 mos followup / PSA: Details: Ilya is a 68-year-old male with past medical history of hypertension, hyperlipidemia, smoking, peripheral vascular disease, CAD, RCA stent, who had NSTEMI 09/2022 with GALI placed to OM 1. Today he reports he has been doing well since his last visit in July. 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 He attends record shows. He is still able to climb stairs without any concerning symptoms. He denies any chest discomfort at rest or with activity. No shortness of breath, palpitations, presyncope, syncope, PND, orthopnea or edema. Happy with how he is feeling. He is taking his meds as directed. No bleeding issues reported. [facility] Medical History MS (myocardial infarction) PVD (peripheral vascular disease) Heart attack High cholesterol Hypertension Surgical History S/P cardiac catheterization Hx of colonoscopy History of esophagogastroduodenoscopy (EGD) History of carotid angioplasty History of prostate surgery History of heart artery stent Family History Maternal Grandfather Colon cancer Social History Housing: House Alcohol intake: current Alcohol intake frequency: a few times a month Patient Tobacco Use Status: Current everyday Tobacco user Tobacco use type: Cigarette Cigarettes Per Day: 2 Years Smoked: 50 e-Cigarette/Vaping Use: Never Used Second Hand Smoke Exposure: No service: No Current occupational status: retired Current occupational exposures/hazards: No Cognitive needs: No Hearing needs: No Vision needs: No Review of Systems Const All systems reviewed & are unremarkable except as noted in HPI and below ENT Denies dizziness Card Denies chest pain, Denies chest pain at rest, Denies chest pain with activity, Denies rapid heart rate, Denies pedal edema, Denies edema, Denies leg edema, Denies lightheadedness, Denies palpitations, Denies dyspnea, Denies dyspnea on exertion and Denies orthopnea Resp Denies cough, Denies dyspnea and Denies dyspnea on exertion GI Denies hematochezia and Denies change in stool character Musc Denies abnormal gait, Denies limited range of motion, Denies muscle cramps, Denies muscle weakness, Denies numbness, Denies radiating pain into limb, Denies stiffness and Denies tingling Neuro Denies abnormal gait, Denies dizziness, Denies numbness and Denies tingling Endo Denies palpitations Physical Exam Vital Signs: Last Vital Signs Pulse 60 02/20/24 15:16 BP 110/40 L 02/20/24 15:16 BMI result Body Mass Index 27.5 Const General: cooperative, healthy appearing, comfortable and no acute distress Orientation/consciousness: patient oriented x3 Neck Neck: Yes normal visual inspection and Yes no JVD Resp Effort & Inspection: normal respiratory effort Auscultation: clear to auscultation bilaterally, no crackles, no rales, no rhonchi and no wheezes Cardio Jugular venous distension: no JVD Rate: regular rate Rhythm: regular rhythm Heart sounds: S1 normal heart sound present, S2 normal heart sound present, no murmurs and no rubs Neuro General: patient oriented x3 Extrem General: Yes normal to inspection, No no pedal edema and No calf tenderness Psych Appearance: grossly normal Mental Status: mental status grossly normal Speech and movement: Normal speech and movement present Office Procedures EKG Details: Today, read by me, normal sinus rhythm, left axis deviation, inferior infarct, ST and T-wave abnormality before through V6, same as prior EKG, rate 60, QTC 398 millisecond [id number], Complete Assessment & Plan Assessment & Plan (1) NSTEMI (non-ST elevated myocardial infarction): Code(s): I21.4 - Non-ST elevation (NSTEMI) myocardial infarction Category: Medical Plan: [facility] [place] 09/2022 for mid chest burning which he thought was heartburn occurring intermittently for a few days prior to admission. He ruled in for NSTEMI and underwent urgent cardiac catheterization showing severe stenosis of OM1, GALI was placed. Echocardiogram was done on 11/09/2022 showing EF 65%, basal inferior, basal inferior lateral akinetic overall no change from 07/29/2021. He was taken off metoprolol due to sinus bradycardia. A follow-up Holter was done on 12/20/2022 for 3 days showed sinus bradycardia/sinus rhythm, average heart rate 56, 66 % of the time heart rate less than 60, frequent PVCs 2.4% of time. He stopped Plavix 1 year post stent, October 2023. He currently denies any anginal sounding symptoms. His EKG today shows sinus rhythm with inferior infarct, ST and T-wave abnormality V4 through V6 which is the same as prior EKG, rate 60. Continue aspirin indefinitely. Continue high-dose atorvastatin with ideal LDL goal less than 70. Labs done 09/20/2023 showed LDL 62. Continue losartan, hydrochlorothiazide for good blood pressure control. Will keep off of beta-perlita. Cardiology follow-up in 6 months, sooner if needed. (2) S/P cardiac catheterization: Comment: 09/23/22 severe mid OM1 stenosis, PCI to OM1 Code(s): Z98.890 - Other specified postprocedural states Category: Surgical Plan: As above (3) Essential hypertension: Code(s): I10 - Essential (primary) hypertension Category: Medical Plan: Well controlled at present, normal today 110/40 (4) CAD (coronary artery disease): Code(s): I25.10 - Atherosclerotic heart disease of [place] coronary artery without angina pectoris Category: Medical Plan: As above (5) Stented coronary artery: Code(s): Z95.5 - Presence of coronary angioplasty implant and graft Category: Surgical Plan: History of RCA stent. Also newer OM1 stent. (6) Abnormal EKG: Code(s): R94.31 - Abnormal electrocardiogram [ECG] [EKG] Category: Medical Plan: Inferior lateral T-wave inversions. No changes between prior EKG and one done last visit and today. Asymptomatic Plan Time spent on chart review, documentation, interview and assessment Coding Level of Care Code Est Pt Level 4 (40129) Complex EM visit Add On G2211 Diagnoses NSTEMI (non-ST elevated myocardial infarction) I21.4 S/P cardiac catheterization Z98.890 Essential hypertension I10 CAD (coronary artery disease) I25.10 Stented coronary artery Z95.5 Abnormal EKG R94.31 CPT Codes EKG - CPT: [id number], Complete ([id number]) Time Spent (min) 30
[2024-02-20 15:16] VITALS: BP 110/40; PULSE 60; BMI 27.5
== END 2024-02-20 15:36 | disposition home or self-care (01) ==
PROVIDERS: PCP Family Medicine; Visit Provider Nurse Practitioner Family
DX: I21.4 Non-ST elevation (NSTEMI) myocardial infarction (principal); Z98.890 Other specified postprocedural states; I10 Essential (primary) hypertension; I25.10 Atherosclerotic heart disease of native coronary artery without angina pectoris; Z95.5 Presence of coronary angioplasty implant and graft; R94.31 Abnormal electrocardiogram [ECG] [EKG]
CPT/HCPCS: 93010; 99214; G2211

== ENCOUNTER → 2024-02-20 15:02 | Outpatient (BNVA) | payer MEDICARE, SELFPAY ==
[2022-12-24 05:51] VITALS: BP 120/58; BP 132/56; BMI 27.8
== END ==
PROVIDERS: PCP Family Medicine; Visit Provider Nurse Practitioner Family
DX: I10 Essential (primary) hypertension (principal); I73.9 Peripheral vascular disease, unspecified; I25.10 Atherosclerotic heart disease of native coronary artery without angina pectoris; I25.2 Old myocardial infarction; E78.5 Hyperlipidemia, unspecified; R94.31 Abnormal electrocardiogram [ECG] [EKG]; F17.210 Nicotine dependence, cigarettes, uncomplicated; Z95.5 Presence of coronary angioplasty implant and graft; Z98.890 Other specified postprocedural states
CPT/HCPCS: 93005; 99212

== ENCOUNTER 2024-04-06 09:56 | Outpatient (REF) | payer MEDICARE, SELFPAY ==
[2022-12-24 05:51] VITALS: BP 120/58; BP 132/56; BMI 27.8
[2024-04-06 12:12] LABS: Prostate Specific Antigen < 0.10 ng/mL (<0.05-4.0)
== END 2024-04-06 09:57 | disposition home or self-care (01) ==
LOC: HO.WFDLDS 09:56
PROVIDERS: Visit Provider Urology
DX: Z12.5 Encounter for screening for malignant neoplasm of prostate (principal)
CPT/HCPCS: 36415; 84153

== ENCOUNTER 2024-04-12 08:57 | Outpatient (AMB) | payer MEDICARE, SELFPAY ==
[2022-12-24 05:51] VITALS: BP 120/58; BP 132/56; BMI 27.8
--- NOTE | 2024-04-12 08:57 | A.OFFVIS_ITS ---
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 He is a patient of Dr. Swift. He is seen with the following urologic conditions - prostate cancer - male stress incontinence Telemedicine Evaluation 15 min Consultation [facility] Aidan Video PSA continues to remain well controlled States 2-3 liners per day 50% leakage Does have leakage with activity Discussed bladder sling At this point he is not interested Continue surveillance Q 6 month Prostate cancer was low-grade, high volume. Prostate cancer Shanelle 3 + 3 initial management RALP pT3aN0 - 11/22 Prostate cancer initial diagnosis and procedure by Dr. Shahid [facility] - 04/25 <0.1, 10/23 <0.1, 06/24 <0.1, 11/24 <0.1, 04/27 <0.1, 09/25 <0.1, 04/28 <0.1 No evidence of erections Baseline did use PDE5 Continue 6 monthly follow-up for 10 years [facility] [place] Medical History [place] (myocardial infarction) PVD (peripheral vascular disease) Heart attack High cholesterol Hypertension Surgical History S/P cardiac catheterization Hx of colonoscopy History of esophagogastroduodenoscopy (EGD) History of carotid angioplasty History of prostate surgery History of heart artery stent Family History Maternal Grandfather Colon cancer Social History Housing: House Alcohol intake: current Alcohol intake frequency: a few times a month Patient Tobacco Use Status: Current everyday Tobacco user Tobacco use type: Cigarette Cigarettes Per Day: 2 Years Smoked: 50 e-Cigarette/Vaping Use: Never Used Second Hand Smoke Exposure: No service: No Current occupational status: retired Current occupational exposures/hazards: No Cognitive needs: No Hearing needs: No Vision needs: No Review of Systems Const All systems reviewed & are unremarkable except as noted in HPI and below Reports no additional complaints Resp Reports no additional complaints GI Reports no additional complaints Reports as per HPI Musc Reports no additional complaints Physical Exam Telemedicine evaluation Appropriate responses Regular breathing rate and rhythm HEENT Head: Yes normal to inspection Ears: hearing grossly normal bilaterally Eyes General: appearance normal, both eyes and all related structures Neck Neck: Yes normal visual inspection Chest Chest palpation & inspection: normal inspection of the chest Resp Effort & Inspection: normal respiratory effort and able to speak in complete sentences Telehealth Telehealth Telehealth Platform: [place] Location of provider rendering services: practice address Location of patient: address on file Patient Identification confirmed using: Name, : Yes Telehealth method: video Patient verbally consented to treatment: Yes Patient verbally consented to billing insurance company: Yes Patient informed of any privacy concerns related to visit: Yes Minutes spent on Phone/Video with Pt.: 15 Assessment & Plan Assessment & Plan (1) Prostate cancer: Comment: 11/22 Paola 3 + 3 RALP [id number] [facility] Code(s): C61 - Malignant neoplasm of prostate Category: Medical (2) Male stress incontinence: Code(s): N39.3 - Stress incontinence (female) (male) Category: Medical Plan Six-month follow-up PSA Orders: Orders Prostate Specific Antigen 04/06/24 Z12.5 - Encounter for screening for malignant neoplasm of prostate Prostate Specific Antigen 6 Months C61 - Malignant neoplasm of prostate Patient Instructions: Imaging studies, laboratory and physical exam results were discussed and reviewed in detail. No major barriers to patient understanding were identified. An opportunity to ask questions regarding the treatment plan was provided. All questions were answered. The patient expressed understanding and agreement with the above treatment plan. The patient is aware they should contact our office by phone for worsening of their current condition or the appearance of new urologic symptoms. Compliance is encouraged with any medications and followup testing that is ordered. It is a privilege to participate in the urologic care of your patient. If you have any questions or concerns regarding treatment for the above conditions, or other urologic issues, please do not hesitate to contact me. The office telephone contact is [phone]. This note is constructed using voice recognition software. While every effort has been made to ensure accuracy deaf interpreter errors may have been included. Yours sincerely, Dr George William MD, MATTY [facility] - Urology Providers of Expert, Compassionate Care for the Genitourinary System Coding Level of Care Code Tele Est Pt Level 3 (11655) Diagnoses Prostate cancer C61 Male stress incontinence N39.3
== END 2024-04-12 09:56 | disposition home or self-care (01) ==
LOC: HO.HUSH 08:57
PROVIDERS: PCP Family Medicine; Visit Provider Urology
DX: C61 Malignant neoplasm of prostate (principal); N39.3 Stress incontinence (female) (male)
CPT/HCPCS: 99213

== ENCOUNTER 2024-05-22 10:21 | Outpatient (REF) | payer MEDICARE, SELFPAY ==
[2022-12-24 05:51] VITALS: BP 120/58; BP 132/56; BMI 27.8
--- NOTE | ~2024-05-22 | US_ITS ---
EXAMINATION: US EXTRACRANIAL CAROTID DUPLEX, BILATERAL CLINICAL INFORMATION: Status post endarterectomy, right side. COMPARISON: June 16, 2021. TECHNIQUE: Real-time ultrasound and Doppler techniques (integrating B-mode 2-D vascular images, Doppler spectral analysis and color-flow Doppler imaging) were utilized to interrogate the extracranial carotid arteries, the vertebral arteries and proximal subclavian arteries bilaterally. The degree of stenosis is determined by criteria similar to NASCET. FINDINGS: Right Side: 1. There is no atherosclerotic plaque seen in the bifurcation/proximal ICA region. 2. The common carotid artery PSV proximally is 97 cm/s and distally 82 cm/s. 3. The proximal internal carotid artery velocities are 82-115 cm/s systolic and 22 cm/s diastolic. 4. The proximal external carotid artery PSV is 190 cm/s. 5. The vertebral artery shows antegrade flow. 6. The subclavian artery waveforms are triphasic. Left Side: 1. There is irregular soft atherosclerotic plaque seen in the bifurcation/proximal ICA region. 2. The common carotid artery PSV proximally is 94 cm/s and distally 85 cm/s. 3. The proximal internal carotid artery velocities are 117 cm/s systolic and 23 cm/s diastolic. 4. The proximal external carotid artery PSV is 104 cm/s. 5. The vertebral artery shows antegrade flow. 6. The subclavian artery waveforms are triphasic. US/US carotid duplex BI IMPRESSION: 1. RIGHT: Status post endarterectomy without hemodynamically significant stenosis by ultrasound criteria. 2. LEFT: Soft plaque. 0-49% stenosis by ultrasound criteria Electronically signed by: Boom Rowley MD 05/22/2024 03:21 PM EST
--- NOTE | ~2024-05-22 | US_ITS ---
EXAMINATION: US NONINVASIVE ASSESSMENT OF THE BOTH LOWER EXTREMITY WITH ARTERIAL DUPLEX AND ANKLE BRACHIAL INDICES (ABIS) CLINICAL INFORMATION: Peripheral vascular disease. COMPARISON: None available. TECHNIQUE: Duplex Doppler techniques with waveform analysis and measurement of velocities in the common femoral, profunda femoris, superficial femoral, popliteal and tibial arteries were performed. In addition, ankle pulse volume recordings, ankle pressure measurements and ankle brachial indices were obtained of the both lower extremity arterial system. The study was performed only at rest. FINDINGS: NONINVASIVE ASSESSMENT OF THE ARTERIES OF BILATERAL LOWER EXTREMITIES WITH ABIs: RIGHT LEG: Ankle-brachial index: 0.76 Ankle PVR: Abnormal waveforms. LEFT LEG: Ankle-brachial index: 0.43 Left ankle PVR: Abnormal waveforms. NATALYA Reference: 0.9 - 1.4 = normal - no significant arterial disease 0.7 - 0.89 = mild peripheral arterial disease 0.51 - 0.69 = moderate peripheral arterial disease 0.50 = severe peripheral arterial disease RIGHT LOWER EXTREMITY DUPLEX ULTRASOUND: Common femoral artery: 215 cm/s. Triphasic waveforms. Profunda femoris artery: 188 cm/s. Monophasic waveforms. Superficial femoral artery (proximal): 137 cm/s. Monophasic waveform. Superficial femoral artery (mid): Stent, 72 cm/s. Monophasic waveform. Superficial femoral artery (distal): Stent, 60 cm/s. Monophasic waveform. Popliteal artery: 45 cm/s Biphasic waveform. Posterior tibial artery: 21 cm/s Monophasic waveform. Anterior tibialis artery: 52 cm/s. Monophasic waveform. Dorsalis pedis artery: 18 cm/s. Monophasic waveform. LEFT LOWER EXTREMITY DUPLEX ULTRASOUND: Common femoral artery: 170 cm/s. Monophasic waveform. Profunda femoris artery: 140 cm/s. Monophasic waveform. Superficial femoral artery (proximal): Included cm/s. Superficial femoral artery (mid): Occluded cm/s. Superficial femoral artery (distal): Occluded cm/s. Popliteal artery: 16 cm/s Monophasic waveform. Posterior tibial artery: 25 cm/s Monophasic waveform. Anterior tibialis artery: 11 cm/s. Monophasic waveform. Dorsalis pedis artery: 6 cm/s. Monophasic waveform. US/US arterial duplex BI w/ NATALYA IMPRESSION: Occluded left superficial femoral artery with trickle flow to the dorsalis pedis artery. Stenting and the right superficial femoral artery is patent. Severe inflow disease right lower extremity. Electronically signed by: Boom Rowley MD 05/22/2024 03:47 PM TIERNEY RP
--- OUTSIDE RECORDS SUMMARY | 2024-05-22 11:20 | XMS_ITS | Patient Health Record ---
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 Name Role Phone NO PCP, No Primary Care Provider Evangelista Goss Unavailable [phone] ALLERGIES Allergen (clinical drug ingredient) Drug/Non Drug Allergy documented on EMR Reaction Allergy Type Onset Date Status lisinopril lisinopril cough Drug Allergy Activ e REASON FOR REFERRAL No Information MEDICATIONS Medication SIG (Take, Route, Frequency, Duration) Notes Start Date End Date Status Metoprolol Tartrate 25 MG TAKE 1/2 TABLE T BY MOUTH TWICE DAILY 90 for 90 Active Sildenafil Citrate 20 MG 1 tablet Orally Three times a day Active Atorvastatin Calcium 80 MG TAKE 1 TABLET BY MOUTH EVERY DAY for 90 last refill. pt. needs appt. Active hydroCHLOROthiazide 25 MG 1 tablet in th e morning Orally Once a day for 90 days Active Cozaar 25 MG 1 tablet Orally Once a day for 90 Active Aspirin 81 MG 1 tablet Orally Once a day for 30 day(s) Active SOCIAL HISTORY Tobacco Use: Social History Observation Description Date Details (start date - stop date) Former Smoker NA - NA Sex Assigned At : Social History Observation Description Sex Assigned At Unknown Tobacco Use/Smoking Question Answer Notes Are you a former smoker How long has it been since you last smoked? 1-5 years Section Notes: Caffeine: 1-2 cups of coffee daily Alcohol: rarely Caffeine: 1-2 cups of coffee daily Alcohol: rarely PROBLEMS Problem Type ICD Code Onset Dates Problem Status W/U Status Risk SNOMED Code Notes Problem Ischemic cardiomyopathy (I25.5) Active confirmed Ischemic cardiomyopathy (394258144) Problem Syncope and collapse (R55) Active confirmed Syncope and collapse (916278112) Problem Cardiogenic shock (R57.0) Active confirmed Cardiogenic apolinar ck (44227978) Problem Dyslipidemia (E78.5) Active confirmed Dyslipidemia (077907507) Problem Coronary artery disease involving [place] coronary artery of [place] heart, angina presence unspecified (I25.10) Active confirmed Atherosclerotic heart disease of [place] coronary artery without angina pectoris ([id number]) Problem PVD (peripheral vascular disease) (I73.9) Active confirmed Peripheral vascular disease (600973345) Problem Inferior myocardial infarction (I21.19) Active confirmed PLAN OF TREATMENT Future Test Test Name Order Date Lipid Profile 12/28/2017 Stress Sestamibi Myocardial Perfusion Do butamine 08/03/2019 Lipid Profile 08/03/2019 Insurance Providers Payer Name Payer Address Payer Phone Subscriber Number Group Number Insured Name Patient Relationship to Insured Coverage Start Date Coverage End Date [employer]P [employer] [address] [place] [address] [id number] Ilya Corbett Self - patient is the insured 0 MEDICAL (GENERAL) HISTORY Medical History History ICD Code CAD s/p admission for inferior wall [place] coomp licated by RV [place] with shock Hypertension Surgical History Surgery Date(Month/Year) PCI 12/2016 PCI RCA GALI x 2 12/2016 Hospitalization History Reason Date(Month/Year) [facility]. 06/26- carotid arter y's
== END 2024-05-22 10:22 | disposition home or self-care (01) ==
LOC: HO.US 10:21
PROVIDERS: PCP Family Medicine; Visit Provider Surgery Vascular Surgery
DX: I73.9 Peripheral vascular disease, unspecified (principal); I65.23 Occlusion and stenosis of bilateral carotid arteries
CPT/HCPCS: 93880; 93922; 93925

== ENCOUNTER → 2024-05-22 10:25 | Outpatient (BNV) | payer MEDICARE, SELFPAY ==
[2022-12-24 05:51] VITALS: BP 120/58; BP 132/56; BMI 27.8
== END ==
PROVIDERS: PCP Family Medicine; Visit Provider Radiology Diagnostic Radiology
DX: I73.9 Peripheral vascular disease, unspecified (principal); I65.22 Occlusion and stenosis of left carotid artery
CPT/HCPCS: 93880; 93922; 93925

== ENCOUNTER 2024-05-24 09:31 | Outpatient (AMB) | payer MEDICARE, SELFPAY ==
[2022-12-24 05:51] VITALS: BP 120/58; BP 132/56; BMI 27.8
--- NOTE | 2024-05-24 09:57 | MHC.PC.OV ---
Vital Signs 05/24/24 10:03 Height 5 ft 4 in Weight 163 lb 4 oz BMI 28.0 BP 100/50 L Blood Pressure Location Lt brachial Position Sitting Respiration 14 Pulse 55 Pulse Source Pulse Oximeter Temp 97.9 F Temp Source Oral Pulse Oximetry (%) 99 Oxygen Delivery Method Room Air Intake Visit Reasons: f/u hypertension, chronic conditions Intake Note: b/p follow up Typewriter Aligner Required: No Allergies No Known Allergies Allergy (Verified 05/24/24 09:58) Medication List - Last Reconciled 05/24/24 by Brett Swift MD aspirin (Adult Low Dose Aspirin) 81 mg PO DAILY atorvastatin 80 mg PO DAILY 90 days cholecalciferol (vitamin D3) 1,250 mcg PO QWEEK 28 days diclofenac sodium 1% 4 grams topical QID PRN 30 days hydrochlorothiazide 12.5 mg PO DAILY 90 days losartan 100 mg PO DAILY 3 months Tobacco use date assessed: 08/24/23 Dental Screening Dental Screen Date: 05/02/23 HPI f/u hypertension, chronic conditions HPI Details 69 y/o male presents to f/u hypertension, chronic conditions. Blood pressure today 100/50, 55p. He is on losartan 100mg, HCTZ 12.5mg. Continues taking artovastatin. [facility] Medical History [place] (myocardial infarction) PVD (peripheral vascular disease) Heart attack High cholesterol Hypertension Surgical History S/P cardiac catheterization Hx of colonoscopy History of esophagogastroduodenoscopy (EGD) History of carotid angioplasty History of prostate surgery History of heart artery stent Family History Maternal Grandfather Colon cancer Social History Housing: House Alcohol intake: current Alcohol intake frequency: a few times a month Patient Tobacco Use Status: Current everyday Tobacco user Tobacco use type: Cigarette Cigarettes Per Day: 2 Years Smoked: 50 e-Cigarette/Vaping Use: Never Used Second Hand Smoke Exposure: No service: No Current occupational status: retired Current occupational exposures/hazards: No Cognitive needs: No Hearing needs: No Vision needs: No Questionnaire PHQ-9 Over the last 2 weeks, how often have you been bothered by any of the following problems? 1. Little interest or pleasure in doing things: not at all 2. Feeling down, depressed, or hopeless: not at all 3. Trouble falling or staying asleep, or sleeping too much: not at all 4. Feeling tired or having little energy: not at all 5. Poor appetite or overeating: not at all 6. Feeling bad about yourself - or that you are a failure or have let yourself or your family down: not at all 7. Trouble concentrating on things, such as reading the newspaper or watching television: not at all 8. Moving or speaking so slowly that other people could have noticed. Or the opposite - being so fidgety or restless that you have been moving around a lot more than usual: not at all 9. Thoughts that you would be better off or of hurting yourself in some way: not at all Total score: 0 Source: Developed by Drs. Victoriano Baxter, Odessa Moscoso, Jered Schneider and colleagues, with an educational edwina from [employer]. Thrive Questionnaire Date Thrive assessed: 04/18/24 I am a: Patient What is your living situation today?: I have a steady place to live Within the past 12 months, did the food you bought not last and you didn't have the money to get more?: I choose not to answer this question Within the past 12 months, did you worry whether your food would run out before you got money to buy more?: I choose not to answer this question Do you have trouble paying for medicines?: No Do you have trouble getting transportation to medical appointments?: No Do you have trouble paying your heating and electricity bill?: No Do you have trouble taking care of your child, family member or friend?: No Do you have trouble with day-to-day activities such as bathing, preparing meals, shopping, managing finances, etc.?: No Are you currently unemployed and looking for a job?: No Are you interested in more education?: No Please select the resources that you would like help with: None Currently or been in a relationship where the following occur: No concerns reported THRIVE Score: 0 AUDIT C Alcohol Use Questionnaire (AUDIT-C) 3. How often do you have six or more drinks on one occasion?: Never Total Score: 0 VITA-7 AMB Questionnaire VITA-7 Date VITA - 7 assessed: 05/02/23 Feeling nervous, anxious, or on edge: 0 = Not at all Not being able to stop or control worryin = Not at all Worrying too much about different things: 0 = Not at all Trouble relaxin = Not at all Being so restless that it is hard to sit still: 0 = Not at all Becoming easily annoyed or irritable: 0 = Not at all Feeling afraid as if something awful might happen: 0 = Not at all Total VITA-7 score (0-4 normal; 5-9 mild; 10-14 moderate; 15-21 severe): 0 Source: Developed by Drs. Victoriano Baxter, Odessa Moscoso, Jered Schneider and colleagues, with an educational edwina from [employer]. Review of Systems Const Denies chills, Denies fatigue, Denies fever(s), Denies headache(s) and Denies weakness ENT Denies dizziness and Denies headache(s) Card Denies chest pain, Denies lightheadedness, Denies dyspnea and Denies other (Palpitations) Resp Denies cough, Denies dyspnea, Denies wheezing and Denies other ( shortness of breath) Musc Denies numbness and Denies tingling Neuro Denies dizziness, Denies headache(s), Denies numbness, Denies tingling, Denies paresthesias and Denies weakness Psych Denies anxiety and Denies depression Endo Denies fatigue Aller/Immun Denies wheezing Physical exam (Primary Care) Vital Signs: Last Vital Signs Temp 97.9 F 05/24/24 10:03 Pulse 55 05/24/24 10:03 Resp 14 05/24/24 10:03 BP 100/50 L 05/24/24 10:03 Pulse Ox 99 05/24/24 10:03 Oxygen Delivery Method Room Air 05/24/24 10:03 BMI result Body Mass Index 28.0 Tobacco/Smoking Status: Tobacco use Status Tobacco use date assessed 08/24/23 05/24/24 10:06 Patient Tobacco Use Status Current everyday Tobacco 05/24/24 10:06 Tobacco use type Cigarette 05/24/24 10:06 e-Cigarette/Vaping Use Never Used 05/24/24 10:06 PHQ-9: PHQ-9 Score PHQ-9: Total score 0 05/24/24 10:33 Thrive Assessment: Date of Thrive Assessment Date Thrive assessed 04/18/24 05/24/24 10:06 Currently or been in a relationship where the following occur: No concerns reported Const General: no acute distress and well developed Nutritional Appearance: well nourished Orientation/consciousness: patient oriented x3 HENMT Head: Yes normocephalic and Yes atraumatic Eyes General: appearance normal, both eyes and all related structures Pupils: Equal, round and reactive pupils present EOM: EOMs intact bilaterally Resp Effort & Inspection: normal respiratory effort Auscultation: clear to auscultation bilaterally Cardio Rate: regular rate Rhythm: regular rhythm Heart sounds: S1 normal heart sound present, S2 normal heart sound present, no gallops, no murmurs and no rubs Neuro General: patient oriented x3 and gait normal Cranial nerves: Yes Equal, round and reactive pupils present Psych Affect: normal affect Coding Level of Care Code Est Pt Level 3 (11227) Diagnoses Essential hypertension I10 Hyperlipidemia E78.5 CAD (coronary artery disease) I25.10 Assessment & Plan Assessment & Plan (1) Essential hypertension: Code(s): I10 - Essential (primary) hypertension Category: Medical Plan: Blood?pressure?is?controlled.??Goal?is?less?than?130/80 Continue?current?medications Hydrate?well?and?get?regular?meals (2) Hyperlipidemia: Code(s): E78.5 - Hyperlipidemia, unspecified Category: Medical Plan: He?continues?on?high?dose?atorvastatin Will?recheck?lipids?prior?to?next?visit (3) CAD (coronary artery disease): Code(s): I25.10 - Atherosclerotic heart disease of [place] coronary artery without angina pectoris Category: Medical Plan: Stable Follow-up?with?Cardiology?as?recommended Orders: Orders Lipid Panel Today E78.5 - Hyperlipidemia, unspecified, Z00.00 - Encounter for general adult medical examination without abnormal findings Microalbumin, Random (w Creat) Today I10 - Essential (primary) hypertension Comprehensive [place]. Panel Fast Today E78.5 - Hyperlipidemia, unspecified, Z00.00 - Encounter for general adult medical examination without abnormal findings Vitamin D 25-OH Total Today E55.9 - Vitamin D deficiency, unspecified, R79.89 - Other specified abnormal findings of blood chemistry
[2024-05-24 10:03] VITALS: BP 100/50; PULSE 55; RESP 14; TEMP 36.6; O2SAT 99; BMI 28.0
--- OUTSIDE RECORDS SUMMARY | 2024-05-24 10:18 | XMS_ITS | Patient Health Record ---
Author Organization [facility] [place] [address] Care Team Providers Care Baton Twirler Name Role Phone NO PCP, No Primary Care Provider Evangelista Goss Unavailable [phone] ALLERGIES Allergen (clinical drug ingredient) Drug/Non Drug [...] Ischemic cardiomyopathy (I25.5) Active confirmed Ischemic cardiomyopathy (597252162) Problem Syncope and collapse (R55) Active confirmed Syncope and collapse (399125923) Problem Cardiogenic shock (R57.0) Active confirmed Cardiogenic apolinar ck (61344314) Problem Dyslipidemia (E78.5) Active confirmed Dyslipidemia (946862389) Problem Coronary artery disease involving [place] coronary artery of [place] heart, angina presence unspecified (I25.10) Active confirmed Atherosclerotic heart disease of [place] coronary artery without angina pectoris (194921057012686) Problem PVD (peripheral vascular disease) (I73.9) Active confirmed Peripheral vascular disease (389086479) Problem Inferior myocardial infarction (I21.19) Active confirmed PLAN OF TREATMENT Future Test Test Name Order Date Lipid Profile 12/28/2017 Stress Sestamibi Myocardial Perfusion Do butamine 08/03/2019 Lipid Profile 08/03/2019 Insurance Providers Payer Name Payer Address Payer Phone Subscriber Number Group Number Insured Name Patient Relationship to Insured Coverage Start Date Coverage End Date MRP [employer] [address] [place] [address] [phone] [id number] Ilya Corbett Self - patient is the insured 0 MEDICAL (GENERAL) HISTORY Medical History History ICD Code CAD s/p admission for inferior wall [place] coomp [place]icated by [place] with shock Hypertension Surgical History Surgery Date(Month/Year) PCI 12/2016 PCI RCA GALI x 2 12/2016 Hospitalization History Reason Date(Month/Year) [facility]. 06/26- carotid arter y's
== END 2024-05-24 10:42 | disposition home or self-care (01) ==
PROVIDERS: PCP Family Medicine; Visit Provider Family Medicine
DX: I10 Essential (primary) hypertension (principal); E78.5 Hyperlipidemia, unspecified; I25.10 Atherosclerotic heart disease of native coronary artery without angina pectoris

== ENCOUNTER → 2024-05-24 09:31 | Outpatient (BNVA) | payer MEDICARE, SELFPAY ==
[2022-12-24 05:51] VITALS: BP 120/58; BP 132/56; BMI 27.8
== END ==
PROVIDERS: PCP Family Medicine; Visit Provider Family Medicine
DX: I10 Essential (primary) hypertension (principal); I25.10 Atherosclerotic heart disease of native coronary artery without angina pectoris; E78.5 Hyperlipidemia, unspecified
CPT/HCPCS: 99212

== ENCOUNTER 2024-06-05 10:08 | Outpatient (AMB) | payer MEDICARE, SELFPAY ==
[2022-12-24 05:51] VITALS: BP 120/58; BP 132/56; BMI 27.8
--- NOTE | 2024-06-05 10:14 | A.OFFVIS_ITS ---
Intake Visit Reasons: 1yr follow up s/p Carotid/Arterial US 05/22/24 Intake Note: Patient presents for 1 year follow up carotid/arterial US. No complaints. Accompanied by: Self / Same As Patient Allergies No Known Allergies Allergy (Verified 06/05/24 10:15) HPI HPI 1yr follow up s/p Carotid/Arterial US 05/22/24: Details: The patient is a 69-year-old male presenting with peripheral artery disease for routine carotid and lower extremity arterial surveillance. He has previously undergone a right carotid endarterectomy in 2020 and a right superficial femoral artery atherectomy with stent placement in 2021. He appears to be doing well in terms of his carotids with no interval issues. 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 Intermittent claudication is present, affecting both legs with more pronounced symptoms on the right side. Walking is manageable for short distances. He can easily walk 2 blocks without any significant difficulties. The patient reports maintaining general activity levels without major lifestyle restrictions. He now presents for carotid in arterial surveillance follow-up. [facility] Medical History [place] (myocardial infarction) PVD (peripheral vascular disease) Heart attack High cholesterol Hypertension Surgical History S/P cardiac catheterization Hx of colonoscopy History of esophagogastroduodenoscopy (EGD) History of carotid angioplasty History of prostate surgery History of heart artery stent Family History Maternal Grandfather Colon cancer Social History Housing: House Alcohol intake: current Alcohol intake frequency: a few times a month Patient Tobacco Use Status: Current everyday Tobacco user Tobacco use type: Cigarette Cigarettes Per Day: 2 Years Smoked: 50 e-Cigarette/Vaping Use: Never Used Second Hand Smoke Exposure: No service: No Current occupational status: retired Current occupational exposures/hazards: No Cognitive needs: No Hearing needs: No Vision needs: No Review of Systems Const All systems reviewed & are unremarkable except as noted in HPI and below Reports no additional complaints ENT Reports Normal hearing present Card Denies chest pain, Denies chest pain at rest, Denies chest pain with activity and Denies pedal edema Resp Denies cough GI Denies abdominal pain Musc Denies abnormal gait, Denies muscle cramps and Denies radiating pain into limb Skin/Breast Denies skin ulcer and Denies wounds Neuro Reports Normal hearing present and Denies abnormal gait Psych Reports no additional complaints Physical Exam Const General: cooperative, healthy appearing and comfortable Orientation/consciousness: oriented to person, oriented to place and oriented to time HEENT Head: Yes normal to inspection Neck Neck: Yes normal visual inspection Carotids: no bruits Chest Chest palpation & inspection: normal inspection of the chest Resp Effort & Inspection: normal respiratory effort and able to speak in complete sentences Auscultation: clear to auscultation bilaterally, no crackles, no rales, no rhonchi and no wheezes Cardio Other: Bilateral DP signals Rate: regular rate Rhythm: regular rhythm Heart sounds: S1 normal heart sound present and S2 normal heart sound present Bruits: no carotid bruits GI Inspection: Yes normal to inspection Skin Wounds: no wounds Hair: normal Neuro General: oriented to person, oriented to place and oriented to time Cranial nerves: Yes CN's II-XII intact bilaterally and Yes Normal hearing present Cognition (Neuro): normal cognition Motor exam (neuro): 5/5 motor strength present throughout Extrem Other: venous exam: No significant superficial varicosities or spider telangiectasias, minimal edema General: No clubbing, No cyanosis and No edema Psych Appearance: grossly normal Mental Status: mental status grossly normal Speech and movement: Normal speech and movement present Results Reviewed Results Reviewed: Arterial testing dated 05/22/2024 demonstrates NATALYA on the right of 0.76 with an open stent and left with an NATALYA of 0.43 with a known SFA occlusion. Carotid testing dated 05/22/2024 demonstrates right side and left-sided 0-49% stenosis. Written report and images were reviewed. Assessment & Plan Assessment & Plan (1) PVD (peripheral vascular disease): Comment: 07/15/2021- right SFA atherectomy and stent Code(s): I73.9 - Peripheral vascular disease, unspecified Category: Medical Plan: In short patient has stable claudication. I did review the pathophysiology of peripheral vascular disease with the patient. In addition we did discuss routine conservative measures including a healthy diet and the importance of exercise and ambulation. We did discuss risk factor modification. The patient will continue to to follow-up with surveillance follow-up in approximately 1 year. Thank you for allowing us to participate in this patient's care. If there are any questions or concerns please do not hesitate to contact us. (2) Carotid stenosis: Comment: 06/26/2020 - right carotid endarterectomy by Dr. Murillo at [facility] Code(s): I65.29 - Occlusion and stenosis of unspecified carotid artery Category: Medical Qualifiers: Laterality: bilateral Qualified Code(s): I65.23 - Occlusion and stenosis of bilateral carotid arteries Plan: In short patient has asymptomatic carotid disease. We have reviewed signs and symptoms of a stroke. We also discussed risk factor modification inclusive a healthy diet low in cholesterol. The patient will follow up with us with surveillance ultrasound of the carotids 1 year. Should there be any changes or signs or symptoms of a stroke we will be happy to see them back sooner. Thank you for allowing us to participate in this patient's care. If there are any questions or concerns please do not hesitate to contact us. Plan Patient was informed and verbally consented to the use of an ambient scribe for clinic note documentation during this visit. Orders: Orders US arterial duplex LE BI 1 Year I73.9 - Peripheral vascular disease, unspecified US carotid duplex BI 1 Year I65.23 - Occlusion and stenosis of bilateral carotid arteries Patient Instructions: - Continue taking prescribed baby aspirin and atorvastatin as directed - Engage in regular physical activity as tolerated, taking breaks when needed - Monitor for significant changes in symptoms, particularly increased leg pain or development of ulcers - Return for an annual follow-up for further assessment - Seek medical advice if significant symptom escalation occurs before scheduled follow-up Coding Level of Care Code Est Pt Level 4 (27143) Complex EM visit Add On G2211 Diagnoses PVD (peripheral vascular disease) I73.9 Bilateral carotid artery stenosis I65.23 Laterality: bilateral
--- OUTSIDE RECORDS SUMMARY | 2024-06-05 12:02 | XMS_ITS | Patient Health Record ---
Author Organization [facility] [place] [address] Care Team Providers Care Turkey Roll Maker Name Role Phone NO PCP, No Primary Care Provider Evangelista Goss Unavailable [phone] Allergies Allergen (clinical drug ingredient) Drug/Non Drug Allergy documented on EMR Reaction Allergy Type Onset Date Status lisinopril cough Drug Allergy Active Reason For Referral No Information Medications Medication SIG (Take, Route, Frequency, Duration) Notes [...] Once a day for 30 day(s) Active Social History Tobacco Use: Social History Observation Description Date Details (start date - stop date) Former Smoker NA - NA Tobacco Use/Smoking Question Answer Notes Are you a former smoker How long has it been since you last smoked? 1-5 years Section Notes: Caffeine: 1-2 cups of coffee daily Alcohol: rarely Caffeine: 1-2 cups of coffee daily Alcohol: rarely Problems Problem Type SNOMED Code ICD Code Onset Dates Problem Status W/U Status Risk Notes Problem Ischemic cardiomyopathy (667306730) Ischemic cardiomyopathy (I25.5) Active confirmed Problem Syncope and collapse (232411779) Syncope and collapse (R55) Active confirmed Problem Cardiogenic shock (56576564) Cardiogenic shock (R57.0) Active confirmed Problem Dyslipidemia (598441248) Dyslipidemia (E78.5) Active confirmed Problem Atherosclerotic heart disease of [place] coronary artery without angina pectoris (818114110029236) Coronary artery disease involving [place] coronary artery of [place] heart, angina presence unspecified (I25.10) Active confirmed Problem Peripheral vascular disease (728633975) PVD (peripheral vascular disease) (I73.9) Active confirmed Problem Inferior myocardial infarction (I21.19) Active confirmed Plan Of Treatment Future Test Test Name Order Date Lipid Profile 12/28/2017 Stress Sestamibi Myocardial Perfusion Do butamine 08/03/2019 Lipid Profile 08/03/2019 Insurance Providers Payer Name Payer Address Payer Phone Subscriber Number Group Number Insured Name Patient Relationship to Insured Coverage Start Date Coverage End Date MRP [employer] [address] [place] [address] [phone] [id number] Ilya Corbett Self - patient is the insured 0 Medical (General) History Medical History History ICD Code CAD s/p admission for inferior wall [place] coomp licated by RV [place] with shock Hypertension Surgical History Surgery Date(Month/Year) PCI 12/2016 PCI RCA GALI x 2 12/2016 Hospitalization History Reason Date(Month/Year) [facility]. 06/26- carotid arter y's
== END 2024-06-05 10:32 | disposition home or self-care (01) ==
PROVIDERS: PCP Family Medicine; Visit Provider Surgery Vascular Surgery
DX: I73.9 Peripheral vascular disease, unspecified (principal); I65.23 Occlusion and stenosis of bilateral carotid arteries
CPT/HCPCS: 99214; G2211

== ENCOUNTER → 2024-06-05 10:08 | Outpatient (BNVA) | payer MEDICARE, SELFPAY ==
[2022-12-24 05:51] VITALS: BP 120/58; BP 132/56; BMI 27.8
== END ==
PROVIDERS: PCP Family Medicine; Visit Provider Surgery Vascular Surgery
DX: I73.9 Peripheral vascular disease, unspecified (principal); I65.23 Occlusion and stenosis of bilateral carotid arteries
CPT/HCPCS: 99212

== ENCOUNTER 2024-08-22 10:03 | Outpatient (AMB) | payer MEDICARE, SELFPAY ==
[2022-12-24 05:51] VITALS: BP 120/58; BP 132/56; BMI 27.8
--- NOTE | 2024-08-22 10:16 | MHC.OFFVIS ---
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 He has moved here to the local area from [place]. 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 At that time, he underwent right coronary artery stenting. It seems that he had early thrombosis due to change in antiplatelet therapy without appropriate loading. He also has peripheral vascular disease in his lower extremities and also has had a right carotid endarterectomy. In 2022, had ACS admission to [facility]. Underwent PCI to [facility]. After that, no new concerns. No angina. No other cardiac symptoms. Many comorbidities including hypertension, dyslipidemia, smoking. [facility] Medical History [place] (myocardial infarction) PVD (peripheral vascular disease) Heart attack High cholesterol Hypertension Surgical History S/P cardiac catheterization Hx of colonoscopy History of esophagogastroduodenoscopy (EGD) History of carotid angioplasty History of prostate surgery History of heart artery stent Family History Maternal Grandfather Colon cancer Social History Housing: House Alcohol intake: current Alcohol intake frequency: a few times a month Patient Tobacco Use Status: Current everyday Tobacco user Tobacco use type: Cigarette Cigarettes Per Day: 2 Years Smoked: 50 e-Cigarette/Vaping Use: Never Used Second Hand Smoke Exposure: No service: No Current occupational status: retired Current occupational exposures/hazards: No Cognitive needs: No Hearing needs: No Vision needs: No Review of Systems Const Denies chills, Denies fatigue, Denies fever(s), Denies frequent falls, Denies weakness, Denies weight gain and Denies weight loss ENT Denies dizziness Card Denies chest pain, Denies leg edema, Denies lightheadedness, Denies palpitations, Denies dyspnea and Denies dyspnea on exertion Resp Denies cough, Denies dyspnea and Denies dyspnea on exertion GI Denies hematochezia Musc Denies abnormal gait, Denies muscle weakness, Denies numbness, Denies radiating pain into limb and Denies tingling Neuro Denies abnormal gait, Denies dizziness, Denies frequent falls, Denies numbness, Denies tingling and Denies weakness Endo Denies fatigue and Denies palpitations Physical Exam Vital Signs: Last Vital Signs Pulse 60 08/22/24 10:18 BP 100/60 08/22/24 10:18 BMI result Body Mass Index 27.3 Const General: comfortable and no acute distress Orientation/consciousness: patient oriented x3 HEENT Other: Unremarkable Head: Yes normal to inspection Neck Neck: Yes normal visual inspection Chest Chest palpation & inspection: normal inspection of the chest Resp Auscultation: clear to auscultation bilaterally Cardio Palpation: normal PMI Heart sounds: S1 normal heart sound present, S2 normal heart sound present, no gallops, no murmurs and no rubs GI Palpation (GI): Soft to palpation Back/Spine/Pelvis Other: unremarkable Skin General skin exam: no rashes or lesions noted Neuro General: patient oriented x3 Extrem General: Yes normal to inspection Psych Mental Status: mental status grossly normal Assessment & Plan Assessment & Plan (1) Atherosclerotic cardiovascular disease: Code(s): I25.10 - Atherosclerotic heart disease of [place] coronary artery without angina pectoris Category: Medical (2) Stented coronary artery: Code(s): Z95.5 - Presence of coronary angioplasty implant and graft Category: Surgical (3) PVD (peripheral vascular disease): Comment: 07/15/2021- right SFA atherectomy and stent Code(s): I73.9 - Peripheral vascular disease, unspecified Category: Medical (4) Essential hypertension: Code(s): I10 - Essential (primary) hypertension Category: Medical (5) Smoker: Code(s): F17.200 - Nicotine dependence, unspecified, uncomplicated Category: Social Hx Plan Cardiac catheterization -2022-1st obtuse marginal with 90% stenosis status post PCI. Left main with minimal irregularities. LAD with mild diffuse disease with mid LAD bridging. RCA with mild diffuse disease. Extensive stents from proximal to distal RCA, widely patent. Echocardiogram 2022-LVEF 65%. Basal inferior/inferolateral akinesis. Mild aortic valve calcification. Carotid ultrasound-05/2024- status post right carotid endarterectomy. No significant stenosis. Left-0 249% stenosis. Overall, coronary as well as vascular disease and many risk factors. Main recommendation is to stop smoking completely. Continue aspirin and statins. Last LDL 62 mg/dL. Triglycerides 67 mg/dL. Blood pressure stable on losartan/hydrochlorothiazide. He has been on beta-blockers in the past but not anymore. States that has been stopped. Discussion Notes During our discussion, the patient expressed understanding of the treatment benefits and was agreeable to maintaining the current medication plan. We discussed the importance of regular follow-up visits to monitor and adjust treatment as needed and the risks of smoking. Alternatives to the current plan were not necessary due to stable progress. I emphasized adherence to medication, the importance of lifestyle modifications, and awareness of any new symptoms of heart issues. The plan was clearly communicated, and the patient agreed to a follow-up appointment in six months unless symptoms occur sooner. Patient was informed and verbally consented to the use of an ambient scribe for clinic note documentation during this visit. Patient Instructions: - Continue taking prescribed medications as directed. - Avoid smoking. - Monitor for any symptoms like chest pain; seek care if symptoms arise. - Return for follow-up in six months. - Maintain a healthy lifestyle to support heart health. Coding Level of Care Code Est Pt Level 4 (23267) Complex EM visit Add On G2211 Diagnoses Atherosclerotic cardiovascular disease I25.10 Stented coronary artery Z95.5 PVD (peripheral vascular disease) I73.9 Essential hypertension I10 Smoker F17.200
[2024-08-22 10:18] VITALS: BP 100/60; PULSE 60; BMI 27.3
--- OUTSIDE RECORDS SUMMARY | 2024-08-22 11:30 | XMS_ITS | Patient Health Record ---
Author Organization [facility] [place] [address] Care Team Providers Care Topographical Surveyor Name Role Phone NO PCP, No Primary Care Provider Evangelista Goss Unavailable [phone] Allergies Allergen (clinical drug ingredient) Drug/Non Drug Allergy documented on EMR Reaction Allergy Type Onset Date Status lisinopril lisinopril cough Drug Allergy Activ e Reason For Referral No Information Medications Medication [...] W/U Status Risk Notes Problem Ischemic cardiomyopathy (261389896) Ischemic cardiomyopathy (I25.5) Active confirmed Problem Syncope and collapse (449502016) Syncope and collapse (R55) Active confirmed Problem Cardiogenic shock (02554400) Cardiogenic shock (R57.0) Active confirmed Problem Dyslipidemia (910665564) Dyslipidemia (E78.5) Active confirmed Problem Atherosclerotic heart disease of [place] coronary artery without angina pectoris ([id number]) Coronary artery disease involving [place] coronary artery of [place] heart, angina presence unspecified (I25.10) Active confirmed Problem Peripheral vascular disease (769338635) PVD (peripheral vascular disease) (I73.9) Active confirmed [...] [facility] [employer] [address] [place] [address] [id number] Ilya Corbett Self - patient is the insured 0 Medical (General) History Medical History History ICD Code CAD s/p admission for inferior wall LA coomp licated by RV LA with shock Hypertension Surgical History Surgery Date(Month/Year) PCI 12/2016 PCI RCA GALI x 2 12/2016 Hospitalization History Reason Date(Month/Year) [facility]. 06/26- carotid arter y's
== END 2024-08-22 10:33 | disposition home or self-care (01) ==
LOC: HO.HCS 10:04
PROVIDERS: PCP Family Medicine; Visit Provider Internal Medicine
DX: I25.10 Atherosclerotic heart disease of native coronary artery without angina pectoris (principal); Z95.5 Presence of coronary angioplasty implant and graft; I73.9 Peripheral vascular disease, unspecified; I10 Essential (primary) hypertension; F17.200 Nicotine dependence, unspecified, uncomplicated
CPT/HCPCS: 99214; G2211

== ENCOUNTER → 2024-08-22 10:03 | Outpatient (BNVA) | payer MEDICARE, SELFPAY ==
[2022-12-24 05:51] VITALS: BP 120/58; BP 132/56; BMI 27.8
== END ==
PROVIDERS: PCP Family Medicine; Visit Provider Internal Medicine
DX: I25.10 Atherosclerotic heart disease of native coronary artery without angina pectoris (principal); I73.9 Peripheral vascular disease, unspecified; I10 Essential (primary) hypertension; F17.210 Nicotine dependence, cigarettes, uncomplicated; Z95.5 Presence of coronary angioplasty implant and graft
CPT/HCPCS: 99212

== ENCOUNTER 2024-09-10 08:11 | Outpatient (AMB) | payer MEDICARE, SELFPAY ==
[2022-12-24 05:51] VITALS: BP 120/58; BP 132/56; BMI 27.8
--- OUTSIDE RECORDS SUMMARY | 2024-09-10 08:16 | XMS_ITS | Patient Health Record ---
Author Organization [facility] [place] [address] Care Team Providers Care Cook Box Filler Name Role Phone NO PCP, No Primary Care Provider Evangelista Goss Unavailable [phone] Allergies Allergen (clinical drug ingredient) Drug/Non Drug [...] W/U Status Risk Notes Problem Ischemic cardiomyopathy (005923842) Ischemic cardiomyopathy (I25.5) Active confirmed Problem Syncope and collapse (003245066) Syncope and collapse (R55) Active confirmed Problem Cardiogenic shock (21138479) Cardiogenic shock (R57.0) Active confirmed Problem Dyslipidemia (937256284) Dyslipidemia (E78.5) Active confirmed Problem Atherosclerotic heart disease of [place] coronary artery without angina pectoris (499836720695444) Coronary artery disease involving [place] coronary artery of [place] heart, angina presence unspecified (I25.10) Active confirmed Problem Peripheral vascular disease (239574497) PVD (peripheral vascular disease) (I73.9) Active confirmed [...] [employer] [address] [place] [address] [id number] Ilya Corbett Self - patient is the insured 0 Medical (General) History Medical History History ICD Code CAD s/p admission for inferior wall [place] coomp licated by RV PA with shock Hypertension Surgical History Surgery Date(Month/Year) PCI 12/2016 PCI RCA GALI x 2 12/2016 Hospitalization History Reason Date(Month/Year) [facility]. 06/26- carotid arter y's
--- NOTE | 2024-09-10 08:17 | A.OFFPC_ITS ---
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: No Allergies No Known Allergies Allergy (Verified 09/10/24 08:18) Medication List - Last Reconciled 09/10/24 by Brett Swift MD aspirin (Adult Low Dose Aspirin) 81 mg PO DAILY atorvastatin 80 mg PO DAILY 90 days cholecalciferol (vitamin D3) 1,250 mcg PO QWEEK 28 days diclofenac sodium 1% 4 grams topical QID PRN 30 days hydrochlorothiazide 12.5 mg PO DAILY 90 days losartan 100 mg PO DAILY 3 months Tobacco use date assessed: 09/10/24 Fall risk assessment: No Falls in past year Last assessed Fall Risk: 09/10/24 Dental Screening Dental Screen Date: 09/10/24 Did you have a dental visit in the last 12 months?: No Did you have a dental problem in the last 6 months where you did not have access to dental care?: No Was dental information given to patient?: Yes HPI f/u htn, chronic conditions HPI Details 69 y/o male presents to f/u HTN. No recent labs to review. BP today 110/62, 55p. He is on losartan 100mg, HCTZ 12.5mg daily. [facility] Medical History [place] (myocardial infarction) PVD (peripheral vascular disease) Heart attack High cholesterol Hypertension Surgical History S/P cardiac catheterization Hx of colonoscopy History of esophagogastroduodenoscopy (EGD) History of carotid angioplasty History of prostate surgery History of heart artery stent Family History Maternal Grandfather Colon cancer Social History (Updated 09/10/24 @ 09:32 by Brandi Brown CMA) Housing: House Alcohol intake: current Alcohol intake frequency: a few times a month Patient Tobacco Use Status: Current everyday Tobacco user Tobacco use type: Cigarette Cigarettes Per Day: 2 Years Smoked: 50 e-Cigarette/Vaping Use: Never Used Second Hand Smoke Exposure: No service: No Current occupational status: retired Current occupational exposures/hazards: No Cognitive needs: No Hearing needs: No Vision needs: No Questionnaire Thrive Questionnaire Date Thrive assessed: 04/18/24 I am a: Patient What is your living situation today?: I have a steady place to live Within the past 12 months, did the food you bought not last and you didn't have the money to get more?: I choose not to answer this question Within the past 12 months, did you worry whether your food would run out before you got money to buy more?: I choose not to answer this question Do you have trouble paying for medicines?: No Do you have trouble getting transportation to medical appointments?: No Do you have trouble paying your heating and electricity bill?: No Do you have trouble taking care of your child, family member or friend?: No Do you have trouble with day-to-day activities such as bathing, preparing meals, shopping, managing finances, etc.?: No Are you currently unemployed and looking for a job?: No Are you interested in more education?: No Please select the resources that you would like help with: None Currently or been in a relationship where the following occur: No concerns reported THRIVE Score: 0 VITA-7 AMB Questionnaire VITA-7 Date VITA - 7 assessed: 05/02/23 Source: Developed by Drs. Victoriano Baxter, Odessa Moscoso, Jered Schneider and colleagues, with an educational edwina from [employer]. Review of Systems Const Denies chills, Denies fatigue, Denies fever(s), Denies headache(s) and Denies weakness ENT Denies dizziness and Denies headache(s) Card Denies dyspnea Resp Denies cough, Denies dyspnea, Denies wheezing and Denies other (shortness of breath) Musc Denies numbness and Denies tingling Neuro Denies dizziness, Denies headache(s), Denies numbness, Denies tingling and Denies weakness Psych Denies anxiety and Denies depression Endo Denies fatigue Aller/Immun Denies wheezing Physical exam (Primary Care) Vital Signs: Last Vital Signs Temp 97.6 F 09/10/24 08:20 Pulse 55 09/10/24 08:20 Resp 14 09/10/24 08:20 BP 110/62 09/10/24 08:20 Pulse Ox 100 09/10/24 08:20 Oxygen Delivery Method Room Air 09/10/24 08:20 BMI result Body Mass Index 27.9 Tobacco/Smoking Status: Tobacco use Status Tobacco use date assessed 09/10/24 09/10/24 08:19 Patient Tobacco Use Status Current everyday Tobacco 09/10/24 08:19 Tobacco use type Cigarette 09/10/24 08:19 e-Cigarette/Vaping Use Never Used 09/10/24 08:19 Thrive Assessment: Date of Thrive Assessment Date Thrive assessed 04/18/24 09/10/24 08:19 Currently or been in a relationship where the following occur: No concerns reported Const General: well developed; No acute distress Nutritional Appearance: well nourished Orientation/consciousness: patient oriented x3 HENMT Head: Yes normocephalic and Yes atraumatic Eyes General: appearance normal, both eyes and all related structures Pupils: Equal, round and reactive pupils present EOM: EOMs intact bilaterally Resp Effort & Inspection: normal respiratory effort Auscultation: clear to auscultation bilaterally Cardio Rate: regular rate Rhythm: regular rhythm Heart sounds: S1 normal heart sound present, S2 normal heart sound present, no gallops, no murmurs and no rubs Neuro General: patient oriented x3 and gait normal Cranial nerves: Yes Equal, round and reactive pupils present Psych Affect: normal affect Coding Level of Care Code Est Pt Level 3 (85693) Diagnoses Essential hypertension I10 Assessment & Plan Assessment & Plan (1) Essential hypertension: Code(s): I10 - Essential (primary) hypertension Category: Medical Plan: He?is?controlled.??Goal?is?less?than?130/80 Continue?current?medications
[2024-09-10 08:20] VITALS: BP 110/62; PULSE 55; RESP 14; TEMP 36.4; O2SAT 100; BMI 27.9
== END 2024-09-10 08:47 | disposition home or self-care (01) ==
LOC: HO.HMCFM 08:12
PROVIDERS: PCP Family Medicine; Visit Provider Family Medicine
DX: I10 Essential (primary) hypertension (principal)

== ENCOUNTER → 2024-09-10 08:11 | Outpatient (BNVA) | payer MEDICARE, SELFPAY ==
[2022-12-24 05:51] VITALS: BP 120/58; BP 132/56; BMI 27.8
== END ==
PROVIDERS: PCP Family Medicine; Visit Provider Family Medicine
DX: Z13.89 Encounter for screening for other disorder (principal)
CPT/HCPCS: 99212

== ENCOUNTER 2024-09-10 09:02 | Outpatient (REF) | payer MEDICARE, SELFPAY ==
[2022-12-24 05:51] VITALS: BP 120/58; BP 132/56; BMI 27.8
[2024-09-10 11:28] LABS: Appearance Urine Clear; Color Urine Yellow; Glucose Urine UA Negative (Negative); Leukocyte Esterase Urine Negative (Negative); Nitrite Urine Negative (Negative); Specific Gravity - Urine <= 1.005 (1.005-1.025); Urine Blood Negative (Negative); Urine Ketones Negative (Negative); Urine Protein Negative (Neg-Trace)
[2024-09-10 11:59] LABS: Creatinine Urine 26.04 mg/dL; Microalbumin Urine < 5.0 mg/L
[2024-09-10 12:04] LABS: Alanine Aminotransferase 69 U/L (0-40); Albumin Level 4.2 g/dL (3.5-5.0); Alkaline Phosphatase 67 U/L (39-117); Anion Gap 11 (12-20); Aspartate Amino Transferase 42 U/L (5-37); Bilirubin Total 0.7 mg/dL (0.0-1.0); Blood Urea Nitrogen 26 mg/dL (9-16); Calcium 9.3 mg/dL (8.4-10.2); Carbon Dioxide 31 mmol/L (22-29); Chloride 106 mmol/L (96-108); Cholesterol 117 mg/dL (<200); Estimated Glomerular Filt Rate 54; Glucose Fasting 94 mg/dL (60-99); HDL Cholesterol 35 mg/dL (>40); LDL Cholesterol Calculated 70 mg/dL (<100); Potassium 4.5 mmol/L (3.3-5.1); Sodium 143 mmol/L (135-145); Total Protein 6.7 g/dL (6.5-8.0); Triglycerides 60 mg/dL (<150)
[2024-09-10 12:07] LABS: Vitamin D 25-OH Total 76.3 ng/mL (>30)
== END 2024-09-10 09:03 | disposition home or self-care (01) ==
LOC: HO.WFDLDS 09:02
PROVIDERS: Visit Provider Family Medicine
DX: Z00.00 Encounter for general adult medical examination without abnormal findings (principal); R79.89 Other specified abnormal findings of blood chemistry; E55.9 Vitamin D deficiency, unspecified; I25.10 Atherosclerotic heart disease of native coronary artery without angina pectoris; E78.5 Hyperlipidemia, unspecified; I10 Essential (primary) hypertension
CPT/HCPCS: 36415; 80053; 80061; 81003; 82306; 82570; 99212

== ENCOUNTER 2024-09-24 08:42 | Outpatient (AMB) | payer MEDICARE, SELFPAY ==
[2022-12-24 05:51] VITALS: BP 120/58; BP 132/56; BMI 27.8
--- NOTE | 2024-09-24 08:49 | MHC.PC.OV ---
Vital Signs 09/24/24 08:55 Height 5 ft 4 in Weight 160 lb 2 oz BMI 27.5 BP 120/60 Blood Pressure Location Rt brachial Position Sitting Respiration 14 Pulse 63 Pulse Source Pulse Oximeter Temp 98.1 F Temp Source Oral Pulse Oximetry (%) 98 Oxygen Delivery Method Room Air Intake Visit Reasons: CPE with f/u labs and health maint. 30 mins Intake Note: patient is scheduled for cpe Acid Purifier Required: No Allergies No Known Allergies Allergy (Verified 09/24/24 08:52) Medication List - Last Reconciled 09/24/24 by Brett Swift MD aspirin (Adult Low Dose Aspirin) 81 mg PO DAILY atorvastatin 80 mg PO DAILY 90 days cholecalciferol (vitamin D3) 1,250 mcg PO QWEEK diclofenac sodium 1% 4 grams topical QID PRN 30 days hydrochlorothiazide 12.5 mg PO DAILY 90 days losartan 100 mg PO DAILY 3 months Tobacco use date assessed: 09/24/24 Fall risk assessment: No Falls in past year Last assessed Fall Risk: 09/24/24 Dental Screening Dental Screen Date: 09/24/24 Did you have a dental visit in the last 12 months?: No Did you have a dental problem in the last 6 months where you did not have access to dental care?: No Was dental information given to patient?: Patient has dentist HPI CPE with f/u labs and health maint. 30 mins HPI Details 69 y/o male presents for an extended exam with f/u labs and health maint. Labs drawn 09/10/24. Reviewed labs with pt. Elevated AST 42 ALT 69. Triglycerides 60. TC 117. LDL 70. HDL low at 35. He is on artovastatin 80mg daily. Vitamin D 76.3 ng/mL. Blood pressure today 120/60, 63p. He is on losartan 100mg, HCTZ 12.5mg daily. He reports he continues to smoke a quarter pack per day. HPI Comments History of Present Illness Details Documentation assistance for Brett Swift MD, was provided by Lauri Lyn,? [employer] Research Engineer on 09/24/2024 at 9:11 AM TIERNEY. Kimberlee, Dr. Swift, have read, observed, and verified documentation. ? PFS Medical History [place] (myocardial infarction) PVD (peripheral vascular disease) Heart attack High cholesterol Hypertension Surgical History S/P cardiac catheterization Hx of colonoscopy History of esophagogastroduodenoscopy (EGD) History of carotid angioplasty History of prostate surgery History of heart artery stent Family History Maternal Grandfather Colon cancer Social History Housing: House Alcohol intake: current Alcohol intake frequency: a few times a month Patient Tobacco Use Status: Current everyday Tobacco user Tobacco use type: Cigarette Cigarettes Per Day: 2 Years Smoked: 50 e-Cigarette/Vaping Use: Never Used Second Hand Smoke Exposure: No service: No Current occupational status: retired Current occupational exposures/hazards: No Cognitive needs: No Hearing needs: No Vision needs: No Questionnaire PHQ-9 Over the last 2 weeks, how often have you been bothered by any of the following problems? 1. Little interest or pleasure in doing things: not at all 2. Feeling down, depressed, or hopeless: not at all 3. Trouble falling or staying asleep, or sleeping too much: not at all 4. Feeling tired or having little energy: not at all 5. Poor appetite or overeating: not at all 6. Feeling bad about yourself - or that you are a failure or have let yourself or your family down: not at all 7. Trouble concentrating on things, such as reading the newspaper or watching television: not at all 8. Moving or speaking so slowly that other people could have noticed. Or the opposite - being so fidgety or restless that you have been moving around a lot more than usual: not at all 9. Thoughts that you would be better off or of hurting yourself in some way: not at all Total score: 0 Depression Screening Interpretation: Negative Depression Screening Done: Yes 78715 - PHQ-9 Billing: Yes Source: Developed by Drs. Victoriano Baxter, Odessa Moscoso, Jered Schneider and colleagues, with an educational edwina from [email or web address]. Thrive Questionnaire Date Thrive assessed: 09/24/24 I am a: Patient What is your living situation today?: I have a steady place to live Within the past 12 months, did the food you bought not last and you didn't have the money to get more?: I choose not to answer this question Within the past 12 months, did you worry whether your food would run out before you got money to buy more?: I choose not to answer this question Do you have trouble paying for medicines?: No Do you have trouble getting transportation to medical appointments?: No Do you have trouble paying your heating and electricity bill?: No Do you have trouble taking care of your child, family member or friend?: No Do you have trouble with day-to-day activities such as bathing, preparing meals, shopping, managing finances, etc.?: No Are you currently unemployed and looking for a job?: No Are you interested in more education?: No Please select the resources that you would like help with: None Currently or been in a relationship where the following occur: No concerns reported THRIVE Score: 0 AUDIT C Alcohol Use Questionnaire (AUDIT-C) 1. How often do you have a drink containing alcohol?: Never 3. How often do you have six or more drinks on one occasion?: Never Total Score: 0 Score Reviewed/Action Taken: Yes VITA-7 AMB Questionnaire VITA-7 Date VITA - 7 assessed: 09/24/24 Feeling nervous, anxious, or on edge: 0 = Not at all Not being able to stop or control worryin = Not at all Worrying too much about different things: 0 = Not at all Trouble relaxin = Not at all Being so restless that it is hard to sit still: 0 = Not at all Becoming easily annoyed or irritable: 0 = Not at all Feeling afraid as if something awful might happen: 0 = Not at all Total VITA-7 score (0-4 normal; 5-9 mild; 10-14 moderate; 15-21 severe): 0 Source: Developed by Drs. Victoriano Baxter, Odessa Moscoso, Jered Schneider and colleagues, with an educational edwina from [email or web address]. VIAT-7 Assessment Billing VITA-7 Assessment Tool: VITA-7 Assessment 96262 Review of Systems Const Denies chills, Denies fatigue, Denies fever(s), Denies headache(s) and Denies weakness Eyes Denies change in vision ENT Denies dizziness, Denies headache(s), Denies hearing loss, Denies nasal congestion, Denies sinus pain, Denies sinus pressure and Denies sore throat Card Denies chest pain, Denies lightheadedness, Denies dyspnea and Denies other (palpitations) Resp Denies cough, Denies dyspnea and Denies wheezing GI Denies abdominal pain, Denies melena, Denies hematochezia, Denies change in bowel habits, Denies dyspepsia and Denies nausea Denies hematuria and Denies dysuria Musc Denies abnormal gait, Denies myalgias, Denies arthralgias, Denies numbness and Denies tingling Skin/Breast Denies rash, Denies unusual bruising and Denies wounds Neuro Denies abnormal gait, Denies dizziness, Denies headache(s), Denies memory loss, Denies numbness, Denies Sensory deficit (Neuro), Denies tingling and Denies weakness Psych Denies anxiety, Denies depression and Denies memory loss Endo Denies cold intolerance, Denies fatigue, Denies heat intolerance, Denies polydipsia and Denies polyuria Napoleon/Lymph Denies easy bleeding and Denies easy bruising Aller/Immun Denies wheezing Physical exam (Primary Care) Vital Signs: Last Vital Signs Temp 98.1 F 09/24/24 08:55 Pulse 63 09/24/24 08:55 Resp 14 09/24/24 08:55 BP 120/60 09/24/24 08:55 Pulse Ox 98 09/24/24 08:55 Oxygen Delivery Method Room Air 09/24/24 08:55 BMI result Body Mass Index 27.5 Tobacco/Smoking Status: Tobacco use Status Tobacco use date assessed 09/24/24 09/24/24 08:57 Patient Tobacco Use Status Current everyday Tobacco 09/24/24 08:50 Tobacco use type Cigarette 09/24/24 08:50 e-Cigarette/Vaping Use Never Used 09/24/24 08:50 PHQ-9: PHQ-9 Score PHQ-9: Total score 0 09/24/24 08:57 Depression Screening Interpretation: Negative Thrive Assessment: Date of Thrive Assessment Date Thrive assessed 09/24/24 09/24/24 08:57 Currently or been in a relationship where the following occur: No concerns reported Const General: no acute distress, well developed, alert and awake Nutritional Appearance: well nourished Orientation/consciousness: patient oriented x3 HENMT Head: Yes normocephalic and Yes atraumatic Ears: hearing grossly normal bilaterally and TM's normal bilaterally General nose exam: Normal external nose present and Normal nares present Mouth: Normal oral and palatal mucosa present and moist mucous membranes Teeth and gingiva: dentition normal Throat: Yes posterior oropharynx normal Eyes General: appearance normal, both eyes and all related structures Pupils: Equal, round and reactive pupils present and Pupil accommodation reflex normal EOM: EOMs intact bilaterally Neck Neck: Yes normal visual inspection, Yes no lymphadenopathy and Yes trachea midline Thyroid: Thyroid normal Carotids: no bruits Lymphatic: no lymphadenopathy noted Chest Chest palpation & inspection: normal inspection of the chest Resp Effort & Inspection: normal respiratory effort Auscultation: clear to auscultation bilaterally Cardio Rate: regular rate Rhythm: regular rhythm Heart sounds: S1 normal heart sound present, S2 normal heart sound present, no gallops, no murmurs and no rubs Bruits: no abdominal aortic bruits and no carotid bruits GI Palpation (GI): No Abdominal aortic bruit present, Soft to palpation, nontender, No hepatosplenomegaly present and No Rebound tenderness present Auscultation: normal bowel sounds General: Yes no CVA tenderness Back/Spine/Pelvis Back: no CVA tenderness Cervical Spine: cervical ROM normal and No Cervical spine tenderness Thoracic/Lumbar Spine: thoraco-lumbar ROM normal, No pain with thoraco-lumbar ROM, No thoracic spinal tenderness and No lumbar spinal tenderness Skin Lesions: no lesions Rashes: no rashes Trauma: no lacerations or abrasions Wounds: no wounds Nails: normal Neuro General: patient oriented x3 Cranial nerves: Yes Equal, round and reactive pupils present Cognition (Neuro): normal cognition Gait exam (Neuro): Normal gait present Motor exam (neuro): 5/5 motor strength present throughout Sensory Exam: No Sensory deficit (Neuro) Deep tendon reflexes (DTR's): Right patellar reflex intensity grade: 2+ and Left patellar reflex intensity grade: 2+ Extrem General: Yes normal to inspection and No edema Psych Appearance: grossly normal Affect: normal affect Attitude: cooperative Thought process: Normal thought process present Coding Level of Care Code Est Pt Level 4 (20664) Diagnoses Essential hypertension I10 Hyperlipidemia E78.5 CAD (coronary artery disease) I25.10 Elevated liver enzymes R74.8 Low vitamin D level R79.89 Screening for colon cancer Z12.11 Screening for prostate cancer Z12.5 Smoker F17.200 Adult general medical exam Z00.00 Additional Codes VITA-7 Assessment Billing - VITA-7 Assessment Tool: VITA-7 Assessment 01003 ([id number]) PHQ-9 - 38478 - PHQ-9 Billing: Yes ([id number]) Assessment & Plan Assessment & Plan (1) Essential hypertension: Code(s): I10 - Essential (primary) hypertension Category: Medical Plan: Blood?pressure?is?controlled.??Goal?is?less?than?130/80 Continue?current?medications (2) Hyperlipidemia: Code(s): E78.5 - Hyperlipidemia, unspecified Category: Medical Plan: LDL?cholesterol?is?fairly?well?controlled?at?70 HDL?is?a?little?too?low Continue?atorvastatin?and?I?encouraged?increased?activity?and?exercise (3) CAD (coronary artery disease): Code(s): I25.10 - Atherosclerotic heart disease of [place] coronary artery without angina pectoris Category: Medical Plan: Stable (4) Elevated liver enzymes: Code(s): R74.8 - Abnormal levels of other serum enzymes Category: Medical Plan: Mildly?elevated?liver?enzymes Increase?hydration Will?follow (5) Low vitamin D level: Code(s): R79.89 - Other specified abnormal findings of blood chemistry Category: Medical Plan: Vitamin-D?level?is?within?normal?range Will?recheck?at?with?next?blood?draw. If?in?the?higher?range?of?normal,?we?may?decrease?his?vitamin-D?supplementation. (6) Screening for colon cancer: Code(s): Z12.11 - Encounter for screening for malignant neoplasm of colon Category: Medical Plan: Patient's?[place]was[place]at[place] I?do?not?have?records?for?this Sending?an?order?for?a?Cologuard?test (7) Screening for prostate cancer: Code(s): Z12.5 - Encounter for screening for malignant neoplasm of prostate Category: Medical Plan: PSA?checked?in?April?was?less?than?0.10 Will?continue?monitor (8) Smoker: Code(s): F17.200 - Nicotine dependence, unspecified, uncomplicated Category: Social Hx Plan: Encouraged?weaning?and?cessation (9) Adult general medical exam: Code(s): Z00.00 - Encounter for general adult medical examination without abnormal findings Category: Medical Plan: 69-year-old?male?presents?for?an?extended?exam Orders: Orders Comprehensive [place]. Panel Fast Today R79.89 - Other specified abnormal findings of blood chemistry, Z00.00 - Encounter for general adult medical examination without abnormal findings Microalbumin, Random (w Creat) Today I10 - Essential (primary) hypertension Lipid Panel Today E78.5 - Hyperlipidemia, unspecified, Z00.00 - Encounter for general adult medical examination without abnormal findings Vitamin D 25-OH Total Today E55.9 - Vitamin D deficiency, unspecified, R79.89 - Other specified abnormal findings of blood chemistry Referrals Cologuard Test Z12.11 - Encounter for screening for malignant neoplasm of colon, Z12.12 - Encounter for screening for malignant neoplasm of rectum
[2024-09-24 08:55] VITALS: BP 120/60; PULSE 63; RESP 14; TEMP 36.7; O2SAT 98; BMI 27.5
--- OUTSIDE RECORDS SUMMARY | 2024-09-24 09:02 | XMS_ITS | Patient Health Record ---
Author Organization [facility] [place] [address] Care Team Providers Care Ep Technologist Name Role Phone NO PCP, No Primary Care Provider Evangelista Goss Unavailable [phone] Allergies Allergen (clinical drug ingredient) Drug/Non Drug [...] W/U Status Risk Notes Problem Ischemic cardiomyopathy (768612092) Ischemic cardiomyopathy (I25.5) Active confirmed Problem Syncope and collapse (504851142) Syncope and collapse (R55) Active confirmed Problem Cardiogenic shock (06276276) Cardiogenic shock (R57.0) Active confirmed Problem Dyslipidemia (641718827) Dyslipidemia (E78.5) Active confirmed Problem Atherosclerotic heart disease of [place] coronary artery without angina pectoris (938344246902923) Coronary artery disease involving pala coronary artery of pal[place] heart, angina presence unspecified (I25.10) Active confirmed Problem Peripheral vascular disease (433322563) PVD (peripheral vascular disease) (I73.9) Active confirmed [...] [employer]P [employer]REF[employer]ED [address] [place] [address] [phone] [id number] Ilya Corbett Self - patient is the insured 0 Medical (General) History Medical History History ICD Code CAD s/p admission for inferior wall PR coomp licated by RV PR with shock Hypertension Surgical History Surgery Date(Month/Year) PCI 12/2016 PCI RCA GALI x 2 12/2016 Hospitalization History Reason Date(Month/Year) [facility]. 06/26- carotid arter y's
== END 2024-09-24 09:21 | disposition home or self-care (01) ==
LOC: HO.HMCFM 08:42
PROVIDERS: PCP Family Medicine; Visit Provider Family Medicine
DX: I10 Essential (primary) hypertension (principal); E78.5 Hyperlipidemia, unspecified; I25.10 Atherosclerotic heart disease of native coronary artery without angina pectoris; R74.8 Abnormal levels of other serum enzymes; R79.89 Other specified abnormal findings of blood chemistry; Z12.11 Encounter for screening for malignant neoplasm of colon; Z12.5 Encounter for screening for malignant neoplasm of prostate; F17.200 Nicotine dependence, unspecified, uncomplicated; Z00.00 Encounter for general adult medical examination without abnormal findings

== ENCOUNTER → 2024-09-24 08:42 | Outpatient (BNVA) | payer MEDICARE, SELFPAY ==
[2022-12-24 05:51] VITALS: BP 120/58; BP 132/56; BMI 27.8
== END ==
PROVIDERS: PCP Family Medicine; Visit Provider Family Medicine
DX: Z00.00 Encounter for general adult medical examination without abnormal findings (principal); I10 Essential (primary) hypertension; E78.5 Hyperlipidemia, unspecified; I25.10 Atherosclerotic heart disease of native coronary artery without angina pectoris; R74.8 Abnormal levels of other serum enzymes; R79.89 Other specified abnormal findings of blood chemistry; F17.210 Nicotine dependence, cigarettes, uncomplicated; E55.9 Vitamin D deficiency, unspecified
CPT/HCPCS: 96127; 99212

== ENCOUNTER 2024-11-05 08:53 | Outpatient (REF) | payer MEDICARE, SELFPAY ==
[2022-12-24 05:51] VITALS: BP 120/58; BP 132/56; BMI 27.8
--- OUTSIDE RECORDS SUMMARY | 2024-11-05 09:13 | XMS_ITS | Encounter Summary ---
Author Organization [facility] Address [address] [place] [phone] Phone Care Team Providers Care Service Director Name Role Phone Marck Flood MD Unavailable [phone] Giovanni Rosenthal DO Unavailable Evangelista Jurado MD Unavailable Corrie Freedman MD Unavailable [phone] Kelton Deleon MD Unavailable [phone] Kelton Deleon MD Primary Care Provider [phone] Tomeka Navarro RN Unavailable [email or web address] Unknown, Unknown Primary Care Provider Alton Gallardo MD Unavailable Encounter Details Date Type Department Care Team (Late st Contact Info) Description 11/18/2020 Procedure Pass [facility] Periop Dept [address] [place] [id number] Social History Tobacco Use Types Packs/Day Years Used Date Smoking Tobacco: Every Day Cigarettes 0.3 50.6 Started: 04/04/1974 Smokeless Tobacco: Never Comments:quit after heart at [facility] but started 1 year ago Alcohol Use Standard Drinks/Week Comments Yes 2 (1 standard drink = 0.6 oz pur e alcohol) occasionally maybe at dinner Sex and Gender Information Value Date Recorded Sex Assigned at Male 11/18/2020 6:43 AM EDT Legal Sex Male 2:51 PM EDT Gender Identity Male 11/18/2020 6:43 AM EDT Sexual Orientation Straight 11/18/2020 6: 43 AM EDT documented as of this encounter Functional Status * Calculated C-SSRS Risk Score (Lifetime/Recent) Answer Date of Assessment Author No Risk Indicated 11/18/2020 6:46 PM EDT Tiffanie Love, VICTORINO * [place] Suicide Severity Rating Scale (Screener/Recent Self-Report) Question Answer Date of Assessment Author 1. Wish to be (Past 1 Month) No 11/18/2020 6:46 PM EDT Traci Dhillon, VICTORINO 2. Non-Specific Active Suici karen Thoughts (Past 1 Month) No 11/18/2020 6:46 PM EDT Duran RN 6. Suicidal Behavior (Lifetime) No 6:46 PM EDT Tiffanie Dhillon RN documented as of this encounter Plan of Treatment Not on file documented as of this encounter Visit Diagnoses Not on filedocumented in this encounter Additional Health Concerns Assessment Noted Time PHQ-2 Depression Total Score: 0 09/12/19 21 1:08 PM EDT documented as of this encounter Care Teams Service Director Relationship Specialty Start Date End Date Kelton Deleon MD [address] [place] [phone] [email or web address] PCP - General Internal Medicine 03/10/20 09/07/21 Unknown, Madeleine, PCP - General 09/08/21 Marck Flood MD [address] [place] [phone] Historical LMR Provider 05/04/18 Giovanni Rosenthal DO [address] [id number] Urology 05/17/19 Evangelista Jurado MD [address] [place] [address] [address] [place] [address] Cardiology 05/17/19 Corrie Freedman MD [address] [place] [phone] [email or web address] Gastroenterology 05/17/19 Kelton Deleon MD [address] [place] [phone] [email or web address] Insurance Assigned Provider 08/08/19 06/07/21 Tomeka Navarro RN [address] [place] [phone] [email or web address] Heel Attacher 05/03/16 03/03/21 Alton Ace MD [email or web address] Ophthalmology 05/27/22 documented as of this encounter Additional Source Comments The information contained in this document represents components of the legal health record. It is not the complete legal health record.[facility]
--- OUTSIDE RECORDS SUMMARY | 2024-11-05 09:13 | XMS_ITS | Patient Health Record ---
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 Name Role Phone NO PCP, No Primary Care Provider Evangelista Goss Unavailable [phone] Allergies Allergen (clinical drug ingredient) Drug/Non Drug Allergy documented on EMR Reaction Allergy Type Onset Date Status lisinopril lisinopril cough Drug Allergy Activ e Reason For Referral No Information Medications Medication SIG (Take, Route, Frequency, Duration) Notes Start Date End Date Status Metoprolol Tartrate 25 MG TAKE 1/2 TABLE T BY MOUTH TWICE DAILY 90; Duration: 90 Active Sildenafil Citrate 20 MG 1 tablet Orally Three times a day Active Atorvastatin Calcium 80 MG TAKE 1 TABLET BY MOUTH EVERY DAY; Duration: 90 last refill. pt. needs appt. Active hydroCHLOROthiazide 25 MG 1 tablet in e morning Orally Once a day; Duration: 90 days Active Cozaar 25 MG 1 tablet Orally Once a day; Duration: 90 Active Aspirin 81 MG 1 tablet Orally Once a day; Duration: 30 day(s) Active Social History Tobacco Use: [...] W/U Status Risk Notes Problem Ischemic cardiomyopathy (680678582) Ischemic cardiomyopathy (I25.5) Active confirmed Problem Syncope and collapse (627814600) Syncope and collapse (R55) Active confirmed Problem Cardiogenic shock (26817812) Cardiogenic shock (R57.0) Active confirmed Problem Dyslipidemia (732987956) Dyslipidemia (E78.5) Active confirmed Problem Atherosclerotic heart disease of [place] coronary artery without angina pectoris (044655636161247) Coronary artery disease involving [place] coronary artery of [place] heart, angina presence unspecified (I25.10) Active confirmed Problem Peripheral vascular disease (640459756) PVD (peripheral vascular disease) (I73.9) Active confirmed [...] MRP [employer] PREF[employer]ED [address] [place] [address] [id number] Ilya Corbett Self - patient is the insured 0 Medical (General) History Medical History History ICD Code CAD s/p admission for inferior wall RI coomp licated by RV RI with shock Hypertension Surgical History Surgery Date(Month/Year) PCI 12/2016 PCI RCA GALI x 2 12/2016 Hospitalization History Reason Date(Month/Year) [facility]. 06/26- carotid arter y's
[2024-11-05 12:02] LABS: Alanine Aminotransferase 49 U/L (0-40); Albumin Level 4.2 g/dL (3.5-5.0); Alkaline Phosphatase 69 U/L (39-117); Anion Gap 11 (12-20); Aspartate Amino Transferase 40 U/L (5-37); Blood Urea Nitrogen 25 mg/dL (9-16); Calcium 9.1 mg/dL (8.4-10.2); Carbon Dioxide 29 mmol/L (22-29); Chloride 105 mmol/L (96-108); Cholesterol 106 mg/dL (<200); Estimated Glomerular Filt Rate 48; HDL Cholesterol 33 mg/dL (>40); Potassium 4.0 mmol/L (3.3-5.1); Sodium 141 mmol/L (135-145); Total Protein 6.8 g/dL (6.5-8.0); Triglycerides 68 mg/dL (<150)
[2024-11-05 12:39] LABS: Prostate Specific Antigen < 0.10 ng/mL (<0.05-4.0)
== END 2024-11-05 08:54 | disposition home or self-care (01) ==
LOC: HO.WFDLDS 08:53
PROVIDERS: Referring Provider Urology; Visit Provider Family Medicine
DX: Z00.00 Encounter for general adult medical examination without abnormal findings (principal); Z12.5 Encounter for screening for malignant neoplasm of prostate; C61 Malignant neoplasm of prostate; E55.9 Vitamin D deficiency, unspecified; I10 Essential (primary) hypertension; E78.5 Hyperlipidemia, unspecified; R79.89 Other specified abnormal findings of blood chemistry
CPT/HCPCS: 36415; 80053; 80061; 82043; 82306; 82570; 84153

== ENCOUNTER 2024-11-06 09:33 | Outpatient (AMB) | payer MEDICARE, SELFPAY ==
[2022-12-24 05:51] VITALS: BP 120/58; BP 132/56; BMI 27.8
--- NOTE | 2024-11-06 09:57 | MHC.PC.OV ---
Vital Signs 11/06/24 09:59 Height 5 ft 4 in Weight 160 lb 2 oz BMI 27.5 BP 120/60 Blood Pressure Location Rt brachial Position Sitting Respiration 12 Pulse 53 Pulse Source Pulse Oximeter Temp 98.2 F Temp Source Oral Pulse Oximetry (%) 98 Oxygen Delivery Method Room Air Intake Visit Reasons: f/u liver enzymes, labs Intake Note: patient is scheduled for lab review Summer Intern Required: No Allergies No Known Allergies Allergy (Verified 11/06/24 09:58) Medication List - Last Reconciled 11/06/24 by Brett Swift MD aspirin (Adult Low Dose Aspirin) 81 mg PO DAILY atorvastatin 80 mg PO DAILY 90 days cholecalciferol (vitamin D3) 1,250 mcg PO QWEEK diclofenac sodium 1% 4 grams topical QID PRN 30 days hydrochlorothiazide 12.5 mg PO DAILY 90 days losartan 100 mg PO DAILY 3 months Tobacco use date assessed: 09/24/24 Dental Screening Dental Screen Date: 09/24/24 HPI f/u liver enzymes, labs HPI Details 69 y/o male presents to f/u labs. Watching liver enzymes, HDL, vitamin-D. Also watching EGFR which was a little low and I had advised increasing hydration. Labs drawn 11/05/24. Reviewed labs with pt. Creatinine level mildly elevated at 1.46 mg/dL. Ongoing elevated liver enzymes - AST 40, ALT 49. Triglycerides 68. TC 106. LDL 60. HDL low at 33. He is on artovastatin 80mg daily. Vit D 86.9. Blood pressure today 120/60, 53p. He is on losartan 100mg, HCTZ 12.5mg daily. [facility] Medical History SD (myocardial infarction) PVD (peripheral vascular disease) Heart attack High cholesterol Hypertension Surgical History S/P cardiac catheterization Hx of colonoscopy History of esophagogastroduodenoscopy (EGD) History of carotid angioplasty History of prostate surgery History of heart artery stent Family History Maternal Grandfather Colon cancer Social History Housing: House Alcohol intake: current Alcohol intake frequency: a few times a month Patient Tobacco Use Status: Current everyday Tobacco user Tobacco use type: Cigarette Cigarettes Per Day: 2 Years Smoked: 50 e-Cigarette/Vaping Use: Never Used Second Hand Smoke Exposure: No service: No Current occupational status: retired Current occupational exposures/hazards: No Cognitive needs: No Hearing needs: No Vision needs: No Questionnaire Thrive Questionnaire Date Thrive assessed: 09/24/24 I am a: Patient What is your living situation today?: I have a steady place to live Within the past 12 months, did the food you bought not last and you didn't have the money to get more?: I choose not to answer this question Within the past 12 months, did you worry whether your food would run out before you got money to buy more?: I choose not to answer this question Do you have trouble paying for medicines?: No Do you have trouble getting transportation to medical appointments?: No Do you have trouble paying your heating and electricity bill?: No Do you have trouble taking care of your child, family member or friend?: No Do you have trouble with day-to-day activities such as bathing, preparing meals, shopping, managing finances, etc.?: No Are you currently unemployed and looking for a job?: No Are you interested in more education?: No Please select the resources that you would like help with: None Currently or been in a relationship where the following occur: No concerns reported THRIVE Score: 0 VITA-7 AMB Questionnaire VITA-7 Date VITA - 7 assessed: 09/24/24 Source: Developed by Drs. Victoriano Baxter, Odessa Moscoso, Jered Schneider and colleagues, with an educational edwina from [email or web address]. Review of Systems Const Denies chills, Denies fatigue, Denies fever(s), Denies headache(s) and Denies weakness ENT Denies dizziness and Denies headache(s) Card Denies dyspnea Resp Denies cough, Denies dyspnea, Denies wheezing and Denies other (shortness of breath) Musc Denies numbness and Denies tingling Neuro Denies dizziness, Denies headache(s), Denies numbness, Denies tingling and Denies weakness Psych Denies anxiety and Denies depression Endo Denies fatigue Aller/Immun Denies wheezing Physical exam (Primary Care) Vital Signs: Last Vital Signs Temp 98.2 F 11/06/24 09:59 Pulse 53 11/06/24 09:59 Resp 12 11/06/24 09:59 BP 120/60 11/06/24 09:59 Pulse Ox 98 11/06/24 09:59 Oxygen Delivery Method Room Air 11/06/24 09:59 BMI result Body Mass Index 27.5 Tobacco/Smoking Status: Tobacco use Status Tobacco use date assessed 09/24/24 11/06/24 10:02 Patient Tobacco Use Status Current everyday Tobacco 11/06/24 10:02 Tobacco use type Cigarette 11/06/24 10:02 e-Cigarette/Vaping Use Never Used 11/06/24 10:02 Thrive Assessment: Date of Thrive Assessment Date Thrive assessed 09/24/24 11/06/24 10:02 Currently or been in a relationship where the following occur: No concerns reported Const General: well developed; No acute distress Nutritional Appearance: well nourished Orientation/consciousness: patient oriented x3 HENMT Head: Yes normocephalic and Yes atraumatic Eyes General: appearance normal, both eyes and all related structures Pupils: Equal, round and reactive pupils present EOM: EOMs intact bilaterally Resp Effort & Inspection: normal respiratory effort Neuro General: patient oriented x3 and gait normal Cranial nerves: Yes Equal, round and reactive pupils present Psych Affect: normal affect Coding Level of Care Code Est Pt Level 4 (78295) Diagnoses Essential hypertension I10 CAD (coronary artery disease) I25.10 Hyperlipidemia E78.5 Low vitamin D level R79.89 Elevated liver enzymes R74.8 Elevated serum creatinine R79.89 PVD (peripheral vascular disease) I73.9 Assessment & Plan Assessment & Plan (1) Essential hypertension: Code(s): I10 - Essential (primary) hypertension Category: Medical Plan: Blood pressure is controlled. Goal is less than 130/80 He will continue losartan as prescribed Changing hydrochlorothiazide to amlodipine due to changes in creatinine level-see below (2) CAD (coronary artery disease): Code(s): I25.10 - Atherosclerotic heart disease of [place] coronary artery without angina pectoris Category: Medical Plan: Stable Follow-up with Dr. Solo as recommended (3) Hyperlipidemia: Code(s): E78.5 - Hyperlipidemia, unspecified Category: Medical Plan: HDL is still low Encouraged increased exercise as tolerated Continue atorvastatin (4) Low vitamin D level: Code(s): R79.89 - Other specified abnormal findings of blood chemistry Category: Medical Plan: Vitamin-D level is getting rather high Will switch from 03942 IU weekly to 2000 IU daily (5) Elevated liver enzymes: Code(s): R74.8 - Abnormal levels of other serum enzymes Category: Medical Plan: Liver enzymes still elevated though improved from last check Will continue to monitor Hydrate well Encouraged some weight loss Will recheck with next blood draw. If still elevated will consider an ultrasound of the liver (6) Elevated serum creatinine: Code(s): R79.89 - Other specified abnormal findings of blood chemistry Category: Medical Plan: Serum creatinine has elevated further and GFR slightly lower Will discontinue hydrochlorothiazide and use amlodipine for his blood pressure. Continue losartan (7) PVD (peripheral vascular disease): Comment: 07/15/2021- right SFA atherectomy and stent Code(s): I73.9 - Peripheral vascular disease, unspecified Category: Medical Plan: Ongoing leg cramps/claudication with walking Follow-up with Dr. Mckeon. He says he wants to discuss potential surgical intervention Encouraged ongoing walking as tolerated. Medications: New cholecalciferol (vitamin D3) 50 mcg PO DAILY 90 caps 3RF 90 days amlodipine 5 mg PO DAILY 90 tabs 3RF 90 days Discontinued cholecalciferol (vitamin D3) Discontinued Reason: Doctor's Order 1,250 mcg PO QWEEK 4 caps 0RF hydrochlorothiazide Discontinued Reason: Doctor's Order 12.5 mg PO DAILY 90 days 90 tabs 2RF
[2024-11-06 09:59] VITALS: BP 120/60; PULSE 53; RESP 12; TEMP 36.8; O2SAT 98; BMI 27.5
--- OUTSIDE RECORDS SUMMARY | 2024-11-06 09:59 | XMS_ITS | Patient Health Record ---
Author Organization [facility] [place] [address] Care Team Providers Care Bessemer Converter Operator Name Role Phone NO PCP, No Primary Care Provider Evangelista Goss Unavailable [phone] Allergies Allergen (clinical drug ingredient) Drug/Non Drug [...] W/U Status Risk Notes Problem Ischemic cardiomyopathy (160127668) Ischemic cardiomyopathy (I25.5) Active confirmed Problem Syncope and collapse (686761639) Syncope and collapse (R55) Active confirmed Problem Cardiogenic shock (80817200) Cardiogenic shock (R57.0) Active confirmed Problem Dyslipidemia (236418615) Dyslipidemia (E78.5) Active confirmed Problem Atherosclerotic heart disease of [place] coronary artery without angina pectoris (513935087367006) Coronary artery disease involving [place] coronary artery of [place] heart, angina presence unspecified (I25.10) Active confirmed Problem Peripheral vascular disease (222441497) PVD (peripheral vascular disease) (I73.9) Active confirmed [...] [employer]P [employer] [address] [place] [address] [phone] [id number] Ilya Corbett Self - patient is the insured 0 Medical (General) History Medical History History ICD Code CAD s/p admission for inferior wall [place] coomp licated by RV [place] with shock Hypertension Surgical History Surgery Date(Month/Year) PCI 12/2016 PCI RCA GALI x 2 12/2016 Hospitalization History Reason Date(Month/Year) [facility]. 06/26- carotid arter y's
--- OUTSIDE RECORDS SUMMARY | 2024-11-06 09:59 | XMS_ITS | Encounter Summary ---
Author Organization [facility] Address [address] [place] [address] Phone Care Team Providers Care Principal Network Architect Name Role Phone Marck Flood MD Unavailable [phone] Giovanni Rosenthal DO Unavailable Evangelista Jurado MD Unavailable [phone] Corrie Freedman MD Unavailable [phone] Kelton Deleon MD Unavailable [phone] Kelton Deleon MD Primary Care Provider [phone] Tomeka Navarro RN Unavailable [email or web address] Unknown, Unknown Primary Care Provider Alton Gallardo MD Unavailable Encounter Details Date Type Department Care Team (Late st Contact Info) Description 11/18/2020 Procedure Pass [facility] Periop Dept [address] [place] [id number] Social History Tobacco Use Types Packs/Day Years [...] 6:46 PM EDT Tiffanie Love, VICTORINO * [place] Suicide Severity Rating Scale (Screener/Recent Self-Report) Question [...] documented as of this encounter Care Teams Principal Network Architect Relationship Specialty Start Date End Date Kelton Deleon MD [address] [place] [address] [email or web address] PCP - General Internal Medicine 03/10/20 09/07/21 Unknown, Madeleine, PCP - General 09/08/21 Marck Flood MD [address] [place] [address] Historical LMR Provider 05/04/18 Giovanni Rosenthal DO [address] [phone] Urology 05/17/19 Evangelista Jurado MD [address] [place] [address] [address] [place] [address] Cardiology 05/17/19 Corrie Freedman MD [address] [place] [address] [email or web address] Gastroenterology 05/17/19 Kelton Deleon MD [address] [place] [address] [email or web address] Insurance Assigned Provider 08/08/19 06/07/21 Tomeka Navarro RN [address] [place] [address] [email or web address] [facility] Paperhanger Apprentice 05/03/16 03/03/21 Alton [email or web address] Ophthalmology 05/27/22 documented as of this encounter Additional Source Comments The information contained in this document represents components of the legal health record. It is not the complete legal health record.[facility]
== END 2024-11-06 10:25 | disposition home or self-care (01) ==
LOC: HO.HMCFM 09:34
PROVIDERS: PCP Family Medicine; Visit Provider Family Medicine
DX: I10 Essential (primary) hypertension (principal); I25.10 Atherosclerotic heart disease of native coronary artery without angina pectoris; E78.5 Hyperlipidemia, unspecified; R79.89 Other specified abnormal findings of blood chemistry; R74.8 Abnormal levels of other serum enzymes; I73.9 Peripheral vascular disease, unspecified

== ENCOUNTER → 2024-11-06 09:33 | Outpatient (BNVA) | payer MEDICARE, SELFPAY ==
[2022-12-24 05:51] VITALS: BP 120/58; BP 132/56; BMI 27.8
== END ==
PROVIDERS: PCP Family Medicine; Visit Provider Family Medicine
DX: I10 Essential (primary) hypertension (principal); I25.10 Atherosclerotic heart disease of native coronary artery without angina pectoris; E78.5 Hyperlipidemia, unspecified; R79.89 Other specified abnormal findings of blood chemistry; R74.8 Abnormal levels of other serum enzymes; I73.9 Peripheral vascular disease, unspecified
CPT/HCPCS: 99212

== ENCOUNTER 2025-02-11 08:15 | Outpatient (REF) | payer MEDICARE, SELFPAY ==
[2022-12-24 05:51] VITALS: BP 120/58; BP 132/56; BMI 27.8
--- OUTSIDE RECORDS SUMMARY | 2025-02-11 08:37 | XMS_ITS | Encounter Summary ---
Author Organization [facility] Address [address] [place] [address] Phone Care Team Providers Care Proposal Manager Writer Name Role Phone Marck Flood MD Unavailable [phone] Giovanni Rosenthal DO Unavailable Evangelista Jurado MD Unavailable Corrie Freedman MD Unavailable [phone] Kelton Deleon MD Unavailable [phone] Kelton Deleon MD Primary Care Provider [phone] Tomeka Navarro RN Unavailable [email or web address] Unknown, Unknown Primary Care Provider Alton Gallardo MD Unavailable Encounter Details Date Type Department Care Team (Late st Contact Info) Description 11/18/2020 Procedure Pass [facility] Periop Dept [address] [place] [address] Social History Tobacco Use Types Packs/Day Years Used Date Smoking Tobacco: Every Day Cigarettes 0.3 50.9 Started: [birth year]/04/1975 Smokeless Tobacco: Never Comments:quit after [...] 6:46 PM EDT Tiffanie Love, VICTORINO * [place] Suicide Severity Rating Scale (Screener/Recent Self-Report) Question [...] documented as of this encounter Care Teams Proposal Manager Writer Relationship Specialty Start Date End Date Kelton Deleon MD [address] [place] [address] [email or web address] PCP - General Internal Medicine 03/10/20 09/07/21 Unknown, Madeleine, PCP - General 09/08/21 Marck Flood MD [address] [place] [address] [email or web address] Historical LMR Provider 05/04/18 Giovanni Rosenthal DO [address] [phone] Urology 05/17/19 Evangelista Jurado MD [address] [place] [address] [address] [place] [address] Cardiology 05/17/19 Corrie Freedman MD [address] [place] [address] [address] [place] [address] [email or web address] Gastroenterology 05/17/19 Kelton Deleon MD [address] [place] [address] [email or web address] Insurance Assigned Provider 08/08/19 06/07/21 Tomeka Navarro, VICTORINO [address] [place] [address] [email or web address] Insurance Sales Manager 05/03/16 03/03/21 Alton [email or web address] Ophthalmology 05/27/22 documented as of this encounter Additional Source Comments The information contained in this document represents components of the legal health record. It is not the complete legal health record.[facility]
--- OUTSIDE RECORDS SUMMARY | 2025-02-11 08:37 | XMS_ITS | Patient Health Record ---
Author Organization [facility] [place] [address] Care Team Providers Care Dermatological Surgeon Name Role Phone NO PCP, No Primary Care Provider Evangelista Goss Unavailable [phone] Allergies Allergen (clinical drug ingredient) Drug/Non Drug [...] Problem Status W/U Status Risk Notes Problem Inferior myocardial infarction (I21.19) Active confirmed Problem Peripheral vascular disease (976338922) PVD (peripheral vascular disease) (I73.9) Active confirmed Problem Atherosclerotic heart disease of [place] coronary artery without angina pectoris (751265072763757) Coronary artery disease involving [place] coronary artery of [place] heart, angina presence unspecified (I25.10) Active confirmed Problem Dyslipidemia (914928651) Dyslipidemia (E78.5) Active confirmed Problem Cardiogenic shock (15577133) Cardiogenic shock (R57.0) Active confirmed Problem Syncope and collapse (222247856) Syncope and collapse (R55) Active confirmed Problem Ischemic cardiomyopathy (333492941) Ischemic cardiomyopathy (I25.5) Active confirmed Plan Of Treatment Future Test Test Name Order Date Lipid Profile 12/28/2017 Stress Sestamibi Myocardial Perfusion Do butamine 08/03/2019 Lipid Profile 08/03/2019 Insurance Providers Payer Name Payer Address Payer Phone Subscriber Number Group Number Insured Name Patient Relationship to Insured Coverage Start Date Coverage End Date MRP [employer] [address] [place] [address] [phone] [id number] Ilya Corbett Self - patient is the insured 0 Medical (General) History Medical History History ICD Code CAD s/p admission for inferior wall [place] coomp licated by RV [place] with shock Hypertension Surgical History Surgery Date(Month/Year) PCI 12/2016 PCI RCA GALI x 2 12/2016 Hospitalization History Reason Date(Month/Year) [facility]. 06/26- carotid arter y's
--- OUTSIDE RECORDS SUMMARY | 2025-02-11 08:38 | XMS_ITS | Encounter Summary ---
Author Organization [facility] Address [address] [place] [address] [place] [phone] Phone Care Team Providers Care Strategic Advisor Name Role Phone Marck Flood MD Unavailable [phone] Giovanni Rosenthal DO Unavailable Evangelista Jurado MD Unavailable Corrie Freedman MD Unavailable [phone] Kelton Deleon MD Unavailable Kelton Deleon MD Primary Care Provider [phone] Tomeka Navarro RN Unavailable [email or web address] Unknown, Unknown Primary Care Provider Alton Gallardo MD Unavailable Encounter Details Date Type Department Care Team (Late st Contact Info) Description 11/13/2020 Prep for Surgery [facility] [address] [place] [phone] Alirio Shahid MD [address] [place] [phone] Social History Tobacco Use Types Packs/Day Years [...] AM EDT documented as of this encounter H&P Notes * Alirio Shahid MD - 11/13/2020 3:18 PM EDT Images from the original note were not included. Preop H & P 11/13/20 CC: Prostate Cancer History of Present Illness: Ilya Corbett is a 65 y.o. male with prostate cancer. This was initially found on workup of elevated PSA to 4.29 in 2018, prompting TRUS bx. Back then, he had 2/12 cores positive for GS6 disease and decided to pursue active surveillance. His PSA then continued to rise upto 5.88 in 2019. Prostate MRI in April 2020 showed a lesions at the right apex PZ. He subsequently underwent a TRUS-MRI fusion bx on 09/24/[address] Rosenthal. This showed a 24-27 cc gland (TRUS vs. MRI). Pathology showed now GS3+4=7 disease. ?? Path details: - right mid, GS6, 50% - right lateral base, 3+4=7, 60% - right lateral mid, GS6, 40% - Right apex PZ, 3+4=7, 40%, +PNI He has a h/o [place] back in 2016 s/p stent x 2. He takes a daily baby aspirin, and he stopped his aspirin for the biopsy. He also underwent a right carotid endarterectomy in June 2020. No h/o CVA. Has has COPD and HTN as well. He has baseline ED on viagra 60 mg and peyronie's disease. BMI 27. No priorabd surgery. ?? He presents for robotic radical prostatectomy with bilateral PLND. History: Past Medical History: Diagnosis Date ??? Benign prostatic hyperplasia ??? Colon polyp ??? COPD (chronic obstructive pulmonary disease) ??? Coronary artery disease ??? Gastroesophageal reflux disease ??? Hyperlipidemia ??? Hypertensive disorder ??? Malignant neoplasm of prostate ??? Myocardial infarction 12/2016 Past Surgical History: Procedure Laterality Date ??? CAROTID ENDARTERECTOMY Right 06/2020 ??? COLONOSCOPY 2018 ??? CORONARY STENT PLACEMENT ??? FINGER FRACTURE SURGERY left middle finger 30 years ago ??? UNCODED SURGICAL HISTORY Hydrocele Social History Socioeconomic History ??? Marital status: Single Spouse name: Not on file ??? Number of children: Not on file ??? Years of education: Not on file ??? Highest education level: Not on file Occupational History ??? Not on file Tobacco Use ??? Smoking status: Current Every Day Smoker Packs/day: 0.25 Types: Cigarettes Start date: 04/04/1974 ??? Smokeless tobacco: Never Used ??? Tobacco comment: quit after heart attack but started 1 year ago Substance and Sexual Activity ??? Alcohol use: Yes Alcohol/week: 2.0 standard drinks Types: 2 Shots of liquor per week Comment: occasionally maybe at dinner ??? Drug use: Yes Frequency: 7.0 times per week Types: Marijuana ??? Sexual activity: Yes Partners: Female control/protection: None Other Topics Concern ??? Not on file Social History Narrative Grew up mostly in [facility], born in [place], also [place], [place]; Joe and Daphnie. kid. 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 No kids. Recreation: Vinyl record collection. Browsing on the computer. Watch TV like [employer]. Exercise: Does cardio at [employer] on machines. Diet: [place] based on indigestion, so cut out acidic foods; mostly pork chops, rice, noodles. Social Determinants of Health Social determinant risk not applicable to this patient. Family History Problem Relation Age of Onset ??? Alcohol abuse Father Family history of alcoholism ??? Diabetes Father ??? Dementia Mother ??? Dementia Maternal Uncle ??? Kidney disease Half-Sister Allergies Allergen Reactions ??? Lisinopril Cough Current Outpatient Medications Medication Sig Dispense Refill Last Dispense ??? aspirin 81 MG EC tablet Take 81 mg by mouth. Unknown (patient-reported) ??? atorvastatin (LIPITOR) 80 MG tablet Take 80 mg by mouth nightly at bedtime. 1 po qd Unknown (patient-reported) ??? hydroCHLOROthiazide (HYDRODIURIL) 12.5 MG tablet Take 12.5 mg by mouth daily. Unknown (patient-reported) ??? ibuprofen (ADVIL,MOTRIN) 600 MG tablet Take 1 tablet (600 mg total) by mouth every 8 (eight) hours as needed for pain (specific location in comments). (Patient not taking: Reported on 09/25/2020) 30 tablet 0 Unknown (outside pharmacy) ??? levoFLOXacin (LEVAQUIN) 500 MG tablet Take 1 tablet (500 mg total) by mouth daily. 3 tablet 0 Unknown (outside pharmacy) ??? losartan (COZAAR) 50 MG tablet TAKE 1 TABLET BY MOUTH EVERY DAY 90 tablet 3 Unknown (outside pharmacy) ??? metoprolol tartrate (LOPRESSOR) 25 MG tablet 1/2 tab by mouth two times daily Unknown (patient-reported) ??? nicotine (NICODERM CQ) 14 mg/[address] 1 patch onto the skin daily. If insomnia, remove at bedtime 28 patch 1 Unknown (outside pharmacy) ??? [START ON 11/20/2020] nicotine (NICODERM CQ) 7 mg/[address] 1 patch onto the skin daily for 28days. If insomnia, remove at bedtime 28 patch 0 Unknown (outside pharmacy) ??? sildenafiL (REVATIO) 20 mg tablet Take 1 tablet (20 mg total) by mouth daily as needed. 30 tablet 5 Unknown (outside pharmacy) ??? sildenafiL (VIAGRA) 100 mg tablet Take 1 tablet (100 mg total) by mouth as needed. (Patient nottaking: Reported on 10/30/2020) 4 tablet 11 Unknown (outside pharmacy) Current Facility-Administered Medications Medication Dose Route Frequency Provider Last Rate Last Admin ??? tobramycin IM injection 80 mg 80 mg Intramuscular Once Giovanni DO Galo Review of Systems: Review of Systems Constitutional: Negative. HENT: Negative. Eyes: Negative. Respiratory: Negative. Cardiovascular: Negative. Gastrointestinal: Negative. Endocrine: Negative. Genitourinary: as in HPI. Musculoskeletal: Negative. Neurological: Negative. Psychiatric/Behavioral: Negative. All other systems reviewed and are negative. Physical Exam: Gen: NAD Neck: normal ROM, supple Cor: RRR Lungs: normal respiratory effort, CTAB Abd: soft, NT, ND : deferred to OR Extremities: warm, well-perfused Neuro: alert and oriented Pschy: cooperative, normal mood and affect Labs, Imaging & Other Studies: Radiology: No results found. Laboratory: No visits with results within 30 Day(s) from this visit. Latest known visit with results is: Office Visit on 09/25/2020 Component Date Value Ref Range Status ??? TRIGLYCERIDES - EXTERNAL 09/23/2020 104 35 - 150 mg/dL Final ??? SERUM CREATININE - EXTERNAL 09/23/2020 1.3 0.8 - 1.3 mg/dL Final ??? HDL - External 09/23/2020 34* 40 - 80 mg/dL Final ??? Glucose (Fasting) - External 09/23/2020 94 65 - 99 mg/dL Final ??? Total Cholesterol - External 09/23/2020 108 200 mg/dL Final ??? LDL - External 09/23/2020 55 50 - 250 mg/ml Final ??? POTASSIUM LEVEL - EXTERNAL 09/23/2020 4.2 3.4 - 5.0 mmol/L Final ??? WBC 09/23/2020 11.5 Final ??? RBC 09/23/2020 5.77 Final ??? HEMOGLOBIN 09/23/2020 18.1 Final ??? Hematocrit 09/23/2020 51.7 Final ??? MCV 09/23/2020 89.6 Final ??? MCH 09/23/2020 31.4 Final ??? MCHC 09/23/2020 35.0 Final ??? RDW 09/23/2020 14.2 Final ??? Platelet Count 09/23/2020 150 Final ??? MPV 09/23/2020 13.7 Final ??? Neutrophil # 09/23/2020 67.9 Final ??? LYMPHOCYTE # 09/23/2020 18.4 Final ??? Monocyte 09/23/2020 7.2 Final ??? EOSINOPHIL 09/23/2020 5.1 Final ??? BASOPHIL 09/23/2020 1.1 Final ??? Immature Gran % 09/23/2020 0.3 Final ??? NRBC % 09/23/2020 0.0 Final ??? NanoGram EXPIRATION DATE 09/25/2020 2021-09-25 In process ??? NanoGram ACCESS CODE 09/25/2020 [id number] In process ??? [employer] MESSAGE TYPE 09/25/2020 PRESCRIBED In process ??? [employer] URL 09/25/2020 [email or web address] In process Lab Results Component Value Date PSA 5.07 (H) 01/10/2019 PSA 4.29 (H) 08/22/2018 Visit Problems/Diagnosis: Prostate cancer Recommendations/Plan: To OR for robotic radical prostatectomy with bilateral PLND Alirio Shahid MD 11/13/20 documented in this encounter Plan of Treatment Not on file documented as of this encounter Visit Diagnoses Not on filedocumented in this encounter Additional Health Concerns Assessment Noted Time PHQ-2 Depression Total Score: 0 09/12/19 1:08 PM EDT documented as of this encounter Care Teams Strategic Advisor Relationship Specialty Start Date End Date Kelton Deleon MD [address] [place], [place] [id number] [email or web address] PCP - General Internal Medicine 03/10/20 09/07/21 Unknown, Madeleine, PCP - General 09/08/21 Marck Flood MD [address] [place], [place] [phone] [email or web address] Historical LMR Provider 05/04/18 Giovanni Rosenthal DO [address] [place] [phone] [email or web address] Urology 05/17/19 Evangelista Jurado MD [address] [place] [address] Cardiology 05/17/19 Corrie Freedman MD [address] [place] [phone] [email or web address] Gastroenterology 05/17/19 Kelton Deleon MD [address] [place] [phone] [email or web address] Insurance Assigned Provider 08/08/19 06/07/21 Tomeka Navarro, VICTORINO [address] [place] [phone] [email or web address] Coal Digger 05/03/16 03/03/21 Alton Ace [email or web address] Ophthalmology 05/27/22 documented as of this encounter Additional Source Comments The information contained in this document represents components of the legal health record. It is not the complete legal health record.[facility]
--- OUTSIDE RECORDS SUMMARY | 2025-02-11 08:38 | XMS_ITS | Encounter Summary ---
Author Organization [facility] Address [address] [place] [phone] Phone Care Team Providers Care Block Setter Gypsum Name Role Phone Marck Flood MD Unavailable [phone] Giovanni Rosenthal DO Unavailable Evangelista Jurado MD Unavailable Corrie Freedman MD Unavailable Kelton Deleon MD Unavailable [phone] Kelton Deleon MD Primary Care Provider [phone] Tomeka Navarro RN Unavailable [email or web address] Unknown, Unknown Primary Care Provider Alton Gallardo MD Unavailable Encounter Details Date Type Department Care Team (Late st Contact Info) Description 12/11/2020 Procedure [facility] CT Scan [address] [place] [address] Social History Tobacco Use Types Packs/Day Years [...] AM EDT documented as of this encounter Plan of Treatment Not on file documented as of this encounter Visit Diagnoses Not on filedocumented in this encounter Additional Health Concerns Assessment Noted Time PHQ-2 Depression Total Score: 0 09/12/19 21 1:08 PM EDT documented as of this encounter Care Teams Block Setter Gypsum Relationship Specialty Start Date End Date Kelton Deleon MD [address] [place] [phone] [email or web address] PCP - General Internal Medicine 03/10/20 09/07/21 Unknown, Madeleine, MD PCP - General 09/08/21 Marck Flood MD [address] [place] [phone] [email or web address] Historical LMR Provider 05/04/18 Giovanni Rosenthal DO [address] [place] [phone] [email or web address] Urology 05/17/19 Evangelista Jurado MD [address] [place] [phone] Cardiology 05/17/19 Corrie Freedman MD [address] [place] [phone] Gastroenterology 05/17/19 Kelton Deleon MD [address] [place] [phone] Insurance Assigned Provider 08/08/19 06/07/21 Tomeka Navarro RN [address] [place] [address] [email or web address] Under Sheriff 05/03/16 03/03/21 Alton Ace [email or web address] Ophthalmology 05/27/22 documented as of this encounter Additional Source Comments The information contained in this document represents components of the legal health record. It is not the complete legal health record.[facility]
--- OUTSIDE RECORDS SUMMARY | 2025-02-11 08:38 | XMS_ITS | Clinical Summary ---
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 1 po qd Active metoprolol tartrate (LOPRESSOR) 25 MG tablet 1/2 tab by mouth two times daily Active aspirin 81 MG EC tablet Take 81 mg by mouth. Active hydroCHLOROthiaz stefan (HYDRODIURIL) 12.5 MG tablet Take 12.5 mg by mouth daily. 1 Active ibuprofen (ADVIL,MOTRIN) 600 MG tabletIndication s:Right-sided face pain Take 1 tablet (600 mg total) by mouth every 8 (eight) hours as needed for pain (specific location in comments). 30 tablet 1 Active Additional Information Patient not taking.Reported on 09/25/2020 losartan (COZAAR) 50 MG tabletIndication s:Benign essential hypertension TAKE 1 TABLET BY MOUTH EVERY DAY 90 tablet 3 1 Active acetaminophen (TYLENOL) 325 mg tablet Take 2 tablets (650 mg total) by mouth every 6 (six) hours as needed for mild pain or fever. 30 tablet 1 Active amLODIPine (NORVASC) 2.5 MG tablet Take 1 tablet (2.5 mg total) by mouth daily. 30 tablet 1 Active docusate sodium (COLACE) 100 MG capsule Take 1 capsule (100 mg total) by mouth 2 (two) times a day as needed for constipation. 30 capsule 1 Active Additional Information Patient not taking.Reported on 11/25/2020 Active Problems Problem Noted Date Diagnosed Date Abdominal distention 12/11/2020 Assessment & Plan (12/11/2020 4:36 PM EDT): Abdominal distention and recent wound cellulitis with drainage from the left medial trocar site. I think this is not consistent with a simple seroma, and I recommended an urgent CT scan to rule out an intra-abdominal fluid collection. He will get that done today and then I will call him with results and next steps. Fortunately, he does not look in any way toxic today. Postoperative wound cellulitis 12/11/2020 Assessment & Plan (12/17/2020 5:40 PM EDT): Cellulitis has resolved, and he is no longer leaking from the wound. CT scan of the abdomen pelvis was negative for intra-abdominal fluid collection or focal pathology. I think that he did have a small peritoneal leak through the wound which has since healed over. He will let me know if he starts to drain again or if the wound demonstrates any worrisome recurrent erythema, purulent drainage, or significant pain. Reevaluate at next follow-up when he comes to have his initial PSA. Assessment & Plan (12/11/2020 4:36 PM EDT): Status post a course of Keflex, and the cellulitis has completely resolved. Male stress incontinence 11/27/2020 Assessment & Plan (02/25/2021 9:37 AM EST): Essentially dry at night now, but he is still having significant ROSA requiring 6-7 pads a day. He is not consistent about doing his Kegel exercises, so I reinstructed him in those. He will let me know if he continues to struggle, and I can recommend some formal biofeedback/pelvic floor muscle training. Assessment & Plan (01/08/2021 5:18 PM EDT): Significant stress incontinence, but he is noting gradual improvement with Kegel exercises. Assessment & Plan (12/17/2020 5:38 PM EDT): Continue Kegel exercises. Assessment & Plan (12/11/2020 4:35 PM EDT): Continue Kegel exercises. Assessment & Plan (11/27/2020 4:02 PM EDT): Kegel exercises reviewed. Dyslipidemia 10/30/2020 Right-sided face pain 09/11/2020 Assessment & Plan (09/11/2020 1:27 PM EDT): He is reporting a 3 day history of R sided face pain near his jaw. He also feels some slight difficulty swallowing. No fever but has tenderness in his jaw area. He has been rinsing with salty water/saline, which he started doing when his niece, an RN suggested, aside from calling me. 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 - Ibuprofen 600 mg; most likely TMJ d/t tenderness, mild swelling and crepitus w/ opening and closing of mouth against resistance. Also discussed ice pack and eating of soft foods for at least 1 week. - We discussed if no improvement in 1 week, possible parotitis and call me back. Benign essential hypertension 07/08/2020 Assessment & Plan (11/25/2020 12:05 PM EDT): He has been monitoring BP and temperature since discharge. His BP measurements show SBP's 130's and 60-70's of DBP. - We discussed that unless he starts noting BP measurements consistently <100 SBP to continue the amlodipine, until he can establish w/ new doctor in [facility]. Assessment & Plan (07/08/2020 9:55 AM EDT): He reports that he has a machine and takes his BP 2x/day. He was taking HCTZ in the afternoon because it was recommended to him keep them separate. He has not had blurry vision or headaches like when he was sent to hospital for HTN. Plantar wart 05/25/2019 Assessment & Plan (05/25/2019 4:43 PM EST): He has been using bandages w/ Compound W embedded as well as using the liquid, which was as many as 6 but now down to around 2. - We discussed continuing his current regimen, but if he has failure to improve that podiatry or dermatology may be needed. Prostate cancer 09/14/2018 Overview (09/14/2018): Dx 09/2018 Assessment & Plan (02/25/2021 9:33 AM EST): Now roughly 3 months status post robotic radical prostatectomy with bilateral pelvic lymph node dissection for [place] 6P T3a prostate cancer with benign glands of the left apical margin. Initial surveillance PSA at 6 weeks was undetectable. He is due for his quarterly PSA testing, and he would like to do this locally. I will have my clinic note faxed to his new primary care physician to communicate this plan. He also will make it a priority to establish with a new urologist in [facility] once he meets his primary care physician. I asked him to call with any questions or concerns. Assessment & Plan (01/08/2021 5:18 PM EDT): Now approximately 6 weeks status post robotic radical prostatectomy with bilateral pelvic lymph node dissection with path showing Fraze[place]burg 6 disease but with extracapsular extension of the posterior right mid apex and benign glands at the left apical margin. PSA checked today in clinic. I will call him with results. Ultimately, he needs to transition his care to a local urologist in [facility] where he now resides. He is going to talk to his new primary care physician about a referral. In the meantime, I put him in for a PSA to be done in another 6 weeks or so, and he will have his new doctor fax me the results. Assessment & Plan (12/17/2020 5:38 PM EDT): Fraze[place]burg 6 PT3a N0 MX prostate cancer, now roughly 1 month status post radical prostatectomy with lymph node dissection. Initial surveillance PSA in another couple of weeks for high risk pathology. Assessment & Plan (11/27/2020 4:02 PM EDT): Shanelle 6 [id number] prostate cancer with focal extraprostatic extension at the posterior right mid apex and benign glands at the left apical margin. He did have a very small amount of Frazeysburg pattern 4 only comprising 1 to 2% of the tumor. Given the extracapsular disease, I recommended his initial PSA at 6 weeks, as this is an adverse pathologic feature. If that initial PSA is undetectable, we will go to quarterly surveillance. Assessment & Plan (09/14/2018 9:01 PM EDT): Has appt later today with dr hernadez Adenomatous colon polyp 09/14/2018 Assessment & Plan (09/14/2018 9:03 PM EDT): Colonoscopy 06/2018 due 2023 PSA elevation 05/03/2018 Assessment & Plan (08/30/2018 12:57 PM EDT): PSA (Total and Screening) Date Value Ref Range Status 08/22/2018 4.29 (H) 0.00 - 4.00 ng/mL Final Prostate is enlarged, slightly firm at he base on the right All options discussed at length with the patient including TRUS/Bx, continued PSA monitoring, and Genomic Testing. He has elected to undergo TRUS/Bx of the prostate. Risks/expectations are understood. Cipro and instructions provided. Assessment & Plan (05/03/2018 2:20 PM EST): PSA elevated but stable over 2 years at 4 Prostate is enlarged, slightly firm at he base on the right All options discussed at length with the patient including TRUS/Bx, continued PSA monitoring, and Genomic Testing. -He will return in 4 months for PSA recall and DARIN -If the PSA is elevated we will discuss ExosomeDX testing vs TRUS/Bx BPH with urinary obstruction 05/03/2018 Assessment & Plan (08/30/2018 12:57 PM EDT): Denies obstructive voiding sx. Prostate enlarged without nodules Assessment & Plan (05/03/2018 2:18 PM EST): Denies obstructive voiding sx. Prostate enlarged without nodules Thyroid nodule 07/12/2017 Assessment & Plan (09/14/2018 9:01 PM EDT): No palpable lesion Consider us 2019 Chronic coronary artery disease 12/22/2016 Inferior myocardial infarction 12/03/2016 Stenosis of carotid artery 09/03/2016 Peripheral vascular disease 08/26/2016 Assessment & Plan (09/25/2020 1:32 PM EDT): He reports more cramping in the R leg vs the L leg. He retells a story where he was in a large parking lot and needed to rest. Walked further and needed to rest 15 minutes. And then he was ok to walk much more. - Monitor. Continue statin and ASA. Assessment & Plan (05/25/2019 3:27 PM EST): He reports he has R sided carotid stenosis which is already 70% and 50% on the L and can go for surgery if he wants. - Recs per Dr. Murillo whom he sees every 6 months. Primary osteoarthritis, right wrist 04/01/2016 Chronic obstructive pulmonary disease 08/06/2015 Assessment & Plan (09/25/2020 1:48 PM EDT): He denies any productive cough or shortness of breath. Today he is interested in quitting smoking. - We discussed that smoking cessation will retard the progression of COPD as opposed to continuing to smoke. Assessment & Plan (05/25/2019 4:41 PM EST): He reports he quit smoking after his heart attack but recently started smoking 3-4 cigarettes/day. - We discussed cessation again since it is not good for him to be smoking as his pack years puts him at risk for COPD which will not get better if he continues to smoke. Smoker 08/06/2015 Assessment & Plan (11/25/2020 12:05 PM EDT): He reports that he has 5 total, and tends to have more in the morning and taper off from afternoon on He just needs to get over the hump in the morning - We discussed still trying to reduce his cigarettes to 0. Assessment & Plan (09/25/2020 1:28 PM EDT): He reports that he has a cigarette in the morning w/ coffee, then 2-3 in the morning, 2-3 in the afternoon around 4-5 o'clock. - We discussed option and he is electing for nicotine patches. Assessment & Plan (07/08/2020 10:00 AM EDT): He reports that he smokes 5 cigarettes/day but now smoking even less. He feels like being at work took away some of his smoking since he works and didn't take cigarette breaks at work. Now he is at home and has too much free time so his cigarette smoking is increasing a bit. - We discussed trying other things besides cold turkey. Adenocarcinoma of prostate Assessment & Plan (12/11/2020 4:35 PM EDT): P T3a N0 MX Fraze[place] 6 prostate cancer status post robotic radical prostatectomy. Initial PSA at 6 weeks. Assessment & Plan (11/25/2020 12:04 PM EDT): He reports that he is making small recovery. He had a lot of discomfort yesterday with the catheter. He has been taking Tylenol in mornings w/ some ibuprofen, but now is switching. - We discussed that the finding are PIN but no lymph node involvement and he can discuss further with urology. Assessment & Plan (10/08/2020 4:55 PM EDT): The natural history of prostate cancer was explained to the patient at length and the treatment options discussed including radical prostatectomy by open or robotic/laparoscopic approach, external-beam radiotherapy, brachytherapy, and active surveillance, including the possibility of success and complications associated with these approaches. With respect to active surveillance, we discussed the difficulties of estimating the extent of disease preoperatively, the risk of cancer progression, and the risk that salvage might not be possible with progression. However, the favorable 10-year outcomes of active surveillance in appropriately selected patients was conveyed. We discussed prostate cryotherapy, including aspects related to the procedure and outcomes with respect to cancer control, urinary dysfuction, impotence, and morbidity. With respect to seed implants, we discussed risks including, but not limited to, cancer recurrence, exacerbation of voiding symptoms or hematuria, urinary retention, induction of secondary malignancy, and risks of rectal symptoms or bleeding. We also discussed risks of anesthesia including but not limited to FL, CVA, DVT, and PE. With respect to EBRT, including conformal radiotherapy and IMRT, we discussed potential risks including, but not limited to, cancer recurrence, exacerbation of voiding symptoms or hematuria, urinary retention, incontinence, stricture of the urinary tract, induction of secondary malignancy, and rectal symptoms or bleeding. With radiation therapy, we discussed the difficulties of diagnosing recurrent disease at an early stage due to variability in PSA levels and the fact that most patients are not candidates for local salvage therapy when biochemical recurrence is declared. We also discussed the signifcant morbidity of local salvage therapy in terms of perioperative complications, erectile dysfuction and urinary incontinence. With respect to radical prostatectomy, the pros and cons of open versus robot-assisted laparoscopic prostatectomy were discussed. The complications of this procedure were reviewed with the patient and include, but are not limited to, positive surgical margins requiring adjuvant therapy, urinary incontinence, erectile dysfuction, absence of ejaculation, infertility, penile shortening, anastomotic stricture, lymphocele, hemorrhage requiring transfusion, rectal, ureteral, or nerve injury, infection, cardiovascular, pulmonary, thromboembolic, and anesthetic complications, immediate or delayed surgical re-exploration, radiologic intervention, other unforseen complications, and even . For robotic prostatectomy, the additional complications of intraperitoneal anastomotic urine leak and bowel obstruction from adhesions or injury was conveyed. With surgery, we also discussed the potential advantage over radiation therapy in that biochemical recurrence can be detected at a relatively earlier stage and that salvage radiotherapy is successful in controlling recurrent disease in a substantial proportion of patients. He is seeing radiation oncology up in [place] tomorrow to discuss primary radiation for prostate cancer. All questions were answered. Patient verbalized understanding. He is interested in surgery, so I will look for time in the coming months. He understands that he will need clearance from his PCP/web analyst for h/o prior FL s/p stent and recent CEA on aspirin 81 senior care. Assessment & Plan (09/25/2020 1:47 PM EDT): He reports that he had a prostate biopsy earlier this week and was curious about the result. - We discussed that I did not find a result so it might be a couple more days. Assessment & Plan (05/25/2019 4:42 PM EST): He reports that he was found to have biopsy showing adenocarcinoma but he is having surveillance at this time. - Treatment/recs per Dr. Hernadez/Urology Immunizations Immunization Administration Dates Next Due COVID-19 (Pre-01/24) Pfizer Vaccine, mRNA, PF ,08/14/2020 Pneumococcal polysaccharide PPSV23 08/06/2015 Family History Medical History Relation Comments Alcohol abuse Father Family history o f alcoholism Diabetes Father Kidney disease Half-Sister 2 Dementia Maternal Uncle Dementia Mother Relation Status Comments Father (Age 60) Peritonitis Half-Sister 1 Alive Half-Sister 2 (Age 69) Maternal Grandfather (Age 76) Maternal Grandmother (Age 51) Maternal Uncle Mother (Age 73) Paternal Grandfather (Age 80) Paternal Grandmother when d ad was 3 years old Social History Tobacco Use Types Packs/Day Years Used Date Smoking Tobacco: Every Day Cigarettes 0.3 50.9 Started: 04/04/1974 Smokeless Tobacco: Never Tobacco Cessation:Ready to Q uit: Yes; Counseling Given: Yes Comments:quit after heart attack but started 1 year ago Alcohol Use Standard Drinks/Week Comments Yes 2 (1 standard drink = 0.6 oz pur e alcohol) occasionally maybe at dinner Education Answer Date Recorded Are you interested in more education? Not on jeanette e 07/30/2022 Are you concerned about learning? Not on file 07/30/2022 No 07/30/2022 No 07/30/2022 Digital Access Answer Date Recorded No 08/31/2022 No 08/31/2022 No 08/31/2022 Reliable internet access at home? Not on file 08/31/2022 Device with a working camera? Not on file Sex and Gender Information Value Date Recorded Sex Assigned at Male 11/18/2020 6:43 AM EDT Legal Sex Male 2:51 PM EDT Gender Identity Male 11/18/2020 6:43 AM EDT Sexual Orientation Straight 11/18/2020 6: 43 AM EDT Last Filed Vital Signs Vital Sign Reading Time Taken Comments Blood Pressure 167/84 12/13/2020 10:55 AM EDT Pulse 76 12/13/2020 10:55 AM EDT Temperature 36.7 C (98 F) 12/13/2020 10:55 AM EDT Respiratory Rate 16 12/13/2020 10:55 AM EDT Oxygen Saturation 99% 12/13/2020 10:55 AM EDT Inhaled Oxygen Concentration - - Weight 71.2 kg (157 lb) 11/25/2020 11:23 AM EDT Height 160 cm (5' 2.99 ) 11/25/2020 11:23 AM EDT Body Mass Index 27.82 11/25/2020 11:23 AM EDT Plan of Treatment Health Maintenance Due Date Last Done Comments Adult Td,Tdap Booster 1954 BLOOD PRESSURE 1954 SMOKING Hx and SMOKELESS TOBACCO SCREENING 1967 HEPATITIS C SCREENING 1972 ZOSTER VACCINES (1 of 2) 1973 COLOGUARD 1999 FIT TEST 1999 FOBT 1999 SIGMOIDOSCOPY 1999 VIRTUAL COLONOSCOPY 1999 RSV VACCINE (1 - Risk 50-74 years 1-dose series) 2004 PNEUMOCOCCAL VACCINES (50+ years) (2 of 2 - PCV) 08/05/2016 08/06/2015 DEPRESSION SCREENING 09/11/2021 09/11/2020 CREATININE LEVEL 12/11/2021 12/11/2020, , 11/19/2020, Additional history exists POTASSIUM LEVEL 12/11/2021 12/11/2020, 11/02, 11/19/2020, Additional history exists COLONOSCOPY 08/27/2023 08/26/2018, 06/26/2018 COLORECTAL CANCER SCREENING 08/27/2023 INFLUENZA VACCINE (#1) 2024 COVID-19 VACCINE ( season) 2024 09/04/2020, 08/14/2020 ABDOMINAL AORTIC ANEURYSM (AAA) SCREENING Completed 12/11/2020 HEPATITIS A VACCINES Aged Out No long er eligible based on patient's age to complete this topic HIB VACCINES Aged Out No longer eligi ble based on patient's age to complete this topic MENINGOCOCCAL VACCINES (ACWY) Aged Out No longer eligible based on patient's age to complete this topic MENINGOCOCCAL VACCINES (B) Aged Out N o longer eligible based on patient's age to complete this topic Medical Devices Implanted Type 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 Device Identifier Shelf Expiration Date Model / Serial / Lot Cardiac Stents Procedures Procedure Name Priority Date/Time Associated Diagnosis Comments CT ABDOMEN/PELVIS WITH CONTRAST Urgent/patient waiting 12/11/2020 6:56 PM EDT Abdominal distention BASIC METABOLIC PANEL (BMP) Routine 12/11/2020 3:50 PM EDT Abdominal distention HM COLONOSCOPY FOR RESULT ENTRY ONLY Routine 08/26/2018 from Last 3 Months or Most Recently Relevant to Health Maintenance Results * CT ABDOMEN/PELVIS WITH CONTRAST (12/11/2020 6:56 PM EDT) Anatomical Region Laterality Modality Abdomen, Pelvis Computed Tomogra phy 12/11/2020 7:04 PM EDT Impressions 12/11/2020 7:15 PM EDT The patient is status post prostatectomy. There is trace perihepatic low-attenuation fluid and a small amount of fluid in the pelvis likely postsurgical. There is no abscess. There is no retroperitoneal hemorrhage. There is a small hiatal hernia. Narrative 12/11/2020 7:15 PM EDT Procedure: CT ABDOMEN/PELVIS WITH CONTRAST 12/11/2020 6:43 PM Indications: * Abdominal distension; copious drainage from wound 2-3 weeks s/p prostatectomy Comparison: None TECHNIQUE: Multidetector row CT volumetric acquisition of the abdomen and pelvis was performed following administration of low-osmolar intravenous contrast material via power injector. Targeted CT protocols using this patient's history and dose modulation techniques based on this patient's anatomy were employed to minimize radiation exposure. Image post-processing was performed in the coronal and sagittal planes. FINDINGS: LOWER THORAX: Lung: Limited evaluation of the lung bases is notable for mild bibasilar atelectasis. Pleura: There is no pleural effusion. There is no pneumothorax. Heart: Partially visualized heart is normal in size with coronary artery calcifications noted. Pericardium: There is no pericardial effusion. ABDOMEN Hepatobiliary: The liver is homogeneous with no focal hepatic lesions identified. No biliary ductal dilatation. The portal vein and SMV are patent. Gallbladder: The gallbladder is contracted. There are no radiopaque gallstones. There is no pericholecystic inflammatory change. Spleen: Homogeneous in density, with no focal lesions identified. There is a 1.2 cm splenule in the left upper quadrant. Pancreas: Homogeneous in density, with no focal masses or pancreatic ductal dilation identified. Adrenals: Normal in size and configuration, with no discrete nodules identified. Kidneys/Ureters: No hydronephrosis or suspicious masses. There is no perinephric stranding. Gastrointestinal tract: There is a small hiatal hernia. The appendix is normal. There is a minimal amount of fecal material in the large bowel. There is no bowel obstruction. There is no free air. There is trace perihepatic fluid. There is a small amount of low attenuation fluid in the pelvis, likely postsurgical. There is no abscess. Lymph nodes: Retroperitoneal and mesenteric lymph nodes are not enlarged. Vessels: There is no abdominal aortic aneurysm. There is severe atherosclerosis. PELVIS: Pelvic organs: There is postsurgical change consistent with provided history of prostatectomy. The urinary bladder is unremarkable. Retroperitoneum/Intraperitoneal: There is no retroperitoneal hemorrhage. There is no intra-abdominal abscess. Lymph nodes: Pelvic sidewall and inguinal lymph nodes are not enlarged. Soft tissues: There are small fat-containing inguinal hernias. There is induration of the fat in the abdominal wall consistent with postsurgical change. There is no abscess. Bones: No acute abnormality. Procedure Note Court Campbell DO - 12/11/2020 Procedure: CT ABDOMEN/PELVIS WITH CONTRAST 12/11/2020 6:43 PM Indications: * Abdominal distension; copious drainage from wound 2-3 weekss/p prostatectomy Comparison: None TECHNIQUE: Multidetector row CT volumetric acquisition of the abdomen andpelvis was performed following administration of low-osmolar intravenouscontrast material via power injector. Targeted CT protocols using thispatient's history and dose modulation techniques based on this patient'sanatomy were employed to minimize radiation exposure. Imagepost-processing was performed in the coronal and sagittal planes. FINDINGS: LOWER THORAX: Lung: Limited evaluation of the lung bases is notable for mild bibasilaratelectasis. Pleura: There is no pleural effusion. There is no pneumothorax. Heart: Partially visualized heart is normal in size with coronary arterycalcifications noted. Pericardium: There is no pericardial effusion. ABDOMEN Hepatobiliary: The liver is homogeneous with no focal hepatic lesionsidentified. No biliary ductal dilatation. The portal vein and SMV arepatent. Gallbladder: The gallbladder is contracted. There are no radiopaquegallstones. There is no pericholecystic inflammatory change. Spleen: Homogeneous in density, with no focal lesions identified. There amos 1.2 cm splenule in the left upper quadrant. Pancreas: Homogeneous in density, with no focal masses or pancreaticductal dilation identified. Adrenals: Normal in size and configuration, with no discrete nodulesidentified. Kidneys/Ureters: No hydronephrosis or suspicious masses. There is noperinephric stranding. Gastrointestinal tract: There is a small hiatal hernia. The appendix isnormal. There is a minimal amount of fecal material in the large bowel.There is no bowel obstruction. There is no free air. There is traceperihepatic fluid. There is a small amount of low attenuation fluid in thepelvis, likely postsurgical. There is no abscess. Lymph nodes: Retroperitoneal and mesenteric lymph nodes are notenlarged. Vessels: There is no abdominal aortic aneurysm. There is severeatherosclerosis. PELVIS: Pelvic organs: There is postsurgical change consistent with providedhistory of prostatectomy. The urinary bladder is unremarkable. Retroperitoneum/Intraperitoneal: There is no retroperitoneal hemorrhage.There is no intra-abdominal abscess. Lymph nodes: Pelvic sidewall and inguinal lymph nodes are not enlarged. Soft tissues: There are small fat-containing inguinal hernias. There isinduration of the fat in the abdominal wall consistent with postsurgicalchange. There is no abscess. Bones: No acute abnormality. IMPRESSION: The patient is status post prostatectomy. There is trace perihepatic low-attenuation fluid and a small amount offluid in the pelvis likely postsurgical. There is no abscess. There is noretroperitoneal hemorrhage. There is a small hiatal hernia. us Alirio Shahid MD IMG CT ABD/PELVIS Final Result * Basic metabolic panel (12/11/2020 3:50 PM EDT) SODIUM 139 136 - 145 mmol/L [facility] CHLORIDE 101 98 - 107 mmol/L [facility] POTASSIUM 4.3 3.6 - 5.1 mmol/L [facility] CO2 28 22 - 32 mmol/L [facility] BUN 20 6 - 20 mg/dL [facility] CREATININE 1.12 0.6 - 1.3 mg/dL [facility] GLUCOSE 82 65 - 99 mg/dL [facility] CALCIUM 9.1 8.9 - 10.3 mg/dL [facility] EGFR 68 60 - 128 mL/min/1.7 3m2 [facility] Comment:Estimated glomerular filtration rate calculated using the CKD-EPI equation. ANION GAP 10 3 - 17 mmol/L [facility] Blood 12/11/2020 3:50 PM EDT 12/11/2020 7:00 PM EDT Alirio Shahid MD LAB BLOOD BKR [place]AB[place] [address], [facility] [phone] * COLONOSCOPY FOR RESULT ENTRY ONLY (08/26/2018) Colonoscopy colocn polyp Historical Provider HEALTH MAINTENANCE Final Result from Last 3 Months or Most Recently Relevant to Health Maintenance Insurance [employer] REPLAC[employer] REPLACEMENT [employer] PREFERRED HMO REPLACEMENT [employer] REPLACEMENT [employer] REPLAC[employer] REPLACEMENT [employer] RE[employer]ACEMENT Advance Directives For more information, please contact: [phone] (9AM - 5PM [facility], Tuesday-Tuesday) Documents on File Type Date Recorded Patient Ditcher Operator Expl anation Healthcare Proxy 11/21/2020 11:35 AM Care Teams Oiler And Greaser Relationship Specialty Start Date End Date Unknown, Unknown, PCP - General 09/08/21 Marck Flood MD [address] [place] [address] [email or web address] Historical LMR Provider 05/04/18 Giovanni Hernadez DO [address] [place] [address] [address] [place] [address] Urology 05/17/19 Evangelista Jurado MD [address] [address] Cardiology 05/17/19 Corrie Freedman MD [address] [place] [address] [email or web address] Gastroenterology 05/17/19 Alton Ace [email or web address] Ophthalmology 05/27/22 Additional Source Comments The information contained in this document represents components of the legal health record. It is not the complete legal health record.[facility]
--- OUTSIDE RECORDS SUMMARY | 2025-02-11 08:38 | XMS_ITS | Encounter Summary ---
Author Organization [facility] Address [address] [place] [address] Phone Care Team Providers Care Yoker Machine Operator Name Role Phone Marck Flood MD Unavailable [phone] Marck Flood MD Primary Care Provider + [phone] Marck Flood MD Unavailable [phone] Kelton Deleon MD Primary Care Provider + [phone] Giovanni Rosenthal DO Unavailable Evangelista Jurado MD Unavailable [phone] Corrie Freedman MD Unavailable [phone] Barbara Torres RN Unavailable [email or web address] Kelton Deleon MD Unavailable [phone] Kelton Deleon MD Primary Care Provider + [phone] Tomeka Navarro RN Unavailable [email or web address] Unknown, Unknown Primary Care Provider Alton Gallardo MD Unavailable Encounter Details Date Type Department Care Team (Late st Contact Info) Description 06/26/2018 Procedure Pass [facility] - Endoscopy - [place] [address] [place] [address] Social History Tobacco Use Types Packs/Day Years Used Date Smoking Tobacco: Some Days Cigarettes Started: 1974 Smokeless Tobacco: Never Alcohol Use Standard Drinks/Week Comments No 0 (1 standard drink = 0.6 oz pur e alcohol) Sex and Gender Information Value Date Recorded Sex Assigned at Male 11/18/2020 6:43 AM EDT Legal Sex Male 2:51 PM EDT Gender Identity Male 11/18/2020 6:43 AM EDT Sexual Orientation Straight 11/18/2020 6: 43 AM EDT documented as of this encounter Plan of Treatment Not on file documented as of this encounter Visit Diagnoses Not on filedocumented in this encounter Care Teams Yoker Machine Operator Relationship Specialty Start Date End Date Marck Flood MD [address] [place] [address] PCP - General 04/21/18 04/23/19 Kelton Deleon MD [address] [place] [address] PCP - General Internal Medicine 04/24/19 03/09/20 Kelton Deleon MD [address] [place] [address] PCP - General Internal Medicine 03/10/20 09/07/21 Unknown, MD Madeleine PCP - General 09/08/21 Marck Flood MD [address] [place] [address] Insurance Assigned Provider 10/08/17 08/08/19 Marck Flood MD [address] [place] [address] Historical LMR Provider 05/04/18 Giovanni Rosenthal DO [address] [place] [phone] Urology 05/17/19 Evangelista Jurado MD [address] [place] [address] Cardiology 05/17/19 Corrie Freedman MD [address] [place] [address] [email or web address] Gastroenterology 05/17/19 Barbara Torres RN [address] [place] [address] [email or web address] Ostomy Nurse 06/15/19 04/14/20 Kelton Deleon MD [address] [place] [address] [email or web address] Insurance Assigned Provider 08/08/19 06/07/21 Tomeka Navarro RN [address] [place] [address] [email or web address]. ORG TMP Ostomy Nurse 05/03/16 03/03/21 Alton Ace [email or web address] Ophthalmology 05/27/22 documented as of this encounter Additional Source Comments The information contained in this document represents components of the legal health record. It is not the complete legal health record.[facility]
[2025-02-11 12:25] LABS: Alanine Aminotransferase 45 U/L (0-40); Albumin Level 4.2 g/dL (3.5-5.0); Alkaline Phosphatase 75 U/L (39-117); Anion Gap 11 (12-20); Aspartate Amino Transferase 41 U/L (5-37); Blood Urea Nitrogen 22 mg/dL (9-16); Calcium 9.3 mg/dL (8.4-10.2); Carbon Dioxide 26 mmol/L (22-29); Chloride 108 mmol/L (96-108); Estimated Glomerular Filt Rate 55; Potassium 4.5 mmol/L (3.3-5.1); Sodium 140 mmol/L (135-145); Total Protein 6.7 g/dL (6.5-8.0)
[2025-02-11 15:21] LABS: Microalbum/Creatinine Ratio Ur 4.8 ug/mg cr (<30)
== END 2025-02-11 08:16 | disposition home or self-care (01) ==
LOC: HO.WFDLDS 08:15
PROVIDERS: Visit Provider Family Medicine
DX: Z00.00 Encounter for general adult medical examination without abnormal findings (principal); I10 Essential (primary) hypertension; I25.10 Atherosclerotic heart disease of native coronary artery without angina pectoris; E78.5 Hyperlipidemia, unspecified
CPT/HCPCS: 36415; 80053; 82043; 82570

== ENCOUNTER 2025-02-14 08:16 | Outpatient (AMB) | payer MEDICARE, SELFPAY ==
[2022-12-24 05:51] VITALS: BP 120/58; BP 132/56; BMI 27.8
--- OUTSIDE RECORDS SUMMARY | 2025-02-14 08:31 | XMS_ITS | Patient Health Record ---
Author Organization [facility] [place] [address] Care Team Providers Care Lozenge Maker Helper Name Role Phone NO PCP, No Primary Care Provider Evangelista Goss Unavailable [phone] Allergies Allergen (clinical drug ingredient) Drug/Non Drug [...] (I21.19) Active confirmed Problem Peripheral vascular disease (626111477) PVD (peripheral vascular disease) (I73.9) Active confirmed Problem Atherosclerotic heart disease of [place] coronary artery without angina pectoris (775905918767800) Coronary artery disease involving [place] coronary artery of [place] heart, angina presence unspecified (I25.10) Active confirmed Problem Dyslipidemia (751991289) Dyslipidemia (E78.5) Active confirmed Problem Cardiogenic shock (97841079) Cardiogenic shock (R57.0) Active confirmed Problem Syncope and collapse (955942416) Syncope and collapse (R55) Active confirmed Problem Ischemic cardiomyopathy (210472164) Ischemic cardiomyopathy (I25.5) Active confirmed Plan Of Treatment Future Test Test Name Order Date Lipid Profile 12/28/2017 Stress Sestamibi Myocardial Perfusion Do butamine 08/03/2019 Lipid Profile 08/03/2019 Insurance Providers Payer Name Payer Address Payer Phone Subscriber Number Group Number Insured Name Patient Relationship to Insured Coverage Start Date Coverage End Date MRP [employer] [address] [place] [address] [phone] [id number] Ilya Corbett Self - patient is the insured 0 Medical (General) History Medical History History ICD Code CAD s/p admission for inferior wall [place] coomp licated by RV [place] with shock Hypertension Surgical History Surgery Date(Month/Year) PCI 12/2016 PCI RCA GALI x 2 12/2016 Hospitalization History Reason Date(Month/Year) [facility]. 06/26- carotid arter y's
--- OUTSIDE RECORDS SUMMARY | 2025-02-14 08:31 | XMS_ITS | Encounter Summary ---
Author Organization [facility] Address [address] [place] [address] [place] [address] Phone Care Team Providers Care Varnish Supervisor Name Role Phone Marck Flood MD Unavailable [phone] Giovanni Rosenthal DO Unavailable Evangelista Jurado MD Unavailable [phone] Corrie Freedman MD Unavailable Kelton Deleon MD Unavailable [phone] Kelton Deleon MD Primary Care Provider [phone] Tomeka Navarro RN Unavailable [email or web address] Unknown, Unknown Primary Care Provider Alton Gallardo MD Unavailable Encounter Details Date Type Department Care Team (Late st Contact Info) Description 11/13/2020 Prep for Surgery [facility] [address] [place] [address] Alirio Shahid MD [address] [place] [phone] Social History Tobacco Use Types Packs/Day Years [...] 3+4=7, 40%, +PNI He has a h/o [place] back in 2016 s/p stent x 2. [...] Social History Narrative Grew up [place] [facility], [place], [place]; [employer] and [place]. kid. 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 No kids. Recreation: Vinyl record collection. Browsing on the computer. Watch TV like [employer], [employer]. Exercise: Does cardio at [employer] on machines. Diet: [place] based on indigestion, so cut out acidic [...] ??? NRBC % 09/23/2020 0.0 Final ??? [employer] EXPIRATION DATE 09/25/2020 2021-09-25 In process ??? [employer] ACCESS CODE 09/25/2020 [id number] In process ??? [employer] MESSAGE TYPE 09/25/2020 PRESCRIBED In process ??? [employer] URL 09/25/2020 [email or web address] In process Lab Results Component Value Date [...] documented as of this encounter Care Teams Varnish Supervisor Relationship Specialty Start Date End Date Kelton Deleon MD [address] [place], [place] [phone] [email or web address] PCP - General Internal Medicine 03/10/20 09/07/21 Unknown, Madeleine, PCP - General 09/08/21 Marck Flood MD [address] [place], [place] [phone] [email or web address] Historical LMR Provider 05/04/18 Giovanni Rosenthal DO [address] [place] [phone] [email or web address] Urology 05/17/19 Evangelista Jurado MD [address] [place] [address] Cardiology 05/17/19 Corrie Freedman MD [address] [place] [address] [email or web address] Gastroenterology 05/17/19 Kelton Deleon MD [address] [place] [address] [email or web address] Insurance Assigned Provider 08/08/19 06/07/21 Tomeka Navarro, VICTORINO [address] [place] [address] [email or web address]. [facility] [employer] Worker 05/03/16 03/03/21 Alton Ace [email or web address] Ophthalmology 05/27/22 documented as of this encounter Additional Source Comments The information contained in this document represents components of the legal health record. It is not the complete legal health record.[facility]
--- OUTSIDE RECORDS SUMMARY | 2025-02-14 08:31 | XMS_ITS | Encounter Summary ---
Author Organization [facility] Address [address] [place] [address] Phone Care Team Providers Care Parts Counter Representative Name Role Phone Marck Folod MD Unavailable [phone] Giovanni Rosenthal DO Unavailable Evangelista Jurado MD Unavailable [phone] Corrie Freedman MD Unavailable Kelton Deleon MD Unavailable [phone] Kelton Deleon MD Primary Care Provider [phone] Tomeka Navarro RN Unavailable [email or web address] Unknown, Unknown Primary Care Provider Alton Gallardo MD Unavailable Encounter Details Date Type Department Care Team (Late st Contact Info) Description 11/18/2020 Procedure Pass [facility] Periop Dept [address] [place] [address] Social History Tobacco Use Types Packs/Day Years [...] 6:46 PM EDT Tiffanie Love, VICTORINO * Early Suicide Severity Rating Scale (Screener/Recent Self-Report) Question [...] documented as of this encounter Care Teams Parts Counter Representative Relationship Specialty Start Date End Date Kelton Deleon MD [address] [place] [address] [email or web address] PCP - General Internal Medicine 03/10/20 09/07/21 Unknown, Madeleine, PCP - General 09/08/21 Marck Flood MD [address] [place] [address] [email or web address] Historical LMR Provider 05/04/18 Giovanni Rosenthal DO [address] [phone] Urology 05/17/19 Evangelista Jurado MD [address] [place] [address] [address] [place] [address] Cardiology 05/17/19 Corrie Freedman MD [address] [place] [address] [address] [place] [address] [email or web address] Gastroenterology 05/17/19 Kelton Deleon MD [address] [place] [address] [email or web address] Insurance Assigned Provider 08/08/19 06/07/21 Tomeka Navarro, VICTORINO [address] [place] [address] [email or web address]. [facility] Extension Service Supervisor 05/03/16 03/03/21 Alton Ace [email or web address] Ophthalmology 05/27/22 documented as of this encounter Additional Source Comments The information contained in this document represents components of the legal health record. It is not the complete legal health record.[facility]
--- NOTE | 2025-02-14 08:32 | A.OFFPC_ITS ---
Vital Signs 02/14/25 08:37 Height 5 ft 4 in Weight 160 lb 6 oz BMI 27.5 BP 110/60 Blood Pressure Location Lt brachial Position Sitting Respiration 14 Pulse 52 Pulse Source Pulse Oximeter Temp 98.3 F Temp Source Oral Pulse Oximetry (%) 98 Oxygen Delivery Method Room Air Intake Visit Reasons: F/U on lab work. Intake Note: patient is scheduled to follow up on lab results with pcp Complex Commercial Litigation Paralegal Required: No Allergies No Known Allergies Allergy (Verified 02/14/25 08:36) Medication List - Last Reconciled 02/14/25 by Brett Swift MD amlodipine 5 mg PO DAILY 90 days aspirin (Adult Low Dose Aspirin) 81 mg PO DAILY atorvastatin 80 mg PO DAILY 90 days cholecalciferol (vitamin D3) 50 mcg PO DAILY 90 days diclofenac sodium 1% 4 grams topical QID PRN 30 days losartan 100 mg PO DAILY 3 months Tobacco use date assessed: 09/24/24 Dental Screening Dental Screen Date: 09/24/24 HPI F/U on lab work. HPI Details 69 y/o male presents to f/u HTN, labs. Labs drawn 02/11/25. Reviewed labs with pt. Ongoing elevated liver enzymes AST 41, ALT 45. Microalb/reat ratio 4.8. BP today 110/60, 52p. Denies any issues with his amlodipine 5mg. He is also on losartan 100mg daily. HPI Comments History of Present Illness Details Documentation assistance for Brett Swift MD, was provided by Lauri Lyn,? Electrical Tech on 02/13/2025 at 8:54 AM EST. I, Dr. Swift, have read, observed, and verified documentation. ? PFSH Medical History [place] (myocardial infarction) PVD (peripheral vascular disease) Heart attack High cholesterol Hypertension Surgical History S/P cardiac catheterization Hx of colonoscopy History of esophagogastroduodenoscopy (EGD) History of carotid angioplasty History of prostate surgery History of heart artery stent Family History Maternal Grandfather Colon cancer Social History Housing: House Alcohol intake: current Alcohol intake frequency: a few times a month Patient Tobacco Use Status: Current everyday Tobacco user Tobacco use type: Cigarette Cigarettes Per Day: 2 Years Smoked: 50 e-Cigarette/Vaping Use: Never Used Second Hand Smoke Exposure: No service: No Current occupational status: retired Current occupational exposures/hazards: No Cognitive needs: No Hearing needs: No Vision needs: No Questionnaire Thrive Questionnaire Date Thrive assessed: 04/18/24 I am a: Patient What is your living situation today?: I have a steady place to live Within the past 12 months, did the food you bought not last and you didn't have the money to get more?: I choose not to answer this question Within the past 12 months, did you worry whether your food would run out before you got money to buy more?: I choose not to answer this question Do you have trouble paying for medicines?: No Do you have trouble getting transportation to medical appointments?: No Do you have trouble paying your heating and electricity bill?: No Do you have trouble taking care of your child, family member or friend?: No Do you have trouble with day-to-day activities such as bathing, preparing meals, shopping, managing finances, etc.?: No Are you currently unemployed and looking for a job?: No Are you interested in more education?: No Please select the resources that you would like help with: None Currently or been in a relationship where the following occur: No concerns reported THRIVE Score: 0 VITA-7 AMB Questionnaire VITA-7 Date VITA - 7 assessed: 09/24/24 Source: Developed by Drs. Victoriano Baxter, Odessa Moscoso, Jered Schneider and colleagues, with an educational edwina from [employer]. Review of Systems Const Denies chills, Denies fatigue, Denies fever(s), Denies headache(s) and Denies weakness ENT Denies dizziness and Denies headache(s) Card Denies dyspnea Resp Denies cough, Denies dyspnea, Denies wheezing and Denies other (shortness of breath) Musc Denies numbness and Denies tingling Neuro Denies dizziness, Denies headache(s), Denies numbness, Denies tingling and Denies weakness Psych Denies anxiety and Denies depression Endo Denies fatigue Aller/Immun Denies wheezing Physical exam (Primary Care) Vital Signs: Last Vital Signs Temp 98.3 F 02/14/25 08:37 Pulse 52 02/14/25 08:37 Resp 14 02/14/25 08:37 BP 110/60 02/14/25 08:37 Pulse Ox 98 02/14/25 08:37 Oxygen Delivery Method Room Air 02/14/25 08:37 BMI result Body Mass Index 27.5 Tobacco/Smoking Status: Tobacco use Status Tobacco use date assessed 09/24/24 02/14/25 08:33 Patient Tobacco Use Status Current everyday Tobacco 02/14/25 08:33 Tobacco use type Cigarette 02/14/25 08:33 e-Cigarette/Vaping Use Never Used 02/14/25 08:33 Thrive Assessment: Date of Thrive Assessment Date Thrive assessed 04/18/24 02/14/25 08:33 Currently or been in a relationship where the following occur: No concerns reported Const General: well developed; No acute distress Nutritional Appearance: well nourished Orientation/consciousness: patient oriented x3 HENMT Head: Yes normocephalic and Yes atraumatic Eyes General: appearance normal, both eyes and all related structures Pupils: Equal, round and reactive pupils present EOM: EOMs intact bilaterally Resp Effort & Inspection: normal respiratory effort Auscultation: clear to auscultation bilaterally Cardio Rate: regular rate Rhythm: regular rhythm Heart sounds: S1 normal heart sound present, S2 normal heart sound present, no gallops, no murmurs and no rubs Neuro General: patient oriented x3 and gait normal Cranial nerves: Yes Equal, round and reactive pupils present Psych Affect: normal affect Coding Level of Care Code Est Pt Level 4 (03686) Diagnoses Essential hypertension I10 CAD (coronary artery disease) I25.10 Stage 3a chronic kidney disease (CKD) N18.31 Elevated liver enzymes R74.8 Assessment & Plan Assessment & Plan (1) Essential hypertension: Code(s): I10 - Essential (primary) hypertension Category: Medical Plan: Blood pressure is well controlled. Goal is less than 130/80 Had discontinued hydrochlorothiazide and replaced it with amlodipine due to rising creatinine levels. Tolerating medication regimen well. Continue current medication regimen (2) CAD (coronary artery disease): Code(s): I25.10 - Atherosclerotic heart disease of [place] coronary artery without angina pectoris Category: Medical Plan: Stable (3) Stage 3a chronic kidney disease (CKD): Code(s): N18.31 - Chronic kidney disease, stage 3a Category: Medical Plan: Creatinine have been rising and has mildly low GFR These have improved with discontinuation of hydrochlorothiazide Mildly low GFR though improved Will continue to monitor Hydrate well (4) Elevated liver enzymes: Code(s): R74.8 - Abnormal levels of other serum enzymes Category: Medical Plan: Ongoing elevated liver enzymes He did have an ultrasound of his abdomen in 2022 which did not show any hepatic lesions Will recheck this He denies drinking alcohol or using much Tylenol Encouraged good hydration and weight loss Orders: Orders Comprehensive Met. Panel Today N18.31 - Chronic kidney disease, stage 3a US abdomen billy w elastography Today R74.8 - Abnormal levels of other serum enzymes
--- OUTSIDE RECORDS SUMMARY | 2025-02-14 08:32 | XMS_ITS | Encounter Summary ---
Author Organization [facility] Address [address] [place] [address] Phone Care Team Providers Care Waiter/Waitress Name Role Phone Marck Flood MD Unavailable [phone] Marck Flood MD Primary Care Provider + [phone] Marck Flood MD Unavailable [phone] Kelton Deleon MD Primary Care Provider + [phone] Giovanni Rosenthal DO Unavailable Evangelista Jurado MD Unavailable [phone] Corrie Freedman MD Unavailable [phone] Barbara Torres RN Unavailable [email or web address] Kelton Deleon MD Unavailable [phone] Kelton Deleon MD Primary Care Provider + [phone] Tomeka Navarro RN Unavailable [email or web address] Unknown, Unknown Primary Care Provider Alton Gallardo MD Unavailable Encounter Details Date Type Department Care Team (Late st Contact Info) Description 06/26/2018 Procedure Pass [facility] - Endoscopy - [place] [address] [place] [address] Social History Tobacco Use Types Packs/Day Years [...] on filedocumented in this encounter Care Teams Waiter/Waitress Relationship Specialty Start Date End Date Marck Flood MD [address] [place] [address] PCP - General 04/21/18 04/23/19 Kelton Deleon MD [address] [place] [address] PCP - General Internal Medicine 04/24/19 03/09/20 Kelton Deleon MD [address] [place] [address] PCP - General Internal Medicine 03/10/20 09/07/21 Unknown, MD Madeleine PCP - General 09/08/21 Marck Flood MD [address] [place] [address] Insurance Assigned Provider 10/08/17 08/08/19 Marck Flood MD [address] [place] [address] Historical LMR Provider 05/04/18 Giovanni Rosenthal DO [address] [place] [phone] Urology 05/17/19 Evangelista Jurado MD [address] [place] [address] Cardiology 05/17/19 Corrie Freedman MD [address] [place] [address] [email or web address] Gastroenterology 05/17/19 Barbara Torres RN [address] [place] [address] [email or web address] TMP Recruitment And Outreach Assistant 06/15/19 04/14/20 Kelton Deleon MD [address] [place] [address] [email or web address] Insurance Assigned Provider 08/08/19 06/07/21 Tomeka Navarro RN [address] [place] [address] [email or web address] TMP Recruitment And Outreach Assistant 05/03/16 03/03/21 Alton Ace [email or web address] Ophthalmology 05/27/22 documented as of this encounter Additional Source Comments The information contained in this document represents components of the legal health record. It is not the complete legal health record.[facility]
--- OUTSIDE RECORDS SUMMARY | 2025-02-14 08:33 | XMS_ITS | Encounter Summary ---
Author Organization [facility] Address [address] [place] [address] Phone Care Team Providers Care Vacation Guide Name Role Phone Marck Flood MD Unavailable [phone] Giovanni Rosenthal DO Unavailable Evangelista Jurado MD Unavailable [phone] Corrie Freedman MD Unavailable Kelton Deleon MD Unavailable [phone] Kelton Deleon MD Primary Care Provider [phone] Tomeka Navarro RN Unavailable [email or web address] Unknown, Unknown Primary Care Provider Alton Gallardo MD Unavailable Encounter Details Date Type Department Care Team (Late st Contact Info) Description 12/11/2020 Procedure Pass [facility] Scan [address] [place] [address] Social History Tobacco Use Types Packs/Day Years [...] documented as of this encounter Care Teams Vacation Guide Relationship Specialty Start Date End Date Kelton Deleon MD [address] [place] [address] [email or web address] PCP - General Internal Medicine 03/10/20 09/07/21 Unknown, Madeleine, MD PCP - General 09/08/21 Marck Flood MD [address] [place] [address] [email or web address] Historical LMR Provider 05/04/18 Giovanni Rosenthal DO [address] [place] [phone] [email or web address] Urology 05/17/19 Evangelista Jurado MD [address] [place] [address] Cardiology 05/17/19 Corrie Freedman MD [address] [place] [address] Gastroenterology 05/17/19 Kelton Deleon MD [address] [place] [address] Insurance Assigned Provider 08/08/19 06/07/21 Tomeka Navarro RN [address] [place] [address] [email or web address] Service Technician 05/03/16 03/03/21 Alton [email or web address] Ophthalmology 05/27/22 documented as of this encounter Additional Source Comments The information contained in this document represents components of the legal health record. It is not the complete legal health record.[facility]
--- OUTSIDE RECORDS SUMMARY | 2025-02-14 08:33 | XMS_ITS | Clinical Summary ---
Author Organization [facility] Address [address] [address] Phone Care Team Providers Care Bullet Slugs Inspector Name Role Phone Marck Flood MD Unavailable Giovanni Hernadez DO Unavailable Evangelista Jurado MD Unavailable [phone] Corrie Freedman MD Unavailable [phone] Unknown, Unknown Primary Care Provider Alton Gallardo [...] he can establish w/ new doctor in [facility]. Assessment & Plan (07/08/2020 9:55 AM EDT): [...] with bilateral pelvic lymph node dissection for [place] 6P T3a prostate cancer with benign glands [...] to establish with a new urologist in [facility] once he meets his primary care physician. I asked him to call with any questions or concerns. Assessment & Plan (01/08/2021 5:18 PM EDT): Now approximately 6 weeks status post robotic radical prostatectomy with bilateral pelvic lymph node dissection with path showing Philadelphia 6 disease but with extracapsular extension of the posterior right mid apex and benign glands at the left apical margin. PSA checked today in clinic. I will call him with results. Ultimately, he needs to transition his care to a local urologist in [facility] where he now resides. He is going to talk to his new primary care physician about a referral. In the meantime, I put him in for a PSA to be done in another 6 weeks or so, and he will have his new doctor fax me the results. Assessment & Plan (12/17/2020 5:38 PM EDT): [place] 6 PT3a N0 MX prostate cancer, now roughly 1 month status post radical prostatectomy with lymph node dissection. Initial surveillance PSA in another couple of weeks for high risk pathology. Assessment & Plan (11/27/2020 4:02 PM EDT): Shanelle 5 [id number] prostate cancer with focal extraprostatic extension at the posterior right mid apex and benign glands at the left apical margin. He did have a very small amount of Philadelphia pattern 4 only comprising 1 to 2% [...] 4:35 PM EDT): P T3a N0 MX Philadelphia 6 prostate cancer status post robotic radical [...] of anesthesia including but not limited to NJ, CVA, DVT, and PE. With respect to [...] He is seeing radiation oncology up in [place] tomorrow to discuss primary radiation for prostate cancer. All questions were answered. Patient verbalized understanding. He is interested in surgery, so I will look for time in the coming months. 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 Assessment & Plan (09/25/2020 1:47 PM EDT): [...] on patient's age to complete this topic IPV VACCINES Aged Out No longer eligi ble based on patient's age to complete this topic MENINGOCOCCAL VACCINES (ACWY) Aged Out No longer eligible based on patient's age to complete this topic MENINGOCOCCAL VACCINES (B) Aged Out N o longer eligible based on patient's age to complete this topic Medical Devices Implanted Type [employer] Device Identifier Shelf Expiration Date Model / [...] hemorrhage. There is a small hiatal hernia. Alirio Shahid MD IMG CT ABD/PELVIS Final Result * Basic metabolic panel (12/11/2020 3:50 PM EDT) SODIUM 139 136 - 145 mmol/L [facility] CHLORIDE 101 98 - 107 mmol/L [facility] POTASSIUM 4.3 3.6 - 5.1 mmol/L [facility] CO2 28 22 - 32 mmol/L [facility] BUN 20 6 - 20 mg/dL [facility] CREATININE 1.12 0.6 - 1.3 mg/dL [facility] GLUCOSE 82 65 - 99 mg/dL [facility] CALCIUM 9.1 8.9 - 10.3 mg/dL [facility] EGFR 68 60 - 128 mL/min/1.7 3m2 [facility] Comment:Estimated glomerular filtration rate calculated using the CKD-EPI equation. ANION GAP 10 3 - 17 mmol/L [facility] Blood 12/11/2020 3:50 PM EDT 12/11/2020 7:00 PM EDT Alirio Shahid MD LAB BLOOD BKR [place] [address], [facility] [phone] * COLONOSCOPY FOR RESULT ENTRY ONLY (08/26/2018) Colonoscopy colocn polyp Mau Provider HEALTH MAINTENANCE Final Result from Last 3 Months or Most Recently Relevant to Health Maintenance Insurance [employer] [place] [id number] [employer] RE[employer] Advance Directives For more information, please contact: [phone] (9AM - 5PM [facility], Tuesday-Tuesday) Documents on File Type Date Recorded Patient [employer] Expl anation Healthcare Proxy 11/21/2020 11:35 AM Care Teams Bullet Slugs Inspector Relationship Specialty Start Date End Date Unknown, Unknown, PCP - General 09/08/21 Marck Flood MD [address] [place] [address] Historical LMR Provider 05/04/18 Giovanni Hernadez DO [address] [place] [phone] Urology 05/17/19 Evangelista Jurado MD [address] [place] [address] Cardiology 05/17/19 Corrie Freedman MD [address] [place] [address] [email or web address] Gastroenterology 05/17/19 Alton Ace MD Ophthalmology 05/27/22 Additional Source Comments The information contained in this document represents components of the legal health record. It is not the complete legal health record.[facility]
[2025-02-14 08:37] VITALS: BP 110/60; PULSE 52; RESP 14; TEMP 36.8; O2SAT 98; BMI 27.5
== END 2025-02-14 08:56 | disposition home or self-care (01) ==
LOC: HO.HMCFM 08:17
PROVIDERS: PCP Family Medicine; Visit Provider Family Medicine
DX: I10 Essential (primary) hypertension (principal); I25.10 Atherosclerotic heart disease of native coronary artery without angina pectoris; N18.31 Chronic kidney disease, stage 3a; R74.8 Abnormal levels of other serum enzymes

== ENCOUNTER → 2025-02-14 08:16 | Outpatient (BNVA) | payer MEDICARE, SELFPAY ==
[2022-12-24 05:51] VITALS: BP 120/58; BP 132/56; BMI 27.8
== END ==
PROVIDERS: PCP Family Medicine; Visit Provider Family Medicine
DX: I12.9 Hypertensive chronic kidney disease with stage 1 through stage 4 chronic kidney disease, or unspecified chronic kidney disease (principal); I25.10 Atherosclerotic heart disease of native coronary artery without angina pectoris; R74.8 Abnormal levels of other serum enzymes; N18.31 Chronic kidney disease, stage 3a
CPT/HCPCS: 99212